=== PATIENT | male | born 1970 | race Hispanic/Latino ===

== ENCOUNTER 2020-03-11 14:38 | Emergency (ER) | payer MEDICARE ==
--- NOTE | 2020-03-11 20:45 | Emergency Department Report ---
ED Medical Clearance HPI - General Chief complaint: Medical Clearance Stated complaint: MED REFILL/BLOOD WORK Time Seen by Provider: 03/11/20 20:31 Source: patient Mode of arrival: Ambulatory Limitations: No Limitations - History of Present Illness Initial comments: Patient is a 50-year-old male that presents emergency room with complaints of being out of his Prozac, metformin and clozapine. Patient states he ran out of his medications 2 weeks ago. Patient states he has an appointment next Saturday at [facility] for refills. Patient states he is unable to get refills from his previous doctor in [place] due to not having recent labs. Patient denies pain. Patient denies suicidal and homicidal ideation. Patient denies hallucinations. Patient denies any racing thoughts. Patient denies any psychosis symptoms. Patient states he is feeling nervous since he has not had his medications in so long. Patient denies recent travel. Patient denies recent international travel. Patient denies exposure to the novel coronavirus. Patient denies sick contacts. Patient denies fever and chills. Patient denies cough. Patient denies corie rrhea. Patient denies coming in contact with anybody with symptoms of the novel coronavirus. Complaint: medical clearance request -: Sudden Reason for Medical Clearance: psychiatric condition Alledged Intoxication: No Compliant with Home Medications: No Home medications: Home Medications Medication Instructions Recorded Confirmed Last Taken amLODIPine [Norvasc] 5 mg PO DAILY 01/09/14 03/09/16 01/09/14 cloZAPine (NF) 600 mg PO QHS 01/09/14 03/09/16 01/08/14 cloZAPine (NF) [Clozapine] 200 mg PO QAM 01/09/14 03/09/16 01/09/14 metFORMIN [Glucophage] 1,000 mg PO QAM 01/09/14 03/09/16 01/09/14 metFORMIN [Glucophage] 500 mg PO QHS 01/09/14 03/09/16 01/09/14 Previous Rx's Medication Instructions Recorded Last Taken Type FLUoxetine [PROzac] 20 mg PO QDAY #14 capsule 03/09/16 Unknown Rx Allergies/Adverse reactions: Allergies Allergy/AdvReac Type Severity Reaction Status Date / Time No Known Allergies Allergy Verified 03/09/16 05:40 ED Review of Systems ROS: Stated complaint: MED REFILL/BLOOD WORK Other details as noted in HPI Comment: Unobtainable due to pts medical conditions Constitutional: denies: chills, fever Eyes: denies: eye pain, eye discharge, vision change ENT: denies: ear pain, throat pain Respiratory: denies: cough, shortness of breath, wheezing Cardiovascular: denies: chest pain, palpitations Endocrine: no symptoms reported Gastrointestinal: denies: abdominal pain, nausea, diarrhea Genitourinary: denies: urgency, dysuria Musculoskeletal: denies: back pain, joint swelling, arthralgia Skin: denies: rash, lesions Neurological: denies: headache, weakness, paresthesias Psychiatric: anxiety. denies: depression Hematological/Lymphatic: denies: easy bleeding, easy bruising ED Past Medical Hx - Past Medical History Previous Medical History?: Yes Hx Hypertension: Yes Hx Diabetes: Yes Hx Psychiatric Treatment: Yes (BIPOLAR/SCHIZO) Additional medical history: depression - Surgical History Past Surgical History?: No - Social History Smoking Status: Never Smoker Substance Use Type: None - Medications Home Medications: Home Medications Medication Instructions Recorded Confirmed Last Taken Type amLODIPine [Norvasc] 5 mg PO DAILY 01/09/14 03/09/16 01/09/14 History cloZAPine (NF) 600 mg PO QHS 01/09/14 03/09/16 01/08/14 History cloZAPine (NF) [Clozapine] 200 mg PO QAM 01/09/14 03/09/16 01/09/14 History metFORMIN [Glucophage] 1,000 mg PO QAM 01/09/14 03/09/16 01/09/14 History metFORMIN [Glucophage] 500 mg PO QHS 01/09/14 03/09/16 01/09/14 History FLUoxetine [PROzac] 20 mg PO QDAY #14 capsule 03/09/16 Unknown Rx ED Physical Exam - General Limitations: No Limitations General appearance: alert, in no apparent distress - Head Head exam: Present: atraumatic, normocephalic - Eye Eye exam: Present: normal appearance - ENT ENT exam: Present: mucous membranes moist - Neck Neck exam: Present: normal inspection - Respiratory Respiratory exam: Present: normal lung sounds bilaterally. Absent: respiratory distress - Cardiovascular Cardiovascular Exam: Present: regular rate, normal rhythm. Absent: systolic murmur, diastolic murmur, rubs, gallop - GI/Abdominal GI/Abdominal exam: Present: soft, normal bowel sounds - Rectal Rectal exam: Present: deferred - Extremities Exam Extremities exam: Present: normal inspection - Back Exam Back exam: Present: normal inspection - Neurological Exam Neurological exam: Present: alert, oriented X3 - Psychiatric Psychiatric exam: Present: normal affect, normal mood - Skin Skin exam: Present: warm, dry, intact, normal color. Absent: rash ED Course Vital Signs 03/11/20 03/11/20 03/11/20 14:39 21:22 21:26 Temperature 98.5 F 98.6 F 98.4 F Pulse Rate 97 H 87 85 Respiratory 18 16 16 Rate Blood Pressure 132/86 134/95 Blood Pressure 134/95 [Right] O2 Sat by Pulse 97 96 96 Oximetry - Reevaluation(s) Reevaluation #1: I discussed all clinical findings with patient. I discussed plan of care with patient. Patient agrees with plan of care. Patient is stable for discharge. Patient will be discharged home. Patient given discharge instructions. Patient voiced understanding of discharge instructions. 03/11/20 20:53 ED Medical Decision Making - Medical Decision Making Patient is a 50-year-old male that presents emergency room with complaints of needing refills. Patient states he is been out of his medications for 2 weeks. Patient does not have any emergency medical condition. Patient had a medical clearance exam. Patient is medically cleared for discharge. Patient already has an appointment for a follow-up with [facility]. Patient will be given resources for this community. Patient does not require further emergency medical treatment. Patient does not require inpatient psychiatric treatment. Patient does not need a 1013. - Differential Diagnosis Medication refill, anxiety ED Disposition Clinical Impression: Medication refill Schizophrenia Qualifiers: Schizophrenia type: unspecified Qualified Code(s): F20.9 - Schizophrenia, unspecified Disposition: Z-07 MED SCREENING EXAM-LEFT Is pt being admited?: No Does the pt Need Aspirin: No Condition: Stable Instructions: Anxiety (ED) Additional Instructions: Patient to follow-up with primary care in 2 to 3 days. Patient to follow-up with mental health in 2 to 3 days. Patient to rest. Patient to increase water. . Patient to return to the ER if condition worsens, changes or new symptoms arise. Referrals: ELIANA RECINOS MD [Primary Care Provider] - 2-3 Days GRANT MAC MD [Staff Physician] - GM Time of Disposition: 20:56
[2020-03-11 21:25] VITALS: BP 134/95
== END 2020-03-11 21:27 | disposition left against medical advice (07) ==
LOC: ED 14:38
DX: F20.9 Schizophrenia, unspecified (principal); I10 Essential (primary) hypertension; E11.9 Type 2 diabetes mellitus without complications; F32.9 Major depressive disorder, single episode, unspecified; Z76.0 Encounter for issue of repeat prescription; Z79.899 Other long term (current) drug therapy
CPT/HCPCS: 99282

== ENCOUNTER 2020-12-30 18:30 | Emergency (ER) | payer MEDICARE ==
--- NOTE | 2020-12-30 18:57 | Event Note ---
ED Screening Note Date of service: 12/30/20 Time: 18:54 ED Screening Note: 50-year-old male patient with history of diabetes presents to the emergency department with complaints of rash progressively worsening for 2 weeks. Describes the rash as "burning." The rash is primarily localized to his arms and the back of his neck. No new medications. No current antibiotic use. No recent travel. No new chemical exposures. Patient sometimes works with bleach but states his arms did not come into direct contact with the product. General: Awake, appropriately interactive, no acute distress. Neck: Supple. Full range of motion intact. Cardiovascular: Normal peripheral perfusion. Pulmonary: No respiratory distress. Patient is speaking normally without use of accessory muscles. Skin: Erythematous macular rash to the upper extremities. Well-demarcated. Increased warmth on palpation. Neurological: No facial asymmetry. Speech is clear. Follows commands. Patient is alert and oriented. Musculoskeletal: Moves all four extremities spontaneously with normal range of motion. Psych: Cooperative. Appropriate mood and affect. I have greeted and performed a focused rapid initial assessment of this patient. A comprehensive ED assessment and evaluation of the patient, analysis of all test results, and completion of the medical decision-making process will be conducted by additional ED providers. This initial assessment/diagnostic orders/clinical plan/treatment(s) is/are subject to change based on patients health status, clinical progression and re-assessment. Further treatment and workup at subsequent clinical provider's discretion. Patient/guardian urged not to elope from the ED as their condition may be serious if not clinically assessed and managed.
[2020-12-30 19:46] LABS: Basophils # (Auto) 0.1 K/mm3 (0.0-0.1); Eosinophils # (Auto) 0.4 K/mm3 (0.0-0.4); Eosinophils % (Auto) 4.4 % (0.0-4.3); Hematocrit 39.2 % (35.5-45.6); Hemoglobin 13.2 gm/dl (11.8-15.2); Lymphocytes % (Auto) 12.1 % (13.4-35.0); Mean Corpuscular HGB Conc 34 % (32-34); Mean Corpuscular Volume 75 fl (84-94); Monocytes # (Auto) 0.5 K/mm3 (0.0-0.8); Monocytes % (Auto) 5.6 % (0.0-7.3); Platelet Count 243 K/mm3 (140-440); Red Blood Count 5.23 M/mm3 (3.65-5.03); Red Cell Distribution Width 14.6 % (13.2-15.2)
[2020-12-30 20:03] LABS: BUN/Creatinine Ratio 8; Blood Urea Nitrogen 9 mg/dL (9-20); Calcium 8.5 mg/dL (8.4-10.2); Hemolysis Index 14
--- NOTE | 2020-12-30 21:36 | Emergency Department Report ---
ED General Adult HPI - General Chief complaint: Burn/Smoke Inhalation Stated complaint: ALLERGIC REACTION Time Seen by Provider: 12/30/20 20:46 Source: patient Mode of arrival: Ambulatory Limitations: No Limitations - History of Present Illness Initial comments: 50-year-old male, history of schizophrenia, diabetes, presents to ED with redness to bilateral arms. Patient reports onset 2 weeks ago. Patient denies pain, but reports burning sensation to both arms. Patient also states he has been scratching his arms because they have been itching. Patient states he initially thought it was sunburn from being outside. Patient states he takes Metformin, Prozac, and clozapine. Patient denies any new medications. Patient states he has been treating this with cocoa butter and Vaseline. Both hands and arms are swollen. Patient states he uses bleach to clean his dishes and bathroom, but states his arms did not come in contact with the bleach. States he uses regular household cleaning spray that has bleach in it. He denies any new lotions, soaps. Patient does not have any other part of his body that has been affected, only bilateral arms and hands. Shoulders and upper arms are not affected either. It appears to be a well demarcated area of exposed skin. Erythema stops where his T-shirt sleeve begins. Patient denies dipping his arms into anything. Patient denies any oral lesions. Patient denies fever. Patient states he may have a history of psoriasis, he is unsure. She states he has an appointment with his PCP on Saturday, January 02. He is also requesting refills on his Metformin. -: week(s) (2) Location: left, right, upper extremity Severity scale (0 -10): 8 Quality: burning Consistency: constant Improves with: none Worsens with: none Associated Symptoms: denies: fever/chills Treatments Prior to Arrival: other (Vaseline, cocoa butter) - Related Data Home Medications Medication Instructions Recorded Confirmed Last Taken amLODIPine [Norvasc] 5 mg PO DAILY 01/09/14 03/09/16 01/09/14 cloZAPine (NF) 600 mg PO QHS 01/09/14 03/09/16 01/08/14 cloZAPine (NF) [Clozapine] 200 mg PO QAM 01/09/14 03/09/16 01/09/14 metFORMIN [Glucophage] 1,000 mg PO QAM 01/09/14 03/09/16 01/09/14 Previous Rx's Medication Instructions Recorded Last Taken Type FLUoxetine [PROzac] 20 mg PO QDAY #14 capsule 03/09/16 Unknown Rx Clindamycin [Clindamycin CAP] 300 mg PO Q8H 10 Days #30 cap 12/30/20 Unknown Rx diphenhydrAMINE [Benadryl CAP] 25 mg PO Q8HR #30 capsule 12/30/20 Unknown Rx metFORMIN [Glucophage] 500 mg PO BID #60 12/30/20 Unknown Rx predniSONE [Deltasone] 50 mg PO QDAY #5 tab 12/30/20 Unknown Rx Allergies Allergy/AdvReac Type Severity Reaction Status Date / Time No Known Allergies Allergy Verified 03/09/16 05:40 ED Review of Systems ROS: Stated complaint: ALLERGIC REACTION Other details as noted in HPI Comment: All other systems reviewed and negative Constitutional: denies: chills, fever Skin: as per HPI ED Past Medical Hx - Past Medical History Previous Medical History?: Yes Hx Hypertension: Yes Hx Diabetes: Yes Hx Psychiatric Treatment: Yes (BIPOLAR/SCHIZO) Additional medical history: depression - Surgical History Past Surgical History?: No - Social History Smoking Status: Never Smoker Substance Use Type: None - Medications Home Medications: Home Medications Medication Instructions Recorded Confirmed Last Taken Type amLODIPine [Norvasc] 5 mg PO DAILY 01/09/14 03/09/16 01/09/14 History cloZAPine (NF) 600 mg PO QHS 01/09/14 03/09/16 01/08/14 History cloZAPine (NF) [Clozapine] 200 mg PO QAM 01/09/14 03/09/16 01/09/14 History metFORMIN [Glucophage] 1,000 mg PO QAM 01/09/14 03/09/16 01/09/14 History FLUoxetine [PROzac] 20 mg PO QDAY #14 capsule 03/09/16 Unknown Rx Clindamycin [Clindamycin CAP] 300 mg PO Q8H 10 Days #30 cap 12/30/20 Unknown Rx diphenhydrAMINE [Benadryl CAP] 25 mg PO Q8HR #30 capsule 12/30/20 Unknown Rx metFORMIN [Glucophage] 500 mg PO BID #60 12/30/20 Unknown Rx predniSONE [Deltasone] 50 mg PO QDAY #5 tab 12/30/20 Unknown Rx ED Physical Exam - General Limitations: No Limitations General appearance: alert, in no apparent distress - Head Head exam: Present: atraumatic, normocephalic - Eye Eye exam: Present: normal appearance, EOMI - ENT ENT exam: Present: mucous membranes moist - Neck Neck exam: Present: normal inspection - Respiratory Respiratory exam: Present: normal lung sounds bilaterally. Absent: respiratory distress - Cardiovascular Cardiovascular Exam: Present: regular rate, normal rhythm - GI/Abdominal GI/Abdominal exam: Present: soft. Absent: distended, tenderness - Extremities Exam Extremities exam: Present: full ROM, other (Mild swelling to bilateral hands, forearms, upper arms) - Neurological Exam Neurological exam: Present: alert, oriented X3. Absent: motor sensory deficit - Psychiatric Psychiatric exam: Present: normal affect, normal mood - Skin Skin exam: Present: other (Erythema present to the bilateral arms from the mid upper arm down to the fingers; well-demarcated line with the t-shirt sleeves; no tenderness to palpation; no blisters or bullae present; hands appear macerated) ED Course Vital Signs 12/30/20 12/30/20 12/30/20 18:49 21:37 21:39 Temperature 99.4 F 99.9 F H Pulse Rate 87 94 H Respiratory 20 18 Rate Blood Pressure 202/104 145/79 [Right] O2 Sat by Pulse 97 99 Oximetry 12/30/20 23:23 Temperature Pulse Rate Respiratory 16 Rate Blood Pressure [Right] O2 Sat by Pulse Oximetry ED Medical Decision Making - Lab Data Result diagrams: 12/30/20 19:13 12/30/20 19:13 - Medical Decision Making 50-year-old male presents to ED with redness to bilateral arms x2 weeks. Patient is afebrile. Patient has no blisters or bullae present. Patient has no mucosal lesions present. Patient has well demarcated line on his upper arms bilaterally which suggests exposure to some sort of irritant. WBCs are normal. Remainder of labs are unremarkable. Patient has upcoming appointment in 3 days with his PCP. Patient will be discharged at this time. Patient has not been on any medications thus far for the skin condition. Patient will be given prescription for Benadryl, clindamycin, prednisone. He will also be given information for follow-up with a rotary drier feeder. Return precautions given. - Differential Diagnosis Sunburn, allergic reaction, chemical exposure Critical care attestation.: If time is entered above; I have spent that time in minutes in the direct care of this critically ill patient, excluding procedure time. ED Disposition Clinical Impression: Dermatitis Disposition: DC-01 TO HOME OR SELFCARE Is pt being admited?: No Condition: Stable Instructions: Rash, Adult Additional Instructions: Please call to make an appointment with the rotary drier feeder: Dr Earl Santoyo- rotary drier feeder [phone] [place] [address] [address] [place] [address] Return to the ER immediately if: you develop fever, the rash spreads, you develop oral lesions. Prescriptions: diphenhydrAMINE [Benadryl CAP] 25 mg PO Q8HR #30 capsule Clindamycin [Clindamycin CAP] 300 mg PO Q8H 10 Days #30 cap predniSONE [Deltasone] 50 mg PO QDAY #5 tab metFORMIN [Glucophage] 500 mg PO BID #60 Referrals: PRIMARY CARE, [Primary Care Provider] - 3-5 Days Time of Disposition: 22:04
[2020-12-30 21:39] VITALS: BP 145/79
== END 2020-12-30 22:25 | disposition home or self-care (01) ==
LOC: ED 18:30
DX: L30.9 Dermatitis, unspecified (principal); I10 Essential (primary) hypertension; E11.9 Type 2 diabetes mellitus without complications; F31.9 Bipolar disorder, unspecified; Z79.84 Long term (current) use of oral hypoglycemic drugs; Z79.899 Other long term (current) drug therapy
CPT/HCPCS: 36415; 80048; 85025

== ENCOUNTER 2021-06-07 22:44 | Inpatient (IN) | payer MEDICARE ==
[2021-06-07] MEDS ORDERED: SODIUM CHLORIDE 0.9% 1000 ML 1,000 ML IV ONE (23:03)
[2021-06-07] MEDS ORDERED: ONDANSETRON 4 MG/2 ML INJ IV ONE (23:03)
[2021-06-07] MEDS ORDERED: MORPHINE 4 MG/1 ML INJ IV ONE (23:04)
--- NOTE | 2021-06-07 23:06 | Emergency Department Report ---
<CAIT BURNS - Last Filed: 06/08/21 00:39> ED Abdominal Pain HPI - General Chief Complaint: Abdominal Pain Stated Complaint: ABD PAIN Time Seen by Provider: 06/07/21 22:57 Source: patient, EMS Mode of arrival: Stretcher Limitations: No Limitations - History of Present Illness Initial Comments: 51-year-old male with a past medical history of schizophrenia, bipolar disorder, and diabetes presents to the hospital complaining abdominal pain for the past 3 to 4 days. Pain is intermittent in the lower abdomen worse with palpation. Positive associated diarrhea without nausea, vomiting, melena, or hematochezia. Low-grade temp of 100.2 noted here in the ED. Patient is vaccinated for Covid. Patient presents tachycardic. He did not have anything to eat today. He has not taken his evening dose of his twice daily clonazepam. Patient denies previous abdominal surgeries. - Related Data Home Medications Medication Instructions Recorded Confirmed Last Taken amLODIPine [Norvasc] 5 mg PO DAILY 01/09/14 03/09/16 01/09/14 cloZAPine (NF) 600 mg PO QHS 01/09/14 03/09/16 01/08/14 cloZAPine (NF) [Clozapine] 200 mg PO QAM 01/09/14 03/09/16 01/09/14 metFORMIN [Glucophage] 1,000 mg PO QAM 01/09/14 03/09/16 01/09/14 Previous Rx's Medication Instructions Recorded Last Taken Type FLUoxetine [PROzac] 20 mg PO QDAY #14 capsule 03/09/16 Unknown Rx Clindamycin [Clindamycin CAP] 300 mg PO Q8H 10 Days #30 cap 12/30/20 Unknown Rx diphenhydrAMINE [Benadryl CAP] 25 mg PO Q8HR #30 capsule 12/30/20 Unknown Rx metFORMIN [Glucophage] 500 mg PO BID #60 12/30/20 Unknown Rx predniSONE [Deltasone] 50 mg PO QDAY #5 tab 12/30/20 Unknown Rx Allergies Allergy/AdvReac Type Severity Reaction Status Date / Time No Known Allergies Allergy Verified 06/07/21 22:55 ED Review of Systems Comment: All other systems reviewed and negative ED Past Medical Hx - Past Medical History Hx Hypertension: Yes Hx Diabetes: Yes Hx Psychiatric Treatment: Yes (BIPOLAR/SCHIZO) Additional medical history: depression - Social History Smoking Status: Never Smoker Substance Use Type: None - Medications Home Medications: Home Medications Medication Instructions Recorded Confirmed Last Taken Type amLODIPine [Norvasc] 5 mg PO DAILY 01/09/14 03/09/16 01/09/14 History cloZAPine (NF) 600 mg PO QHS 01/09/14 03/09/16 01/08/14 History cloZAPine (NF) [Clozapine] 200 mg PO QAM 01/09/14 03/09/16 01/09/14 History metFORMIN [Glucophage] 1,000 mg PO QAM 01/09/14 03/09/16 01/09/14 History FLUoxetine [PROzac] 20 mg PO QDAY #14 capsule 03/09/16 Unknown Rx Clindamycin [Clindamycin CAP] 300 mg PO Q8H 10 Days #30 cap 12/30/20 Unknown Rx diphenhydrAMINE [Benadryl CAP] 25 mg PO Q8HR #30 capsule 12/30/20 Unknown Rx metFORMIN [Glucophage] 500 mg PO BID #60 12/30/20 Unknown Rx predniSONE [Deltasone] 50 mg PO QDAY #5 tab 12/30/20 Unknown Rx ED Physical Exam - General Limitations: No Limitations - Other Other exam information: General: No acute distress Head: Atraumatic Eyes: normal appearance ENT: Moist mucous membranes Neck: Normal appearance, no midline tenderness Chest: Clear to auscultation bilaterally CV: Tachycardic regular rate and rhythm Abdomen: Soft, normal bowel sounds,. Right lower quadrant tenderness without rebound or guarding Back: Normal inspection Extremity: Normal inspection, full range of motion Neuro: Alert O x 3, no facial asymmetry, speech clear, no gross motor sensory deficit Psych: Appropriate behavior Skin: No rash ED Medical Decision Making - Lab Data Result diagrams: 06/07/21 23:34 - EKG Data -: EKG Interpreted by Me EKG shows normal: sinus rhythm, intervals (VT and QTc intervals within normal limit), QRS complexes (QRS duration normal limits), ST-T waves (no stemi) Rate: tachycardia (128) - EKG Data When compared to previous EKG there are: no significant change - Medical Decision Making Patient's tachycardia either secondary to dehydration, pain, fever, infection, or clonazepam withdrawal. Patient signed out to evening physician to follow-up chemistries as well as CT abdomen pelvis ED Disposition Clinical Impression: Acute appendicitis Disposition: 09 ADMITTED INPATIENT Condition: Stable Referrals: PRIMARY CARE, [Primary Care Provider] - 3-5 Days <COLE BASILIO - Last Filed: 06/08/21 01:48> ED Review of Systems ROS: Stated complaint: ABD PAIN Other details as noted in HPI ED Course Vital Signs 06/07/21 06/07/21 06/08/21 22:55 23:45 01:34 Temperature 100.2 F H Pulse Rate 120 H Respiratory 20 20 Rate Blood Pressure 154/114 [Left] O2 Sat by Pulse 97 98 Oximetry ED Medical Decision Making - Lab Data Result diagrams: 06/07/21 23:34 06/07/21 23:34 - Medical Decision Making 51-year-old male with a past medical history of schizophrenia, bipolar disorder, and diabetes presents to the hospital complaining abdominal pain for the past 3 to 4 days. Pain is intermittent in the lower abdomen worse with palpation. Positive associated diarrhea without nausea, vomiting, melena, or hematochezia. Low-grade temp of 100.2 noted here in the ED. Patient is vaccinated for Covid. Patient presents tachycardic. He did not have anything to eat today. He has not taken his evening dose of his twice daily clonazepam. Patient denies previous abdominal surgeries. Labs reviewed and showed leukocytosis. CT abdomen and pelvis with IV contrast showed acute appendicitis with contained perforation. I discussed the patient with Dr. Garcia, surgeon on-call. She stated that she will see the patient. I discussed the patient with Dr. Ho, he agreed to admit the patient to medical service for further management. Critical Care Time: Yes Critical care time in (mins) excluding proc time.: 35 Critical care attestation.: If time is entered above; I have spent that time in minutes in the direct care of this critically ill patient, excluding procedure time. ED Disposition Is pt being admited?: Yes
[2021-06-07 23:49] LABS: Hematocrit 41.4 % (35.5-45.6); Hemoglobin 13.8 gm/dl (11.8-15.2); Mean Corpuscular HGB Conc 33 % (32-34); Mean Corpuscular Volume 75 fl (84-94); Platelet Count 180 K/mm3 (140-440); Red Blood Count 5.55 M/mm3 (3.65-5.03); Red Cell Distribution Width 15.1 % (13.2-15.2)
[2021-06-07] MEDS ORDERED: ACETAMINOPHEN 325 MG TAB PO ONE (23:51)
[2021-06-08 00:50] LABS: Albumin 4.5 g/dL (3.9-5); Bilirubin,Direct 0.3 mg/dL (0-0.2); Calcium 9.1 mg/dL (8.4-10.2)
--- NOTE | 2021-06-08 01:20 | Cat Scan Report ---
CT ABDOMEN AND PELVIS WITH CONTRAST INDICATION / CLINICAL INFORMATION: Lower abdominal pain with diarrhea. TECHNIQUE: Axial CT images were obtained through the abdomen and pelvis after 100 mL Omnipaque [address] scans at this location are performed using CT dose reduction for ALARA by means of automated exposure control. COMPARISON: None available. FINDINGS: LOWER CHEST: Tiny bilateral pleural effusions. LIVER: Mild hepatic steatosis. Simple appearing cyst in the posterior segment of the right lobe. GALLBLADDER: Several tiny, layering gallstones without gallbladder wall thickening or inflammation. BILE DUCTS: No significant abnormality. PANCREAS: No significant abnormality. SPLEEN: No significant abnormality. ADRENALS: No significant abnormality. RIGHT KIDNEY / URETER: Enhancing mass on the lower pole measuring 3.6 x 4.0 x 4.2 cm. LEFT KIDNEY / URETER: 4.4 cm simple cyst on the lower pole. No significant abnormality. STOMACH / SMALL BOWEL: Fluid-filled, mildly dilated loops of small bowel likely representing ileus. COLON: Mild thickening of the sigmoid colon adjacent to the inflamed appendix. APPENDIX: Dilated and inflamed appendix with moderate adjacent periappendiceal inflammation. Small fo cus of extraluminal gas adjacent to the appendix likely representing contained perforation as seen on axial series 2 image 144 and coronal image 91. No abscess. PERITONEUM: No free fluid. No free air. No fluid collection. LYMPH NODES: No significant adenopathy. AORTA / ARTERIES: No significant abnormality. IVC / VEINS: No significant abnormality. URINARY BLADDER: No significant abnormality. REPRODUCTIVE ORGANS: No significant abnormality. ADDITIONAL FINDINGS: None. SKELETAL SYSTEM: No significant abnormality. IMPRESSION: 1. Acute appendicitis with small area of contained perforation. No abscess. 2. Small bowel ileus and sigmoid thickening related to appendicitis. 3. Enhancing mass of the lower pole of the right kidney measuring up to 4.2 cm likely representing re nal cell carcinoma. No adenopathy or metastatic disease. 4. Mild hepatic steatosis and cholelithiasis. Signer Name: Alcides Cornelius MD Signed: 06/08/2021 1:15 AM Workstation Name: [id number]
[2021-06-08] MEDS ORDERED: PIPERACILLIN/TAZOBACTAM 3.375 3.375 GM/50 ML BAG IV ONE (01:23)
[2021-06-08] MEDS ORDERED: MORPHINE 2 MG/1 ML INJ IV PRN (02:20)
[2021-06-08] MEDS ORDERED: NALOXONE 0.4 MG/1 ML INJ IV PRN (02:20)
[2021-06-08] MEDS ORDERED: DEXTROSE 50% IN WATER (25GM) 50 ML SYRINGE IV PRN (02:20)
[2021-06-08] MEDS ORDERED: ACETAMINOPHEN 650 MG RECT SUPP PR PRN (02:20)
[2021-06-08] MEDS ORDERED: hydrALAZINE 20 MG/1 ML INJ IV PRN (02:25)
[2021-06-08 02:54] LABS: Total Cells Counted 100
[2021-06-08 02:55] LABS: Anisocytosis RARE; Hypochromasia 1+
--- NOTE | 2021-06-08 02:55 | History and Physical Report ---
History of Present Illness Date of examination: 06/08/21 Date of admission: 06/08/2021 Chief complaint: abdominal pain, nausea History of present illness: 51-year-old male with history of schizophrenia, bipolar disorder, DM2, HTN, who presents to [facility] ED with complaints of abdominal pain. Reports aching intermittent 8/10 right lower quadrant abdominal pain which is worse with palpation x 3-4 days. Endorses diarrhea, nausea, and temperature (TMAX 100.2). Denies emesis, melena, hematochezia, recent foodborne illness, or recent sick contacts. Patient is vaccinated for COVID-19. Denies SALINAS, CP, SOB, constipation, dysuria, hematuria, cough, history of abdominal surgery, or recent sick contacts Past History Past Medical History: diabetes (Type II), hypertension, other (Schizophrenia, bipolar disorder, obesity) Past Surgical History: Other (Orchidectomy (childhood surgery)) Social history: single, lives with family (Sister and niece), full code. denies: smoking, alcohol abuse, prescription drug abuse Family history: hypertension Medications and Allergies Allergies Allergy/AdvReac Type Severity Reaction Status Date / Time No Known Allergies Allergy Verified 06/07/21 22:55 Home Medications Medication Instructions Recorded Confirmed Last Taken Type amLODIPine [Norvasc] 5 mg PO DAILY 01/09/14 03/09/16 01/09/14 History cloZAPine (NF) 600 mg PO QHS 01/09/14 03/09/16 01/08/14 History cloZAPine (NF) [Clozapine] 200 mg PO QAM 01/09/14 03/09/16 01/09/14 History metFORMIN [Glucophage] 1,000 mg PO QAM 01/09/14 03/09/16 01/09/14 History FLUoxetine [PROzac] 20 mg PO QDAY #14 capsule 03/09/16 Unknown Rx Clindamycin [Clindamycin CAP] 300 mg PO Q8H 10 Days #30 cap 12/30/20 Unknown Rx diphenhydrAMINE [Benadryl CAP] 25 mg PO Q8HR #30 capsule 12/30/20 Unknown Rx metFORMIN [Glucophage] 500 mg PO BID #60 12/30/20 Unknown Rx predniSONE [Deltasone] 50 mg PO QDAY #5 tab 12/30/20 Unknown Rx Active Meds: Active Medications Acetaminophen (Acetaminophen 650 Mg Rect Supp) 650 mg [place] Q4H PRN PRN Reason: Pain MILD(1-3)/Fever >100.5/SALINAS Dextrose (Dextrose 50% In Water (25gm) 50 Ml Syringe) 50 ml IV Q30MIN PRN; Protocol PRN Reason: Hypoglycemia Famotidine (Famotidine 20 Mg/2 Ml Inj) 10 mg IV BID [place] Heparin Sodium (Porcine) (Heparin 5,000 Unit/1 Ml Vial) 5,000 unit SUB-Q Q12HR [facility] Hydralazine HCl (Hydralazine 20 Mg/1 Ml Inj) 5 mg IV Q4HR PRN PRN Reason: Blood Pressure Hydromorphone HCl (Hydromorphone 1 Mg/1 Ml Inj) 0.5 mg IV Q3H PRN PRN Reason: Pain , Severe (7-10) Dextrose/Sodium Chloride (D5ns) 1,000 mls @ 75 mls/hr IV DIRECT [facility] Insulin Human Lispro (Insulin Lispro 100 Unit/Ml) 0 unit SUB-Q Q6HR [facility]; Protocol Morphine Sulfate (Morphine 2 Mg/1 Ml Inj) 2 mg IV Q4H PRN PRN Reason: Pain, Moderate (4-6) Naloxone HCl (Naloxone 0.4 Mg/1 Ml Inj) 0.1 mg IV Q2MIN PRN PRN Reason: Res Rate </= 8 or 02 SAT < 92% Ondansetron HCl (Ondansetron 4 Mg/2 Ml Inj) 4 mg IV Q6H PRN PRN Reason: Nausea And Vomiting Sodium Chloride (Sodium Chloride 0.9% 10 Ml Flush Syringe) 10 ml IV BID [place] Sodium Chloride (Sodium Chloride 0.9% 10 Ml Flush Syringe) 10 ml IV PRN PRN PRN Reason: LINE FLUSH Review of Systems All systems: negative (As noted in HPI) Exam - Physical Exam Narrative exam: Physical exam General appearance: Present: No acute distress, alert and oriented 3, adult male - EENT Eyes: Present: PERRL, EOM intact ENT: hearing intact, normal dentition - Neck Neck: Present: supple, normal ROM - Respiratory Respiratory effort: Non-labored Respiratory: Diminished bases - Cardiovascular Heart rate: 117 (bpm) Rhythm: Sinus tachycardia Heart Sounds: Present: S1 & S2. Absent: rub, click - Extremities Extremities: no ischemia, pulses intact, - Peripheral Assessment Peripheral Pulses: within normal limits - Abdominal General gastrointestinal: soft, RLQ tenderness, no rebound, normal bowel sounds - Integumentary Integumentary: Present: warm, dry - Musculoskeletal Musculoskeletal: Able to move all extremities -Neurological Neurological: CN II-XII intact - Psychiatric Psychiatric: cooperative - Constitutional Vitals: Temp Pulse Resp BP Pulse Ox 98.8 F 117 H 20 113/63 95 06/08/21 01:47 06/08/21 01:47 06/08/21 01:47 06/08/21 01:47 06/08/21 01:47 Results - Labs CBC & Chem 7: 06/07/21 23:34 06/07/21 23:34 Labs: Laboratory Last Values WBC 11.1 K/mm3 (4.5-11.0) H 06/07/21 23:34 RBC 5.55 M/mm3 (3.65-5.03) H 06/07/21 23:34 Hgb 13.8 gm/dl (11.8-15.2) 06/07/21 23:34 Hct 41.4 % (35.5-45.6) 06/07/21 23:34 MCV 75 fl (84-94) L 06/07/21 23:34 MCH 25 pg (28-32) L 06/07/21 23:34 MCHC 33 % (32-34) 06/07/21 23:34 RDW 15.1 % (13.2-15.2) 06/07/21 23:34 Plt Count 180 K/mm3 (140-440) 06/07/21 23:34 Seg Neutrophils % [employer] In[employer] 06/07/21 23:34 Sodium 134 mmol/L (137-145) L 06/07/21 23:34 Potassium 3.8 mmol/L (3.6-5.0) 06/07/21 23:34 Chloride 98.3 mmol/L (98-107) 06/07/21 23:34 Carbon Dioxide 20 mmol/L (22-30) L 06/07/21 23:34 Anion Gap 20 mmol/L 06/07/21 23:34 BUN 13 mg/dL (9-20) 06/07/21 23:34 Creatinine 1.3 mg/dL (0.8-1.3) 06/07/21 23:34 Estimated GFR 58 ml/min 06/07/21 23:34 BUN/Creatinine Ratio 10 % 06/07/21 23:34 Glucose 187 mg/dL (75-100) H 06/07/21 23:34 POC Glucose 173 mg/dL (70-105) H 06/07/21 23:09 Calcium 9.1 mg/dL (8.4-10.2) 06/07/21 23:34 Total Bilirubin 0.90 mg/dL (0.1-1.2) 06/07/21 23:34 Direct Bilirubin 0.3 mg/dL (0-0.2) H 06/07/21 23:34 Indirect Bilirubin 0.6 mg/dL 06/07/21 23:34 AST 14 units/L (5-40) 06/07/21 23:34 ALT 17 units/L (7-56) 06/07/21 23:34 Alkaline Phosphatase 119 units/L (35-129) 06/07/21 23:34 Total Protein 6.9 g/dL (6.3-8.2) 06/07/21 23:34 Albumin 4.5 g/dL (3.9-5) 06/07/21 23:34 Albumin/Globulin Ratio 1.9 % 06/07/21 23:34 Lipase 32 units/L (13-60) 06/07/21 23:34 - Imaging and Cardiology Imaging and Cardiology: CT Abd/Pelvis: FINDINGS: LOWER CHEST: Tiny bilateral pleural effusions. LIVER: Mild hepatic steatosis. Simple appearing cyst in the posterior segment of the right lobe. GALLBLADDER: Several tiny, layering gallstones without gallbladder wall thickening or inflammation. BILE DUCTS: No significant abnormality. PANCREAS: No significant abnormality. SPLEEN: No significant abnormality. ADRENALS: No significant abnormality. RIGHT KIDNEY / URETER: Enhancing mass on the lower pole measuring 3.6 x 4.0 x 4.2 cm. LEFT KIDNEY / URETER: 4.4 cm simple cyst on the lower pole. No significant abnormality. STOMACH / SMALL BOWEL: Fluid-filled, mildly dilated loops of small bowel likely representing ileus. COLON: Mild thickening of the sigmoid colon adjacent to the inflamed appendix. APPENDIX: Dilated and inflamed appendix with moderate adjacent periappendiceal inflammation. Small focus of extraluminal gas adjacent to the appendix likely representing contained perforation as seen on axial series 2 image 144 and coronal image 91. No abscess. PERITONEUM: No free fluid. No free air. No fluid collection. LYMPH NODES: No significant adenopathy. AORTA / ARTERIES: No significant abnormality. IVC / VEINS: No significant abnormality. URINARY BLADDER: No significant abnormality. REPRODUCTIVE ORGANS: No significant abnormality. ADDITIONAL FINDINGS: None. SKELETAL SYSTEM: No significant abnormality. IMPRESSION: 1. Acute appendicitis with small area of contained perforation. No abscess. 2. Small bowel ileus and sigmoid thickening related to appendicitis. 3. Enhancing mass of the lower pole of the right kidney measuring up to 4.2 cm likely representing renal cell carcinoma. No adenopathy or metastatic disease. 4. Mild hepatic steatosis and cholelithiasis. Assessment and Plan Assessment and plan: Acute appendicitis -with small area of contained perforation seen on CT abdomen pelvis -Pain management -IVF -On IV ABX -General surgery (Dr. Garcia) consulted with plans to see in a.m. Enhancing right kidney mass -measuring up to 4.2 cm likely representing renal cell carcinoma. No adenopathy or metastatic disease. Incidental finding seen on CT abdomen and pelvis -We will require outpatient follow-up with oncology Leukocytosis -At 11.1 -Likely due to acute appendicitis -Cultures pending -UA pending -Trend CBC -On IV ABX DM2 -POC BG monitoring -SSI coverage prn -HgbA1C pending -Hold home Metformin for now, resume when appropriate Hx of bipolar disorder -noted Hx schizophrenia -noted Hx HTN -Currently borderline hypotension -Hold all antihypertensive meds for now, resume when appropriate DVT PPX -Start Heparin as per surgery recs -On SCD's Advance Directives: No VTE prophylaxis?: Chemical, Mechanical Plan of care discussed with patient/family: Yes
[2021-06-08] MEDS ORDERED: D5W/0.9% NACL 1,000 ML IV SCH (03:00)
[2021-06-08] MEDS ORDERED: MEPERIDINE 25 MG/1 ML INJ IV PRN (05:22)
[2021-06-08] MEDS ORDERED: dexAMETHasone 20 MG/5 ML VIAL ONE (05:31)
[2021-06-08] MEDS ORDERED: KETOROLAC 30 MG/1 ML INJ ONE (05:31)
[2021-06-08] MEDS ORDERED: ROCURONIUM 50 MG/5 ML INJ IV ONE ×2 (05:31→07:04)
[2021-06-08] MEDS ORDERED: ONDANSETRON 4 MG/2 ML INJ ONE (05:31)
[2021-06-08] MEDS ORDERED: fentaNYL 100 MCG/2 ML INJ ONE (05:32)
[2021-06-08] MEDS ORDERED: propofoL 200 MG/20 ML VIAL IV ONE (05:32)
[2021-06-08] MEDS ORDERED: MIDAZOLAM 2 MG/2 ML INJ ONE (05:32)
[2021-06-08] MEDS ORDERED: BUPIVACAINE/PF (0.5%) 5 MG/1 ML 30 ML VIAL INFILTRATI ONE ×2 (05:34→07:03)
[2021-06-08] MEDS ORDERED: LIDOCAINE (1%) 10 MG/1 ML VIAL 20 ML MDV ONE (05:34)
--- NOTE | 2021-06-08 05:52 | Anesthesia Consultation ---
Anesthesia Consult and Med Hx Date of service: 06/08/21 - Airway Anesthetic Teeth Evaluation: Good ROM Head & Neck: Adequate Mental/Hyoid Distance: Adequate Mallampati Class: Class II Intubation Access Assessment: Possibly Difficult - Pulmonary Exam CTA: Yes - Cardiac Exam Cardiac Exam: RRR - Pre-Operative Health Status ASA Pre-Surgery Classification: ASA3 Proposed Anesthetic Plan: General - Pulmonary Hx Asthma: Yes ("has been years ago") - Cardiovascular System Hx Hypertension: Yes - Central Nervous System Hx Psychiatric Problems: Yes (bi-polar, schizophrenia) - Endocrine Hx Non-Insulin Dependent Diabetes: Yes (metformin) - Other Systems Hx Obesity: Yes
--- NOTE | 2021-06-08 06:24 | Consultation ---
History of Present Illness Consult date: 06/08/21 Reason for consult: abdominal pain - History of present illness History of present illness: 51-year-old male with a history of diabetes and hypertension schizophrenia admitted to the emergency room with a 3 to 4-day of abdominal pain. Pain localized to the right lower quadrant and supra pubic area. Patient had some fever with nausea but no vomiting. Patient had a CT scan that showed appendicitis with a small amount of focal free air suggestive of a contained perforation. Patient says the pain is 10 out of 10 and he has never had this pain before. He denies eating any questionable food or having any sick contacts. Past History Past Medical History: diabetes (Type II), hypertension, other (Schizophrenia, bipolar disorder, obesity) Past Surgical History: Other (Orchidectomy (childhood surgery)) Social history: single, lives with family (Sister and niece), full code. denies: smoking, alcohol abuse, prescription drug abuse Family history: hypertension Medications and Allergies Allergies Allergy/AdvReac Type Severity Reaction Status Date / Time No Known Allergies Allergy Verified 06/07/21 22:55 Home Medications Medication Instructions Recorded Confirmed Last Taken Type amLODIPine [Norvasc] 5 mg PO DAILY 01/09/14 03/09/16 01/09/14 History cloZAPine (NF) 600 mg PO QHS 01/09/14 03/09/16 01/08/14 History cloZAPine (NF) [Clozapine] 200 mg PO QAM 01/09/14 03/09/16 01/09/14 History metFORMIN [Glucophage] 1,000 mg PO QAM 01/09/14 03/09/16 01/09/14 History FLUoxetine [PROzac] 20 mg PO QDAY #14 capsule 03/09/16 Unknown Rx Clindamycin [Clindamycin CAP] 300 mg PO Q8H 10 Days #30 cap 12/30/20 Unknown Rx diphenhydrAMINE [Benadryl CAP] 25 mg PO Q8HR #30 capsule 12/30/20 Unknown Rx metFORMIN [Glucophage] 500 mg PO BID #60 12/30/20 Unknown Rx predniSONE [Deltasone] 50 mg PO QDAY #5 tab 12/30/20 Unknown Rx Active Meds: Active Medications Acetaminophen (Acetaminophen 650 Mg Rect Supp) 650 mg [place] Q4H PRN PRN Reason: Pain MILD(1-3)/Fever >100.5/SALINAS Dextrose (Dextrose 50% In Water (25gm) 50 Ml Syringe) 50 ml IV Q30MIN PRN; Protocol PRN Reason: Hypoglycemia Famotidine (Famotidine 20 Mg/2 Ml Inj) 10 mg IV BID [facility] Heparin Sodium (Porcine) (Heparin 5,000 Unit/1 Ml Vial) 5,000 unit SUB-Q Q12HR [facility] Hydralazine HCl (Hydralazine 20 Mg/1 Ml Inj) 5 mg IV Q4HR PRN PRN Reason: Blood Pressure Hydromorphone HCl (Hydromorphone 1 Mg/1 Ml Inj) 0.5 mg IV Q3H PRN PRN Reason: Pain , Severe (7-10) Piperacillin Sod/Tazobactam Sod (Zosyn/Ns 4.5gm/100ml) 4.5 gm in 100 mls @ 200 mls/hr IV Q8H [facility]; Protocol Lactated Ringer's (Lactated Ringers) 1,000 mls @ 100 mls/hr IV DIRECT [facility] Insulin Human Lispro (Insulin Lispro 100 Unit/Ml) 0 unit SUB-Q Q6HR [facility]; Protocol Meperidine HCl (Meperidine 25 Mg/1 Ml Inj) 25 mg IV ONCE PRN PRN Reason: Shivering Morphine Sulfate (Morphine 2 Mg/1 Ml Inj) 2 mg IV Q4H PRN PRN Reason: Pain, Moderate (4-6) Naloxone HCl (Naloxone 0.4 Mg/1 Ml Inj) 0.1 mg IV Q2MIN PRN PRN Reason: Res Rate </= 8 or 02 SAT < 92% Ondansetron HCl (Ondansetron 4 Mg/2 Ml Inj) 4 mg IV Q6H PRN PRN Reason: Nausea And Vomiting Sodium Chloride (Sodium Chloride 0.9% 10 Ml Flush Syringe) 10 ml IV BID [facility] Sodium Chloride (Sodium Chloride 0.9% 10 Ml Flush Syringe) 10 ml IV PRN PRN PRN Reason: LINE FLUSH Review of Systems All systems: negative - Constitutional fever, sweats - Gastrointestinal abdominal pain, nausea Exam Vital Signs Temp Pulse Resp BP Pulse Ox 102.1 F H 98 H 20 97/56 93 06/07/21 22:45 06/07/21 22:45 06/07/21 22:45 06/07/21 22:45 06/07/21 22:45 - General physical appearance Positive: no distress, moderate pain, obese - Eyes Positive: PERRL - ENT Positive: no hearing loss - Respiratory Positive: normal expansion, normal respiratory effort - Cardiovascular Heart Sounds: Present: S1 & S2 - Extremities Extremities: no ischemia - Abdomen Abdomen: Present: soft, other (Tender to palpation in the right lower quadrant). Absent: rebound, guarding, rigid - Neurologic Neurologic: alert and oriented to time, place and person, CN II-XII intact - Psychiatric Psychiatric: appropriate mood/affect Results - Labs 06/07/21 23:34 06/07/21 23:34 Abnormal lab results 06/07/21 06/07/21 06/07/21 Range/Units 23:09 23:34 23:34 WBC 11.1 H (4.5-11.0) K/mm3 RBC 5.55 H (3.65-5.03) M/mm3 MCV 75 L (84-94) fl MCH 25 L (28-32) pg Seg Neuts % (Manual) 89.0 H (40.0-70.0) % Lymphocytes % (Manual) 7.0 L (13.4-35.0) % Seg Neutrophils # Man 9.9 H (1.8-7.7) K/mm3 Lymphocytes # (Manual) 0.8 L (1.2-5.4) K/mm3 Sodium 134 L (137-145) mmol/L Carbon Dioxide 20 L (22-30) mmol/L Glucose 187 H (75-100) mg/dL POC Glucose 173 H (70-105) mg/dL Direct Bilirubin 0.3 H (0-0.2) mg/dL Diabetes panel 06/07/21 06/07/21 Range/Units 23:34 23:34 Sodium 134 L (137-145) mmol/L Potassium 3.8 (3.6-5.0) mmol/L Chloride 98.3 (98-107) mmol/L Carbon Dioxide 20 L (22-30) mmol/L BUN 13 (9-20) mg/dL Creatinine 1.3 (0.8-1.3) mg/dL Glucose 187 H (75-100) mg/dL Hemoglobin A1c 5.9 (4-6) % Calcium 9.1 (8.4-10.2) mg/dL AST 14 (5-40) units/L ALT 17 (7-56) units/L Alkaline Phosphatase 119 (35-129) units/L Total Protein 6.9 (6.3-8.2) g/dL Albumin 4.5 (3.9-5) g/dL Calcium panel 06/07/21 Range/Units 23:34 Calcium 9.1 (8.4-10.2) mg/dL Albumin 4.5 (3.9-5) g/dL Pituitary panel 06/07/21 Range/Units 23:34 Sodium 134 L (137-145) mmol/L Potassium 3.8 (3.6-5.0) mmol/L Chloride 98.3 (98-107) mmol/L Carbon Dioxide 20 L (22-30) mmol/L BUN 13 (9-20) mg/dL Creatinine 1.3 (0.8-1.3) mg/dL Glucose 187 H (75-100) mg/dL Calcium 9.1 (8.4-10.2) mg/dL Adrenal panel 06/07/21 Range/Units 23:34 Sodium 134 L (137-145) mmol/L Potassium 3.8 (3.6-5.0) mmol/L Chloride 98.3 (98-107) mmol/L Carbon Dioxide 20 L (22-30) mmol/L BUN 13 (9-20) mg/dL Creatinine 1.3 (0.8-1.3) mg/dL Glucose 187 H (75-100) mg/dL Calcium 9.1 (8.4-10.2) mg/dL Total Bilirubin 0.90 (0.1-1.2) mg/dL AST 14 (5-40) units/L ALT 17 (7-56) units/L Alkaline Phosphatase 119 (35-129) units/L Total Protein 6.9 (6.3-8.2) g/dL Albumin 4.5 (3.9-5) g/dL - Imaging CT scan - abdomen: report reviewed, image reviewed CT scan - pelvis: report reviewed, image reviewed Assessment and Plan 51-year-old male with acute appendicitis with possible perforation. Febrile and hemodynamically stable. Patient is consented for laparoscopic appendectomy.
[2021-06-08] MEDS ORDERED: ePHEDrine SULFATE 50 MG/1 ML INJ ONE (06:54)
[2021-06-08] MEDS ORDERED: SODIUM CHLORIDE 0.9% IRR 1,500 ML BOTTLE IR ONE (07:04)
[2021-06-08] MEDS ORDERED: WATER FOR IRRIG STERILE 1,500 ML BOTTLE IR ONE (07:04)
[2021-06-08] MEDS ORDERED: LIDOCAINE (1%) 10 MG/1 ML VIAL 20 ML MDV INFILTRATI ONE (07:04)
--- NOTE | 2021-06-08 08:10 | Operative Report ---
Operative Report Operative Report: Date of Service: 06/08/2021 Primary Surgeon: Suri Garcia MD Procedure: Laparoscopic Appendectomy Anesthesia: GETA Pre-Operative Diagnosis: acute appendicitis Post-Operative Diagnosis: gangrenous perforated acute appendicitis Indications for Procedure: 51-year-old male with history of diabetes and hypertension presents emergency room with 3 to 4-day history of abdominal pain. CT scan showed an inflamed appendix with small amount of surrounding free air suggestive of contained perforation. Patient was consented for urgent laparoscopic appendectomy of which expressed understanding risk and benefits. Description of Procedure(s): The patient was brought to the operating room and underwent general anesthesia after lower extremity SCD were placed. The abdomen was prepped and draped in the standard fashion. IV antibiotics were given in the ER and a time out was performed. Using a veress needle via a stab incision in the left upper quadrant, the abdomen was insuflated to a pressure of 15mmHg. Using optivew technique, a 5mm trocar was placed just superior and to the left of the umbilicus. There was no gross injury noted to any intra-abdominal structures. After which working trocars were placed under direct visualization. A 12 mm trocar was placed in left mid abdomen, and a 5 mm trocar was inserted in the suprapubic area. The patient was placed in slight Trendelenburg position and tilted towards her left side. The cecum was identified and mobilized, as well as the terminal ileum. The appendix was noted to be dilated at the distal two thirds with signs of gangrenous changes that were transmural and perforation, with a small amount of feces visible at the perforation of the appendix. The base of the appendix was still relatively normal. The mesoappendix was transected with the LigaSure. The appendix was then taken at its base with a white load on a laparoscopic stapler. The staple line was inspected and found to be hemostatically sound and secure. The right lower quadrant pelvis was irrigated with a moderate amount of saline and aspirated much as possible. Due to the perforation a 19 Romansh round drain was placed in the right lower quadrant pelvic area and exited out of the supraumbilical port. The appendix was placed in Endo Catch bag. It was then retrieved via the 12 mm trocar. The fascia was then closed using a 0- vircryl and a suture passer device. Trocars removed under direct visualization. The insufflation was then terminated. The skin incisions were closed using 4-0 Monocryl sutures. The drain was secured with a 2-0 nylon. All the wounds dressed with dermabond. The patient tolerated the procedure well, was extubated and taken to the recovery room in satisfactory condition. Specimen: appendix Complications: none immediate EBl: minimal Findings: Gangrenous perforated appendicitis
[2021-06-08] MEDS: PIPERACIL/TAZOBACTA 4.5/NS 100 4.5 GM/100 ML VIAL IV SCH ×2 (10:04→17:35)
--- NOTE | 2021-06-08 11:14 | Post Anesthesia Evaluation ---
- Post Anesthesia Evaluation Patient Participated: Yes Airway Patent: Yes Stable Respiratory Function: Yes Nausea/Vomiting: No Temp > 96.8F: Yes Pain Manageable: Yes Adequeate Hydration: Yes Anesthesia Complications: No
[2021-06-08] MEDS ORDERED: NEOSTIGMINE 10MG/10 ML INJ MDV ONE (11:30)
[2021-06-08] MEDS ORDERED: GLYCOPYRROLATE 0.4 MG/2 ML INJ ONE (11:30)
[2021-06-08] MEDS ORDERED: PHENYLEPHRINE/NS 1,000 MCG/10 ML SYRINGE (OR USE) IV ONE (11:30)
[2021-06-08] MEDS: HYDROmorphone 1 MG/1 ML INJ IV PRN (11:36)
[2021-06-08] MEDS: FAMOTIDINE 20 MG/2 ML INJ IV SCH ×2 (11:40→21:30)
[2021-06-08] MEDS ORDERED: HEPARIN 5,000 UNIT/1 ML VIAL ONE (11:44)
--- NOTE | 2021-06-08 11:59 | Electrocardiograph Report ---
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
[2021-06-08] MEDS ORDERED: oxyCODONE /ACETAMINOPHEN 5-325MG TAB PO PRN (13:26)
[2021-06-08] MEDS: INSULIN LISPRO 100 UNIT/ML SUB-Q SCH ×2 (13:28→18:34)
[2021-06-08] MEDS: KETOROLAC 30 MG/1 ML INJ IV SCH (14:31)
[2021-06-08] MEDS: LACTATED RINGERS 1,000 ML IV SCH (21:02)
[2021-06-08] MEDS ORDERED: CLOZAPINE 100 MG PO SCH (22:00)
[2021-06-08] MEDS ORDERED: metFORMIN 500 MG TAB PO SCH (22:00)
[2021-06-09] MEDS: PIPERACIL/TAZOBACTA 4.5/NS 100 4.5 GM/100 ML VIAL IV SCH ×3 (01:11→18:03)
[2021-06-09] MEDS: KETOROLAC 30 MG/1 ML INJ IV SCH ×4 (01:12→21:58)
[2021-06-09] MEDS: INSULIN LISPRO 100 UNIT/ML SUB-Q SCH ×5 (01:24→23:10)
[2021-06-09 08:07] LABS: Hematocrit 32.3 % (35.5-45.6); Hemoglobin 10.9 gm/dl (11.8-15.2); Mean Corpuscular HGB Conc 34 % (32-34); Mean Corpuscular Volume 74 fl (84-94); Platelet Count 173 K/mm3 (140-440); Red Blood Count 4.36 M/mm3 (3.65-5.03); Red Cell Distribution Width 15.2 % (13.2-15.2)
[2021-06-09 09:01] LABS: Alanine Aminotransferase 45 units/L (7-56); Albumin 3.7 g/dL (3.9-5); BUN/Creatinine Ratio 17; Blood Urea Nitrogen 20 mg/dL (9-20); Calcium 8.4 mg/dL (8.4-10.2); Hemolysis Index 16
--- NOTE | 2021-06-09 09:59 | Progress Note ---
Assessment and Plan Assessment and plan: 51-year-old male with a history of diabetes and hypertension schizophrenia admitted to the emergency room with a 3 to 4-day of abdominal pain. Pain localized to the right lower quadrant and supra pubic area. Patient had some fever with nausea but no vomiting. Patient had a CT scan that showed appendi citis with a small amount of focal free air suggestive of a contained perforation. The patient was admitted with diagnosis of sepsis, acute appendicitis, right kidney mass, diabetes mellitus type 2, bipolar disorder, schizophrenia, hypertension. The patient was seen by surgery and underwent laparoscopic appendectomy for a gangrenous perforated acute appendicitis. The patient also has urology consultation for the incidental findings suggestive of RCC. Gangrenous perforated acute appendicitis s/p laparoscopic appendectomy Sepsis. Patient meets criteria given the leukocytosis, tachycardia and diagnosis of appendicitis. Diabetes mellitus type 2 Bipolar disorder Schizophrenia Hypertension 06/09/2021. Continue IV antibiotics for now. Surgery following. Follow-up blood cultures. Continue SSRI, Glucophage and Accu-Cheks. Tight glycemic control. Advance diet as tolerated. Urology consultation pending. [facility] for BP History Interval history: No new issues overnight. Hospitalist Physical - Constitutional Vitals: Temp Pulse Resp BP Pulse Ox 98.0 F 54 L 17 124/75 97 06/09/21 05:33 06/09/21 05:33 06/09/21 07:08 06/09/21 05:33 06/09/21 05:33 General appearance: Present: no acute distress, well-nourished - EENT Eyes: Present: PERRL, EOM intact ENT: hearing intact, clear oral mucosa, dentition normal - Neck Neck: Present: supple, normal ROM - Respiratory Respiratory effort: normal Respiratory: bilateral: CTA - Cardiovascular Rhythm: regular Heart Sounds: Present: S1 & S2. Absent: gallop, rub - Extremities Extremities: no ischemia, No edema, Full ROM - Abdominal General gastrointestinal: soft, non-tender, non-distended, normal bowel sounds - Integumentary Integumentary: Present: clear, warm, dry - Neurologic Neurologic: CNII-XII intact, moves all extremities Results - Labs CBC & Chem 7: 06/09/21 06:32 06/09/21 06:32 Labs: Laboratory Last Values WBC 10.5 K/mm3 (4.5-11.0) 06/09/21 06:32 RBC 4.36 M/mm3 (3.65-5.03) 06/09/21 06:32 Hgb 10.9 gm/dl (11.8-15.2) L 06/09/21 06:32 Hct 32.3 % (35.5-45.6) L D 06/09/21 06:32 MCV 74 fl (84-94) L 06/09/21 06:32 MCH 25 pg (28-32) L 06/09/21 06:32 MCHC 34 % (32-34) 06/09/21 06:32 RDW 15.2 % (13.2-15.2) 06/09/21 06:32 Plt Count 173 K/mm3 (140-440) 06/09/21 06:32 Add Manual Diff Complete 06/07/21 23:34 Total Counted 100 06/07/21 23:34 Seg Neutrophils % [employer] 06/09/21 06:32 Seg Neuts % (Manual) 89.0 % (40.0-70.0) H 06/07/21 23:34 Lymphocytes % (Manual) 7.0 % (13.4-35.0) L 06/07/21 23:34 Monocytes % (Manual) 4.0 % (0.0-7.3) 06/07/21 23:34 Nucleated RBC % Not Reportable 06/07/21 23:34 Seg Neutrophils # Man 9.9 K/mm3 (1.8-7.7) H 06/07/21 23:34 Band Neutrophils # 0.0 K/mm3 06/07/21 23:34 Lymphocytes # (Manual) 0.8 K/mm3 (1.2-5.4) L 06/07/21 23:34 Abs React Lymphs (Man) 0.0 K/mm3 06/07/21 23:34 Monocytes # (Manual) 0.4 K/mm3 (0.0-0.8) 06/07/21 23:34 Eosinophils # (Manual) 0.0 K/mm3 (0.0-0.4) 06/07/21 23:34 Basophils # (Manual) 0.0 K/mm3 (0.0-0.1) 06/07/21 23:34 Metamyelocytes # 0.0 K/mm3 06/07/21 23:34 Myelocytes # 0.0 K/mm3 06/07/21 23:34 Promyelocytes # 0.0 K/mm3 06/07/21 23:34 Blast Cells # 0.0 K/mm3 06/07/21 23:34 WBC Morphology Not Reportable 06/07/21 23:34 Hypersegmented Neuts Not Reportable 06/07/21 23:34 Hyposegmented Neuts Not Reportable 06/07/21 23:34 Hypogranular Neuts Not Reportable 06/07/21 23:34 Smudge Cells Not Reportable 06/07/21 23:34 Toxic Granulation Not Reportable 06/07/21 23:34 Toxic Vacuolation Not Reportable 06/07/21 23:34 Dohle Bodies Not Reportable 06/07/21 23:34 Pelger-Huet Anomaly Not Reportable 06/07/21 23:34 Mellissa Rods Not Reportable 06/07/21 23:34 Platelet Estimate Not Reportable 06/07/21 23:34 Clumped Platelets Not Reportable 06/07/21 23:34 Plt Clumps, EDTA Not Reportable 06/07/21 23:34 Large Platelets Not Reportable 06/07/21 23:34 Giant Platelets Not Reportable 06/07/21 23:34 Platelet Satelliting Not Reportable 06/07/21 23:34 Plt Morphology Comment Not Reportable 06/07/21 23:34 RBC Morphology Not Reportable 06/07/21 23:34 Dimorphic RBCs Not Reportable 06/07/21 23:34 Polychromasia Not Reportable 06/07/21 23:34 Hypochromasia 1+ 06/07/21 23:34 Poikilocytosis Not Reportable 06/07/21 23:34 Anisocytosis Rare 06/07/21 23:34 Microcytosis Not Reportable 06/07/21 23:34 Macrocytosis Not Reportable 06/07/21 23:34 Spherocytes Not Reportable 06/07/21 23:34 Pappenheimer Bodies Not Reportable 06/07/21 23:34 Sickle Cells Not Reportable 06/07/21 23:34 Target Cells Not Reportable 06/07/21 23:34 Tear Drop Cells Not Reportable 06/07/21 23:34 Ovalocytes Not Reportable 06/07/21 23:34 Helmet Cells Not Reportable 06/07/21 23:34 Kay-Flagler Bodies Not Reportable 06/07/21 23:34 [place] Rings Not Reportable 06/07/21 23:34 Anand Cells Not Reportable 06/07/21 23:34 Bite Cells Not Reportable 06/07/21 23:34 Crenated Cell Not Reportable 06/07/21 23:34 Elliptocytes Not Reportable 06/07/21 23:34 Acanthocytes (Spur) Not Reportable 06/07/21 23:34 Rouleaux Not Reportable 06/07/21 23:34 Hemoglobin C Crystals Not Reportable 06/07/21 23:34 Schistocytes Not Reportable 06/07/21 23:34 Malaria parasites Not Reportable 06/07/21 23:34 Carrillo Bodies Not Reportable 06/07/21 23:34 Hem Pathologist Commnt No 06/07/21 23:34 Sodium 136 mmol/L (137-145) L 06/09/21 06:32 Potassium 3.9 mmol/L (3.6-5.0) 06/09/21 06:32 Chloride 101.6 mmol/L (98-107) 06/09/21 06:32 Carbon Dioxide 24 mmol/L (22-30) 06/09/21 06:32 Anion Gap 14 mmol/L 06/09/21 06:32 BUN 20 mg/dL (9-20) 06/09/21 06:32 Creatinine 1.2 mg/dL (0.8-1.3) 06/09/21 06:32 Estimated GFR > 60 ml/min 06/09/21 06:32 BUN/Creatinine Ratio 17 % 06/09/21 06:32 Glucose 166 mg/dL (75-100) H 06/09/21 06:32 POC Glucose 163 mg/dL (70-105) H 06/09/21 06:29 Hemoglobin A1c 5.9 % (4-6) 06/07/21 23:34 Calcium 8.4 mg/dL (8.4-10.2) 06/09/21 06:32 Total Bilirubin 0.40 mg/dL (0.1-1.2) 06/09/21 06:32 Direct Bilirubin 0.3 mg/dL (0-0.2) H 06/07/21 23:34 Indirect Bilirubin 0.6 mg/dL 06/07/21 23:34 AST 35 units/L (5-40) 06/09/21 06:32 ALT 45 units/L (7-56) 06/09/21 06:32 Alkaline Phosphatase 105 units/L (35-129) 06/09/21 06:32 Total Protein 6.7 g/dL (6.3-8.2) 06/09/21 06:32 Albumin 3.7 g/dL (3.9-5) L 06/09/21 06:32 Albumin/Globulin Ratio 1.2 % 06/09/21 06:32 Lipase 32 units/L (13-60) 06/07/21 23:34 Microbiology: Microbiology 06/08/21 01:33 Peripheral/Venous Blood Culture - Preliminary NO GROWTH AFTER 24 HOURS 06/08/21 01:56 Peripheral/Venous Blood Culture - Preliminary NO GROWTH AFTER 24 HOURS Arzola/IV: Voiding Method Urinal Active Medications - Current Medications Current Medications: Generic Name Dose Route Start Last Admin Trade Name Freq PRN Reason Stop Dose Admin Acetaminophen 650 mg 06/08/21 02:20 Acetaminophen 650 Mg Rect Supp MA Q4H PRN Pain MILD(1-3)/Fever >100.5/SALINAS Amlodipine Besylate 5 mg 06/09/21 10:00 Amlodipine 5 Mg Tab PO DAILY KATERINA Dextrose 50 ml 06/08/21 02:20 Dextrose 50% In Water (25gm) 50 Ml Syringe IV Q30MIN PRN Hypoglycemia Protocol Famotidine 20 mg 06/09/21 22:00 Famotidine 20 Mg Tab PO BID KATERINA Famotidine 20 mg 06/09/21 10:00 Famotidine 20 Mg/2 Ml Inj IV 06/09/21 13:59 BID KATERINA Fluoxetine HCl 20 mg 06/09/21 10:00 Fluoxetine 20 Mg Cap PO QDAY KATERINA Heparin Sodium (Porcine) 5,000 unit 06/09/21 10:00 Heparin 5,000 Unit/1 Ml Vial SUB-Q Q12HR KATERINA Hydralazine HCl 5 mg 06/08/21 02:25 Hydralazine 20 Mg/1 Ml Inj IV Q4HR PRN Blood Pressure Hydromorphone HCl 0.5 mg 06/08/21 02:20 06/08/21 11:36 Hydromorphone 1 Mg/1 Ml Inj IV 0.5 mg Q3H PRN Administration Pain , Severe (7-10) Piperacillin Sod/Tazobactam Sod 4.5 gm in 100 mls @ 200 mls/hr 06/08/21 10:00 06/09/21 01:11 Zosyn/Ns 4.5gm/100ml IV 200 mls/hr Q8H KATERINA Administration Protocol Lactated Ringer's 1,000 mls @ 100 mls/hr 06/08/21 05:30 06/08/21 21:02 Lactated Ringers IV 100 mls/hr DIRECT KATERINA Administration Insulin Human Lispro 0 unit 06/08/21 06:00 06/09/21 06:38 Insulin Lispro 100 Unit/Ml SUB-Q 1 unit Q6HR KATERINA Administration Protocol Ketorolac Tromethamine 30 mg 06/08/21 14:00 06/09/21 06:38 Ketorolac 30 Mg/1 Ml Inj IV 06/13/21 13:59 30 mg Q8HR KATERINA Administration Metformin HCl 500 mg 06/09/21 08:30 Metformin 500 Mg Tab PO BIDDIAB KATERINA Morphine Sulfate 2 mg 06/08/21 02:20 Morphine 2 Mg/1 Ml Inj IV Q4H PRN Pain, Moderate (4-6) Naloxone HCl 0.1 mg 06/08/21 02:20 Naloxone 0.4 Mg/1 Ml Inj IV Q2MIN PRN Res Rate </= 8 or 02 SAT < 92% Ondansetron HCl 4 mg 06/08/21 02:20 Ondansetron 4 Mg/2 Ml Inj IV Q6H PRN Nausea And Vomiting Oxycodone/Acetaminophen 2 tab 06/08/21 13:26 06/08/21 19:20 Oxycodone /Acetaminophen 5-325mg Tab PO 2 tab Q6H PRN Administration Pain, Moderate (4-6) Pneumococcal Polyvalent Vaccine 0.5 ml 06/09/21 12:00 Pneumococcal 23 Valent 0.5 Ml Vial IM 06/09/21 12:01 .ONCE ONE Sodium Chloride 10 ml 06/08/21 10:00 06/08/21 23:55 Sodium Chloride 0.9% 10 Ml Flush Syringe IV 10 ml BID KATERINA Administration Sodium Chloride 10 ml 06/08/21 02:20 Sodium Chloride 0.9% 10 Ml Flush Syringe IV PRN PRN LINE FLUSH
[2021-06-09] MEDS ORDERED: FAMOTIDINE 20 MG/2 ML INJ IV SCH (10:00)
[2021-06-09] MEDS ORDERED: CLOZAPINE 100 MG PO SCH (10:00)
[2021-06-09 10:08] LABS: Band Neutrophils # (Manual) 1.5 K/mm3; Total Cells Counted 100
[2021-06-09 10:09] LABS: Anisocytosis RARE; Hypochromasia 1+
[2021-06-09 10:10] LABS: Platelet Estimate Consistent w Auto
[2021-06-09] MEDS: LACTATED RINGERS 1,000 ML IV SCH ×2 (10:41→22:00)
[2021-06-09] MEDS: HEPARIN 5,000 UNIT/1 ML VIAL SUB-Q SCH ×2 (10:49→21:58)
[2021-06-09] MEDS: FLUoxetine 20 MG CAP PO SCH (10:50)
[2021-06-09] MEDS: metFORMIN 500 MG TAB PO SCH ×2 (10:50→18:10)
[2021-06-09] MEDS: amLODIPine 5 MG TAB PO SCH (10:50)
[2021-06-09] MEDS ORDERED: FLU VACC QUAD 2021-22(6MOS UP)/PF 60 MCG/0.5 ML SYRINGE IM ONE (12:00)
[2021-06-09] MEDS ORDERED: PNEUMOCOCCAL 23 Valent 0.5 ML VIAL IM ONE (12:00)
--- NOTE | 2021-06-09 13:15 | Progress Note ---
Assessment and Plan POD#1 s/p lap appy for perforated appendicitis. Afebrile and stable. Patient has an incidental finding of a renal mass seen on CT scan that was read as possible renal cell carcinoma. Recommended that patient get urology consult prior to discharge. Pending their recommendations patient can be discharged to home and advance diet as tolerated. Plan to take drain out prior to discharge. Subjective Date of service: 06/09/21 Narrative: No acute events overnight. Pt says he is feeling better compared to before surgery but has some some discomfort on the left side under one of his incisions. He denies n/v. Objective Vital Signs - 12hr 06/09/21 06/09/21 06/09/21 01:12 01:42 05:33 Temperature 98.0 F Pulse Rate 54 L Respiratory 17 17 16 Rate Blood Pressure 124/75 O2 Sat by Pulse 97 Oximetry 06/09/21 06/09/21 07:08 10:50 Temperature Pulse Rate 63 Respiratory 17 Rate Blood Pressure 120/80 O2 Sat by Pulse Oximetry - General physical appearance well developed, no distress, moderate pain, obese - Respiratory normal expansion, normal respiratory effort - Abdomen other (incisions c/d/i, approporiately tender to palpation) - Labs 06/09/21 06:32 06/09/21 06:32 Diabetes panel 06/09/21 Range/Units 06:32 Sodium 136 L (137-145) mmol/L Potassium 3.9 (3.6-5.0) mmol/L Chloride 101.6 (98-107) mmol/L Carbon Dioxide 24 (22-30) mmol/L BUN 20 (9-20) mg/dL Creatinine 1.2 (0.8-1.3) mg/dL Glucose 166 H (75-100) mg/dL Calcium 8.4 (8.4-10.2) mg/dL AST 35 (5-40) units/L ALT 45 (7-56) units/L Alkaline Phosphatase 105 (35-129) units/L Total Protein 6.7 (6.3-8.2) g/dL Albumin 3.7 L (3.9-5) g/dL Calcium panel 06/09/21 Range/Units 06:32 Calcium 8.4 (8.4-10.2) mg/dL Albumin 3.7 L (3.9-5) g/dL Pituitary panel 06/09/21 Range/Units 06:32 Sodium 136 L (137-145) mmol/L Potassium 3.9 (3.6-5.0) mmol/L Chloride 101.6 (98-107) mmol/L Carbon Dioxide 24 (22-30) mmol/L BUN 20 (9-20) mg/dL Creatinine 1.2 (0.8-1.3) mg/dL Glucose 166 H (75-100) mg/dL Calcium 8.4 (8.4-10.2) mg/dL Adrenal panel 06/09/21 Range/Units 06:32 Sodium 136 L (137-145) mmol/L Potassium 3.9 (3.6-5.0) mmol/L Chloride 101.6 (98-107) mmol/L Carbon Dioxide 24 (22-30) mmol/L BUN 20 (9-20) mg/dL Creatinine 1.2 (0.8-1.3) mg/dL Glucose 166 H (75-100) mg/dL Calcium 8.4 (8.4-10.2) mg/dL Total Bilirubin 0.40 (0.1-1.2) mg/dL AST 35 (5-40) units/L ALT 45 (7-56) units/L Alkaline Phosphatase 105 (35-129) units/L Total Protein 6.7 (6.3-8.2) g/dL Albumin 3.7 L (3.9-5) g/dL
--- NOTE | 2021-06-09 13:23 | Consultation ---
History of Present Illness - Reason for Consult Consult date: 06/09/21 - History of Present Illness new pt 51-year-old male with history of diabetes and hypertension presents emergency room with 3 to 4-day history of abdominal pain. CT scan showed an inflamed appendix with small amount of surrounding free air suggestive of contained perforation. Patient was consented for urgent laparoscopic appendectomy of which expressed understanding risk and benefits. 06/08/2021 - Suri Garcia MD Laparoscopic Appendectomy - gangrenous perforated acute appendicitis CTalso revealed 4cm rt lower pole right kidney mass exam--soft / s/p appy rt renal masss info given---informed nurse to provide CT disk---pt needs eval by Dr. Hong Mejia in our [place] office for options: ---obs, crytherapy, open vs robotic--- radical or partial nephrectomy diabetes mellitus type 2, bipolar disorder, schizophrenia, hypertension ok to vt home from gu standpoint Past History Past Medical History: diabetes (Type II), hypertension, other (Schizophrenia, bipolar disorder, obesity) Past Surgical History: Other (Orchidectomy (childhood surgery)) Social history: single, lives with family (Sister and niece), full code. denies: smoking, alcohol abuse, prescription drug abuse Family history: hypertension Medications and Allergies Allergies Allergy/AdvReac Type Severity Reaction Status Date / Time No Known Allergies Allergy Verified 06/07/21 22:55 Home Medications Medication Instructions Recorded Confirmed Last Taken Type amLODIPine [Norvasc] 5 mg PO DAILY 01/09/14 06/08/21 01/09/14 History cloZAPine (NF) 600 mg PO QHS 01/09/14 06/08/21 01/08/14 History cloZAPine (NF) [Clozapine] 200 mg PO QAM 01/09/14 06/08/21 06/07/21 History FLUoxetine [PROzac] 20 mg PO QDAY #14 capsule 03/09/16 06/08/21 06/07/21 Rx metFORMIN [Glucophage] 500 mg PO BID #60 12/30/20 06/08/21 Unknown Rx Active Meds: Active Medications Acetaminophen (Acetaminophen 650 Mg Rect Supp) 650 mg SC Q4H PRN PRN Reason: Pain MILD(1-3)/Fever >100.5/SALINAS Amlodipine Besylate (Amlodipine 5 Mg Tab) 5 mg PO DAILY KATERINA Last Admin: 06/09/21 10:50 Dose: 5 mg Documented by: Dextrose (Dextrose 50% In Water (25gm) 50 Ml Syringe) 50 ml IV Q30MIN PRN; Protocol PRN Reason: Hypoglycemia Famotidine (Famotidine 20 Mg Tab) 20 mg PO BID [facility] Famotidine (Famotidine 20 Mg/2 Ml Inj) 20 mg IV BID [facility] Stop: 06/09/21 13:59 Last Admin: 06/09/21 10:51 Dose: 20 mg Documented by: Fluoxetine HCl (Fluoxetine 20 Mg Cap) 20 mg PO QDAY [facility] Last Admin: 06/09/21 10:50 Dose: 20 mg Documented by: Heparin Sodium (Porcine) (Heparin 5,000 Unit/1 Ml Vial) 5,000 unit SUB-Q Q12HR [facility] Last Admin: 06/09/21 10:49 Dose: 5,000 unit Documented by: Hydralazine HCl (Hydralazine 20 Mg/1 Ml Inj) 5 mg IV Q4HR PRN PRN Reason: Blood Pressure Hydromorphone HCl (Hydromorphone 1 Mg/1 Ml Inj) 0.5 mg IV Q3H PRN PRN Reason: Pain , Severe (7-10) Last Admin: 06/08/21 11:36 Dose: 0.5 mg Documented by: Piperacillin Sod/Tazobactam Sod (Zosyn/Ns 4.5gm/100ml) 4.5 gm in 100 mls @ 200 mls/hr IV Q8H [facility]; Protocol Last Admin: 06/09/21 10:43 Dose: 200 mls/hr Documented by: Lactated Ringer's (Lactated Ringers) 1,000 mls @ 100 mls/hr IV DIRECT [facility] Last Admin: 06/09/21 10:41 Dose: 100 mls/hr Documented by: Insulin Human Lispro (Insulin Lispro 100 Unit/Ml) 0 unit SUB-Q Q6HR [facility]; Protocol Last Admin: 06/09/21 06:38 Dose: 1 unit Documented by: Ketorolac Tromethamine (Ketorolac 30 Mg/1 Ml Inj) 30 mg IV Q8HR [facility] Stop: 06/13/21 13:59 Last Admin: 06/09/21 06:38 Dose: 30 mg Documented by: Metformin HCl (Metformin 500 Mg Tab) 500 mg PO BIDDIAB [facility] Last Admin: 06/09/21 10:50 Dose: 500 mg Documented by: Morphine Sulfate (Morphine 2 Mg/1 Ml Inj) 2 mg IV Q4H PRN PRN Reason: Pain, Moderate (4-6) Naloxone HCl (Naloxone 0.4 Mg/1 Ml Inj) 0.1 mg IV Q2MIN PRN PRN Reason: Res Rate </= 8 or 02 SAT < 92% Ondansetron HCl (Ondansetron 4 Mg/2 Ml Inj) 4 mg IV Q6H PRN PRN Reason: Nausea And Vomiting Oxycodone/Acetaminophen (Oxycodone /Acetaminophen 5-325mg Tab) 2 tab PO Q6H PRN PRN Reason: Pain, Moderate (4-6) Last Admin: 06/08/21 19:20 Dose: 2 tab Documented by: Sodium Chloride (Sodium Chloride 0.9% 10 Ml Flush Syringe) 10 ml IV BID [facility] Last Admin: 06/09/21 10:38 Dose: 10 ml Documented by: Sodium Chloride (Sodium Chloride 0.9% 10 Ml Flush Syringe) 10 ml IV PRN PRN PRN Reason: LINE FLUSH Exam - Constitutional Vitals: Temp Pulse Resp BP Pulse Ox 98.1 F 67 18 108/71 95 06/09/21 12:14 06/09/21 12:14 06/09/21 12:14 06/09/21 12:14 06/09/21 12:14 Results - Labs CBC & Chem 7: 06/09/21 06:32 06/09/21 06:32 Labs: Abnormal lab results 06/08/21 06/09/21 06/09/21 Range/Units 17:57 01:10 06:29 Hgb (11.8-15.2) gm/dl Hct (35.5-45.6) % MCV (84-94) fl MCH (28-32) pg Seg Neuts % (Manual) (40.0-70.0) % Lymphocytes % (Manual) (13.4-35.0) % Seg Neutrophils # Man (1.8-7.7) K/mm3 Lymphocytes # (Manual) (1.2-5.4) K/mm3 Sodium (137-145) mmol/L Glucose (75-100) mg/dL POC Glucose 204 H 168 H 163 H (70-105) mg/dL Albumin (3.9-5) g/dL 06/09/21 06/09/21 06/09/21 Range/Units 06:32 06:32 10:38 Hgb 10.9 L (11.8-15.2) gm/dl Hct 32.3 L D (35.5-45.6) % MCV 74 L (84-94) fl MCH 25 L (28-32) pg Seg Neuts % (Manual) 81.0 H (40.0-70.0) % Lymphocytes % (Manual) 3.0 L (13.4-35.0) % Seg Neutrophils # Man 8.5 H (1.8-7.7) K/mm3 Lymphocytes # (Manual) 0.3 L (1.2-5.4) K/mm3 Sodium 136 L (137-145) mmol/L Glucose 166 H (75-100) mg/dL POC Glucose 160 H (70-105) mg/dL Albumin 3.7 L (3.9-5) g/dL
--- NOTE | 2021-06-09 14:39 | Event Note ---
Date: 06/09/21 Urology saw patient and recommended outpatient follow up for renal mass. I was going to remove drain but looks a little murky. Due to the fact that his his appendix was grossly perforated and he has a higher chance of getting post op abscess, would like to leave the drain in. Pt can be discharged from [facility] perspective. Recommend additional 5 days of abx. Pt has an appointment with me in the office on to have the drain removed.
[2021-06-09] MEDS: FAMOTIDINE 20 MG TAB PO SCH (21:58)
[2021-06-09] MEDS: ONDANSETRON 4 MG/2 ML INJ IV PRN (21:58)
[2021-06-09] MEDS ORDERED: LACTULOSE 20 GM/30 ML ORAL LIQD PO ONE (22:49)
[2021-06-10] MEDS: PIPERACIL/TAZOBACTA 4.5/NS 100 4.5 GM/100 ML VIAL IV SCH ×3 (01:54→17:53)
[2021-06-10] MEDS ORDERED: ONDANSETRON 4 MG/2 ML INJ IV ONE (01:58)
[2021-06-10] MEDS ORDERED: hydrALAZINE 20 MG/1 ML INJ IV PRN (02:00)
[2021-06-10] MEDS: KETOROLAC 30 MG/1 ML INJ IV SCH ×3 (05:57→21:32)
[2021-06-10] MEDS: INSULIN LISPRO 100 UNIT/ML SUB-Q SCH ×4 (05:57→23:00)
[2021-06-10] MEDS: ONDANSETRON 4 MG/2 ML INJ IV PRN ×3 (05:57→21:33)
--- NOTE | 2021-06-10 08:14 | Discharge Summary ---
Providers - Providers Date of Admission: 06/08/21 01:48 Date of discharge: 06/11/21 Attending physician: ROLANDO DURHAM 06/08/21 04:04 Consult to Physician [CONS] Stat Comment: Consulting Provider: PEPE MCCOY Physician Instructions: Reason For Exam: Acute appendicitis Primary care physician: [facility] [facility] Hospitalization Reason for admission: Acute appendicitis Condition: Stable Hospital course: 51-year-old male with a history of diabetes and hypertension schizophrenia admitted to the emergency room with a 3 to 4-day of abdominal pain. Pain localized to the right lower quadrant and supra pubic area. Patient had some fever with nausea but no vomiting. Patient had a CT scan that showed appendicitis with a small amount of focal free air suggestive of a contained perforation. The patient was admitted with diagnosis of sepsis, acute appendicitis, right kidney mass, diabetes mellitus type 2, bipolar disorder, schizophrenia, hypertension. The patient was seen by surgery and underwent laparoscopic appendectomy for a gangrenous perforated acute appendicitis. The patient also has urology consultation for the incidental findings suggestive of RCC. The patient was seen by urology who recommended evaluation by Dr. Jg Parks in our [place] office for options:---obs, crytherapy, open vs robotic--- radical or partial nephrectomy. Urology felt patient could discharge with the above recommendation. With regards to the appendicitis, surgery opted not to remove drain because still had what appeared to be purulent/murkiness. Due to the fact that his his appendix was grossly perforated and he has a higher chance of getting post op abscess, surgery will leave the drain in and follow- up as an outpatient. Patient will receive 5 days of antibiotics for discharge. Dedicated discharge time 35 minutes. Disposition: 30 STILL A PATIENT Final Discharge Diagnosis (Prints w/discharge instructions): sepsis, gangrenous perforated acute appendicitis, right kidney mass, diabetes mellitus type 2, bipolar disorder, schizophrenia, hypertension, probable renal cell carcinoma. Core Measure Documentation - Palliative Care Palliative Care/ Comfort Measures: Not Applicable - Core Measures Any of the following diagnoses?: none Exam - Constitutional Vitals: Temp Pulse Resp BP Pulse Ox 97.8 F 67 16 130/90 96 06/09/21 21:40 06/09/21 21:40 06/09/21 21:40 06/10/21 05:45 06/09/21 21:40 General appearance: Present: no acute distress, well-nourished - EENT Eyes: Present: PERRL ENT: hearing intact, clear oral mucosa - Neck Neck: Present: supple, normal ROM - Respiratory Respiratory effort: normal Respiratory: bilateral: CTA - Cardiovascular Heart Sounds: Present: S1 & S2. Absent: rub, click - Extremities Extremities: pulses symmetrical, No edema Peripheral Pulses: within normal limits - Abdominal General gastrointestinal: Present: soft, non-tender, non-distended, normal bowel sounds Male genitourinary: Present: normal - Integumentary Integumentary: Present: clear, warm, dry - Musculoskeletal Musculoskeletal: gait normal, strength equal bilaterally - Psychiatric Psychiatric: appropriate mood/affect, intact judgment & insight - Neurologic Neurologic: CNII-XII intact, moves all extremities Plan Activity: advance as tolerated Weight Bearing Status: Weight Bear as Tolerated Diet: regular Wound: keep clean and dry, per your surgeon's advice, drain care as instructed Additional Instructions: Follow-up with urology in [place] for renal mass. Follow-up with general surgery for drain removal. Follow up with: PRIMARY CARE, [Primary Care Provider] - 3-5 Days JG PARKS MD [Staff Physician] - 7 Days PEPE MCCOY MD [Staff Physician] - 7 Days Prescriptions: amLODIPine 5 mg PO DAILY #30 Amoxicillin/Potassium Clav [Augmentin 875-125 Tablet] 1 each PO BID #10 tablet metFORMIN [Glucophage] 500 mg PO BID #60 oxyCODONE /ACETAMINOPHEN [Percocet 5/325 mg] 1 tab PO Q6H PRN #10 tablet PRN Reason: Pain, Moderate (4-6) FLUoxetine [PROzac] 20 mg PO QDAY #14 capsule
[2021-06-10] MEDS: FAMOTIDINE 20 MG TAB PO SCH ×3 (08:44→21:34)
[2021-06-10] MEDS ORDERED: METOCLOPRAMIDE 10 MG/2 ML INJ IV ONE (09:05)
--- NOTE | 2021-06-10 09:21 | Progress Note ---
Assessment and Plan Assessment and plan: 51-year-old male with a history of diabetes and hypertension schizophrenia admitted to the emergency room with a 3 to 4-day of abdominal pain. Pain localized to the right lower quadrant and supra pubic area. Patient had some fever with nausea but no vomiting. Patient had a CT scan that showed appendi citis with a small amount of focal free air suggestive of a contained perforation. The patient was admitted with diagnosis of sepsis, acute appendicitis, right kidney mass, diabetes mellitus type 2, bipolar disorder, schizophrenia, hypertension. The patient was seen by surgery and underwent laparoscopic appendectomy for a gangrenous perforated acute appendicitis. The patient also has urology consultation for the incidental findings suggestive of RCC. Gangrenous perforated acute appendicitis s/p laparoscopic appendectomy Sepsis. Patient meets criteria given the leukocytosis, tachycardia and diagnosis of appendicitis. Renal mass likely secondary to renal cell carcinoma Diabetes mellitus type 2 Bipolar disorder Schizophrenia Hypertension 06/09/2021. Continue IV antibiotics for now. Surgery following. Follow-up blood cultures. Continue SSRI, Glucophage and Accu-Cheks. Tight glycemic control. Advance diet as tolerated. Urology consultation pending. Norvas for BP 06/10/2021. Patient with episode of nausea and vomiting this morning. Continue Zofran as needed and add Reglan 10 mg IV every 6 hours. Blood cultures with no growth to date x2 days. Consider discharge today if nausea and vomiting resolves. If vomiting does not improve, check KUB to rule out ileus. History Interval history: No new issues overnight. Hospitalist Physical - Constitutional Vitals: Temp Pulse Resp BP Pulse Ox 97.8 F 67 16 130/90 96 06/09/21 21:40 06/09/21 21:40 06/09/21 21:40 06/10/21 05:45 06/09/21 21:40 General appearance: Present: no acute distress, well-nourished - EENT Eyes: Present: PERRL, EOM intact ENT: hearing intact, clear oral mucosa, dentition normal - Neck Neck: Present: supple, normal ROM - Respiratory Respiratory effort: normal Respiratory: bilateral: CTA - Cardiovascular Rhythm: regular Heart Sounds: Present: S1 & S2. Absent: gallop, rub - Extremities Extremities: no ischemia, No edema, Full ROM - Abdominal General gastrointestinal: soft, non-tender, non-distended, normal bowel sounds - Integumentary Integumentary: Present: clear, warm, dry - Neurologic Neurologic: CNII-XII intact, moves all extremities Results - Labs CBC & Chem 7: 06/09/21 06:32 11 06:32 Labs: Laboratory Last Values WBC 10.5 K/mm3 (4.5-11.0) 06/09/21 06:32 RBC 4.36 M/mm3 (3.65-5.03) 06/09/21 06:32 Hgb 10.9 gm/dl (11.8-15.2) L 06/09/21 06:32 Hct 32.3 % (35.5-45.6) L D 06/09/21 06:32 MCV 74 fl (84-94) L 06/09/21 06:32 MCH 25 pg (28-32) L 06/09/21 06:32 MCHC 34 % (32-34) 06/09/21 06:32 RDW 15.2 % (13.2-15.2) 06/09/21 06:32 Plt Count 173 K/mm3 (140-440) 06/09/21 06:32 Add Manual Diff Complete 06/09/21 06:32 Total Counted 100 06/09/21 06:32 Seg Neutrophils % Tile Picker 06/09/21 06:32 Seg Neuts % (Manual) 81.0 % (40.0-70.0) H 06/09/21 06:32 Band Neutrophils % 14.0 % 06/09/21 06:32 Lymphocytes % (Manual) 3.0 % (13.4-35.0) L 06/09/21 06:32 Reactive Lymphs % (Man) 1.0 % 06/09/21 06:32 Monocytes % (Manual) 1.0 % (0.0-7.3) 06/09/21 06:32 Nucleated RBC % Not Reportable 06/09/21 06:32 Seg Neutrophils # Man 8.5 K/mm3 (1.8-7.7) H 06/09/21 06:32 Band Neutrophils # 1.5 K/mm3 06/09/21 06:32 Lymphocytes # (Manual) 0.3 K/mm3 (1.2-5.4) L 06/09/21 06:32 Abs React Lymphs (Man) 0.1 K/mm3 06/09/21 06:32 Monocytes # (Manual) 0.1 K/mm3 (0.0-0.8) 06/09/21 06:32 Eosinophils # (Manual) 0.0 K/mm3 (0.0-0.4) 06/09/21 06:32 Basophils # (Manual) 0.0 K/mm3 (0.0-0.1) 06/09/21 06:32 Metamyelocytes # 0.0 K/mm3 06/09/21 06:32 Myelocytes # 0.0 K/mm3 06/09/21 06:32 Promyelocytes # 0.0 K/mm3 06/09/21 06:32 Blast Cells # 0.0 K/mm3 06/09/21 06:32 WBC Morphology Not Reportable 06/09/21 06:32 Hypersegmented Neuts Not Reportable 06/09/21 06:32 Hyposegmented Neuts Not Reportable 06/09/21 06:32 Hypogranular Neuts Not Reportable 06/09/21 06:32 Smudge Cells Not Reportable 06/09/21 06:32 Toxic Granulation Not Reportable 06/09/21 06:32 Toxic Vacuolation Not Reportable 06/09/21 06:32 Dohle Bodies Not Reportable 06/09/21 06:32 Pelger-Huet Anomaly Not Reportable 06/09/21 06:32 Mellissa Rods Not Reportable 06/09/21 06:32 Platelet Estimate Consistent w auto 06/09/21 06:32 Clumped Platelets Not Reportable 06/09/21 06:32 Plt Clumps, EDTA Not Reportable 06/09/21 06:32 Large Platelets Not Reportable 06/09/21 06:32 Giant Platelets Not Reportable 06/09/21 06:32 Platelet Satelliting Not Reportable 06/09/21 06:32 Plt Morphology Comment Not Reportable 06/09/21 06:32 RBC Morphology Not Reportable 06/09/21 06:32 Dimorphic RBCs Not Reportable 06/09/21 06:32 Polychromasia Not Reportable 06/09/21 06:32 Hypochromasia 1+ 06/09/21 06:32 Poikilocytosis Not Reportable 06/09/21 06:32 Anisocytosis Rare 06/09/21 06:32 Microcytosis Not Reportable 06/09/21 06:32 Macrocytosis Not Reportable 06/09/21 06:32 Spherocytes Not Reportable 06/09/21 06:32 Pappenheimer Bodies Not Reportable 06/09/21 06:32 Sickle Cells Not Reportable 06/09/21 06:32 Target Cells Not Reportable 06/09/21 06:32 Tear Drop Cells Not Reportable 06/09/21 06:32 Ovalocytes Not Reportable 06/09/21 06:32 Helmet Cells Not Reportable 06/09/21 06:32 Kay-Tuckerman Bodies Not Reportable 06/09/21 06:32 [place] Rings Not Reportable 06/09/21 06:32 [place] Cells Not Reportable 06/09/21 06:32 Bite Cells Not Reportable 06/09/21 06:32 Crenated Cell Not Reportable 06/09/21 06:32 Elliptocytes Not Reportable 06/09/21 06:32 Acanthocytes (Spur) Not Reportable 06/09/21 06:32 Rouleaux Not Reportable 06/09/21 06:32 Hemoglobin C Crystals Not Reportable 06/09/21 06:32 Schistocytes Not Reportable 06/09/21 06:32 Malaria parasites Not Reportable 06/09/21 06:32 Carrillo Bodies Not Reportable 06/09/21 06:32 Hem Pathologist Commnt No 06/09/21 06:32 Sodium 136 mmol/L (137-145) L 06/09/21 06:32 Potassium 3.9 mmol/L (3.6-5.0) 06/09/21 06:32 Chloride 101.6 mmol/L (98-107) 06/09/21 06:32 Carbon Dioxide 24 mmol/L (22-30) 06/09/21 06:32 Anion Gap 14 mmol/L 06/09/21 06:32 BUN 20 mg/dL (9-20) 06/09/21 06:32 Creatinine 1.2 mg/dL (0.8-1.3) 06/09/21 06:32 Estimated GFR > 60 ml/min 06/09/21 06:32 BUN/Creatinine Ratio 17 % 06/09/21 06:32 Glucose 166 mg/dL (75-100) H 06/09/21 06:32 POC Glucose 151 mg/dL (70-105) H 06/10/21 05:54 Hemoglobin A1c 5.9 % (4-6) 06/07/21 23:34 Calcium 8.4 mg/dL (8.4-10.2) 06/09/21 06:32 Total Bilirubin 0.40 mg/dL (0.1-1.2) 06/09/21 06:32 Direct Bilirubin 0.3 mg/dL (0-0.2) H 06/07/21 23:34 Indirect Bilirubin 0.6 mg/dL 06/07/21 23:34 AST 35 units/L (5-40) 06/09/21 06:32 ALT 45 units/L (7-56) 06/09/21 06:32 Alkaline Phosphatase 105 units/L (35-129) 06/09/21 06:32 Total Protein 6.7 g/dL (6.3-8.2) 06/09/21 06:32 Albumin 3.7 g/dL (3.9-5) L 06/09/21 06:32 Albumin/Globulin Ratio 1.2 % 06/09/21 06:32 Lipase 32 units/L (13-60) 06/07/21 23:34 Microbiology: Microbiology 06/08/21 01:33 Peripheral/Venous Blood Culture - Preliminary NO GROWTH AFTER 48 HOURS 06/08/21 01:56 Peripheral/Venous Blood Culture - Preliminary NO GROWTH AFTER 48 HOURS Arzola/IV: Voiding Method Toilet Active Medications - Current Medications Current Medications: Generic Name Dose Route Start Last Admin Trade Name Freq PRN Reason Stop Dose Admin Acetaminophen 650 mg 06/08/21 02:20 Acetaminophen 650 Mg Rect Supp TX Q4H PRN Pain MILD(1-3)/Fever >100.5/SALINAS Amlodipine Besylate 5 mg 06/09/21 10:00 06/09/21 10:50 Amlodipine 5 Mg Tab PO 5 mg DAILY KATERINA Administration Dextrose 50 ml 06/08/21 02:20 Dextrose 50% In Water (25gm) 50 Ml Syringe IV Q30MIN PRN Hypoglycemia Protocol Famotidine 20 mg 06/09/21 22:00 06/10/21 08:44 Famotidine 20 Mg Tab PO 20 mg BID KATERINA Administration Fluoxetine HCl 20 mg 06/09/21 10:00 06/09/21 10:50 Fluoxetine 20 Mg Cap PO 20 mg QDAY KATERINA Administration Heparin Sodium (Porcine) 5,000 unit 06/09/21 10:00 06/09/21 21:58 Heparin 5,000 Unit/1 Ml Vial SUB-Q 5,000 unit Q12HR KATERINA Administration Hydralazine HCl 5 mg 06/10/21 02:00 Hydralazine 20 Mg/1 Ml Inj IV Q4H PRN Blood Pressure Hydromorphone HCl 0.5 mg 06/08/21 02:20 06/08/21 11:36 Hydromorphone 1 Mg/1 Ml Inj IV 0.5 mg Q3H PRN Administration Pain , Severe (7-10) Piperacillin Sod/Tazobactam Sod 4.5 gm in 100 mls @ 200 mls/hr 06/08/21 10:00 06/10/21 01:54 Zosyn/Ns 4.5gm/100ml IV 200 mls/hr Q8H KATERINA Administration Protocol Lactated Ringer's 1,000 mls @ 100 mls/hr 06/08/21 05:30 06/09/21 22:00 Lactated Ringers IV 100 mls/hr DIRECT KATERINA Administration Insulin Human Lispro 0 unit 06/08/21 06:00 06/10/21 05:57 Insulin Lispro 100 Unit/Ml SUB-Q 1 unit Q6HR KATERINA Administration Protocol Ketorolac Tromethamine 30 mg 06/08/21 14:00 06/10/21 05:57 Ketorolac 30 Mg/1 Ml Inj IV 06/13/21 13:59 30 mg Q8HR KATERINA Administration Metformin HCl 500 mg 06/09/21 08:30 06/09/21 18:10 Metformin 500 Mg Tab PO 500 mg BIDDIAB KATERINA Administration Morphine Sulfate 2 mg 06/08/21 02:20 Morphine 2 Mg/1 Ml Inj IV Q4H PRN Pain, Moderate (4-6) Naloxone HCl 0.1 mg 06/08/21 02:20 Naloxone 0.4 Mg/1 Ml Inj IV Q2MIN PRN Res Rate </= 8 or 02 SAT < 92% Ondansetron HCl 4 mg 06/08/21 02:20 06/10/21 05:57 Ondansetron 4 Mg/2 Ml Inj IV 4 mg Q6H PRN Administration Nausea And Vomiting Oxycodone/Acetaminophen 2 tab 06/08/21 13:26 06/08/21 19:20 Oxycodone /Acetaminophen 5-325mg Tab PO 2 tab Q6H PRN Administration Pain, Moderate (4-6) Sodium Chloride 10 ml 06/08/21 10:00 06/09/21 21:59 Sodium Chloride 0.9% 10 Ml Flush Syringe IV 10 ml BID KATERINA Administration Sodium Chloride 10 ml 06/08/21 02:20 Sodium Chloride 0.9% 10 Ml Flush Syringe IV PRN PRN LINE FLUSH
[2021-06-10] MEDS ORDERED: METOCLOPRAMIDE 10 MG/2 ML INJ IV PRN (10:00)
[2021-06-10] MEDS: HEPARIN 5,000 UNIT/1 ML VIAL SUB-Q SCH ×2 (10:00→21:32)
[2021-06-10] MEDS: FLUoxetine 20 MG CAP PO SCH (12:53)
[2021-06-10] MEDS: metFORMIN 500 MG TAB PO SCH ×2 (12:53→17:49)
[2021-06-10] MEDS: amLODIPine 5 MG TAB PO SCH (12:53)
[2021-06-10] MEDS: LACTATED RINGERS 1,000 ML IV SCH ×2 (12:56→21:33)
--- NOTE | 2021-06-10 14:43 | Progress Note ---
Assessment and Plan 51 yo M POD#2 s/p lap appy for perforated appendicitis. 1. Obtain KUB 2. IVF 3. NPO 4. OOB/ambulate - PT consulted 5. prn pain and nausea control. will add scopolamine TD Patient with likely ileus as a result of perforated appendicitis. The importance of getting out of bed and ambulating was discussed with him. Will follow up tomorrow. Patient's sister is at bedside and plan was discussed with her as well. Thank you. Please call with any questions or concerns. Subjective Date of service: 06/10/21 Narrative: Patient seen and examined. Per nursing the patient is having vomiting and is unable to tolerate an oral diet. Patient states he has been having nausea and vomiting since this morning. He is having diarrhea. Afebrile. He states he has not been out of bed since the surgery because his abdomen is tender near the incisions. Objective Vital Signs - 12hr 06/10/21 06/10/21 05:45 10:00 Blood Pressure 130/90 O2 Sat by Pulse 96 Oximetry - General physical appearance Narrative Exam: Gen.: Awake, alert, oriented x3. No apparent distress ENT: Trachea midline. No lymphadenopathy. No scleral icterus or conjunctival pallor CV: S1, S2 present Respiratory: No audible wheezes Abdomen: Soft, mildly distended, obese, nontender. Incisions are clean, dry, intact. ABBEY drain is serous. No rebound, rigidity, guarding Extremities: No clubbing, cyanosis, edema - Labs 06/09/21 06:32 06/09/21 06:32
--- NOTE | 2021-06-10 14:59 | XRay Report ---
ABDOMEN 1 VIEW INDICATION / CLINICAL INFORMATION: n/v, post op perfed appendicitis. COMPARISON: CT from 06/08/2021. FINDINGS: Percutaneous drainage catheter terminates over the right lower quadrant. There is increased gaseous distention of the small bowel within the lower abdomen, likely reflecting worsening postoper ative ileus. No discrete free air. Otherwise stable exam. Signer Name: Dwain Barcenas MD Signed: 06/10/2021 2:54 PM Workstation Name: [id number]
[2021-06-10] MEDS: SCOPOLAMINE TRANSDERMAL PATCH 72 HR TD SCH (17:55)
[2021-06-10] MEDS: LORazepam 2 MG/ML VIAL IV PRN (21:33)
[2021-06-11] MEDS: PIPERACIL/TAZOBACTA 4.5/NS 100 4.5 GM/100 ML VIAL IV SCH ×3 (03:02→17:12)
[2021-06-11 05:45] LABS: Calcium 8.5 mg/dL (8.4-10.2)
[2021-06-11 05:49] LABS: Basophils % (Auto) 0.7 % (0.0-1.8); Eosinophils # (Auto) 0.1 K/mm3 (0.0-0.4); Eosinophils % (Auto) 3.2 % (0.0-4.3); Hematocrit 37.1 % (35.5-45.6); Hemoglobin 12.4 gm/dl (11.8-15.2); Lymphocytes # (Auto) 0.3 K/mm3 (1.2-5.4); Lymphocytes % (Auto) 6.4 % (13.4-35.0); Mean Corpuscular HGB Conc 34 % (32-34); Mean Corpuscular Volume 75 fl (84-94); Monocytes # (Auto) 0.4 K/mm3 (0.0-0.8); Monocytes % (Auto) 9.2 % (0.0-7.3); Platelet Count 253 K/mm3 (140-440); Red Blood Count 4.95 M/mm3 (3.65-5.03); Red Cell Distribution Width 15.1 % (13.2-15.2)
[2021-06-11] MEDS: INSULIN LISPRO 100 UNIT/ML SUB-Q SCH ×3 (07:14→17:13)
[2021-06-11] MEDS: KETOROLAC 30 MG/1 ML INJ IV SCH ×3 (07:18→21:44)
[2021-06-11] MEDS: metFORMIN 500 MG TAB PO SCH ×2 (08:10→16:55)
--- NOTE | 2021-06-11 08:23 | Progress Note ---
Assessment and Plan Assessment and plan: 51-year-old male with a history of diabetes and hypertension schizophrenia admitted to the emergency room with a 3 to 4-day of abdominal pain. Pain localized to the right lower quadrant and supra pubic area. Patient had some fever with nausea but no vomiting. Patient had a CT scan that showed appendi citis with a small amount of focal free air suggestive of a contained perforation. The patient was admitted with diagnosis of sepsis, acute appendicitis, right kidney mass, diabetes mellitus type 2, bipolar disorder, schizophrenia, hypertension. The patient was seen by surgery and underwent laparoscopic appendectomy for a gangrenous perforated acute appendicitis. The patient also has urology consultation for the incidental findings suggestive of RCC. Gangrenous perforated acute appendicitis s/p laparoscopic appendectomy Sepsis. Patient meets criteria given the leukocytosis, tachycardia and diagnosis of appendicitis. Renal mass likely secondary to renal cell carcinoma Diabetes mellitus type 2 Bipolar disorder Schizophrenia Hypertension 06/09/2021. Continue IV antibiotics for now. Surgery following. Follow-up blood cultures. Continue SSRI, Glucophage and Accu-Cheks. Tight glycemic control. Advance diet as tolerated. Urology consultation pending. Norvas for BP 06/10/2021. Patient with episode of nausea and vomiting this morning. Continue Zofran as needed and add Reglan 10 mg IV every 6 hours. Blood cultures with no growth to date x2 days. Consider discharge today if nausea and vomiting resolves. If vomiting does not improve, check KUB to rule out ileus. 06/11/2021. Patient is POD#3 s/p lap appy for perforated appendicitis. KUB is suggestive postoperative ileus. Continue NGT to low intermittent suction. Continue IV fluid hydration and n.p.o. status. Continue pain control and antiemetics for N/V. Continue mobility/ambulation protocols. History Interval history: No new issues overnight. Hospitalist Physical - Constitutional Vitals: Temp Pulse Resp BP Pulse Ox 97.7 F 67 20 144/91 94 06/11/21 06:20 06/11/21 06:20 06/11/21 06:20 06/11/21 06:20 06/11/21 07:36 General appearance: Present: no acute distress, well-nourished - EENT Eyes: Present: PERRL, EOM intact ENT: hearing intact, clear oral mucosa, dentition normal - Neck Neck: Present: supple, normal ROM - Respiratory Respiratory effort: normal Respiratory: bilateral: CTA - Cardiovascular Rhythm: regular Heart Sounds: Present: S1 & S2. Absent: gallop, rub - Extremities Extremities: no ischemia, No edema, Full ROM - Abdominal General gastrointestinal: soft, non-tender, distended, normal bowel sounds - Integumentary Integumentary: Present: clear, warm, dry - Neurologic Neurologic: CNII-XII intact, moves all extremities Results - Labs CBC & Chem 7: 06/11/21 04:51 06/11/21 04:51 Labs: Laboratory Last Values WBC 4.5 K/mm3 (4.5-11.0) 06/11/21 04:51 RBC 4.95 M/mm3 (3.65-5.03) 06/11/21 04:51 Hgb 12.4 gm/dl (11.8-15.2) 06/11/21 04:51 Hct 37.1 % (35.5-45.6) 06/11/21 04:51 MCV 75 fl (84-94) L 06/11/21 04:51 MCH 25 pg (28-32) L 06/11/21 04:51 MCHC 34 % (32-34) 06/11/21 04:51 RDW 15.1 % (13.2-15.2) 06/11/21 04:51 Plt Count 253 K/mm3 (140-440) 06/11/21 04:51 Lymph % (Auto) 6.4 % (13.4-35.0) L 06/11/21 04:51 [place] % (Auto) 9.2 % (0.0-7.3) H 06/11/21 04:51 Eos % (Auto) 3.2 % (0.0-4.3) 06/11/21 04:51 Baso % (Auto) 0.7 % (0.0-1.8) 06/11/21 04:51 Lymph # (Auto) 0.3 K/mm3 (1.2-5.4) L 06/11/21 04:51 [place] # (Auto) 0.4 K/mm3 (0.0-0.8) 06/11/21 04:51 Eos # (Auto) 0.1 K/mm3 (0.0-0.4) 06/11/21 04:51 Baso # (Auto) 0.0 K/mm3 (0.0-0.1) 06/11/21 04:51 Add Manual Diff Complete 06/09/21 06:32 Total Counted 100 06/09/21 06:32 Seg Neutrophils % 80.5 % (40.0-70.0) H 06/11/21 04:51 Seg Neuts % (Manual) 81.0 % (40.0-70.0) H 06/09/21 06:32 Band Neutrophils % 14.0 % 06/09/21 06:32 Lymphocytes % (Manual) 3.0 % (13.4-35.0) L 06/09/21 06:32 Reactive Lymphs % (Man) 1.0 % 06/09/21 06:32 Monocytes % (Manual) 1.0 % (0.0-7.3) 06/09/21 06:32 Nucleated RBC % Not Reportable 06/09/21 06:32 Seg Neutrophils # 3.7 K/mm3 (1.8-7.7) 06/11/21 04:51 Seg Neutrophils # Man 8.5 K/mm3 (1.8-7.7) H 06/09/21 06:32 Band Neutrophils # 1.5 K/mm3 06/09/21 06:32 Lymphocytes # (Manual) 0.3 K/mm3 (1.2-5.4) L 06/09/21 06:32 Abs React Lymphs (Man) 0.1 K/mm3 06/09/21 06:32 Monocytes # (Manual) 0.1 K/mm3 (0.0-0.8) 06/09/21 06:32 Eosinophils # (Manual) 0.0 K/mm3 (0.0-0.4) 06/09/21 06:32 Basophils # (Manual) 0.0 K/mm3 (0.0-0.1) 06/09/21 06:32 Metamyelocytes # 0.0 K/mm3 06/09/21 06:32 Myelocytes # 0.0 K/mm3 06/09/21 06:32 Promyelocytes # 0.0 K/mm3 06/09/21 06:32 Blast Cells # 0.0 K/mm3 06/09/21 06:32 WBC Morphology Not Reportable 06/09/21 06:32 Hypersegmented Neuts Not Reportable 06/09/21 06:32 Hyposegmented Neuts Not Reportable 06/09/21 06:32 Hypogranular Neuts Not Reportable 06/09/21 06:32 Smudge Cells Not Reportable 06/09/21 06:32 Toxic Granulation Not Reportable 06/09/21 06:32 Toxic Vacuolation Not Reportable 06/09/21 06:32 Dohle Bodies Not Reportable 06/09/21 06:32 Pelger-Huet Anomaly Not Reportable 06/09/21 06:32 Mellissa Rods Not Reportable 06/09/21 06:32 Platelet Estimate Consistent w auto 06/09/21 06:32 Clumped Platelets Not Reportable 06/09/21 06:32 Plt Clumps, EDTA Not Reportable 06/09/21 06:32 Large Platelets Not Reportable 06/09/21 06:32 Giant Platelets Not Reportable 06/09/21 06:32 Platelet Satelliting Not Reportable 06/09/21 06:32 Plt Morphology Comment Not Reportable 06/09/21 06:32 RBC Morphology Not Reportable 06/09/21 06:32 Dimorphic RBCs Not Reportable 06/09/21 06:32 Polychromasia Not Reportable 06/09/21 06:32 Hypochromasia 1+ 06/09/21 06:32 Poikilocytosis Not Reportable 06/09/21 06:32 Anisocytosis Rare 06/09/21 06:32 Microcytosis Not Reportable 06/09/21 06:32 Macrocytosis Not Reportable 06/09/21 06:32 Spherocytes Not Reportable 06/09/21 06:32 Pappenheimer Bodies Not Reportable 06/09/21 06:32 Sickle Cells Not Reportable 06/09/21 06:32 Target Cells Not Reportable 06/09/21 06:32 Tear Drop Cells Not Reportable 06/09/21 06:32 Ovalocytes Not Reportable 06/09/21 06:32 Helmet Cells Not Reportable 06/09/21 06:32 Kay-Ribera Bodies Not Reportable 06/09/21 06:32 [place] Rings Not Reportable 06/09/21 06:32 Anand Cells Not Reportable 06/09/21 06:32 Bite Cells Not Reportable 06/09/21 06:32 Crenated Cell Not Reportable 06/09/21 06:32 Elliptocytes Not Reportable 06/09/21 06:32 Acanthocytes (Spur) Not Reportable 06/09/21 06:32 Rouleaux Not Reportable 06/09/21 06:32 Hemoglobin C Crystals Not Reportable 06/09/21 06:32 Schistocytes Not Reportable 06/09/21 06:32 Malaria parasites Not Reportable 06/09/21 06:32 Carrillo Bodies Not Reportable 06/09/21 06:32 Hem Pathologist Commnt No 06/09/21 06:32 Sodium 142 mmol/L (137-145) 06/11/21 04:51 Potassium 3.6 mmol/L (3.6-5.0) 06/11/21 04:51 Chloride 105.8 mmol/L (98-107) 06/11/21 04:51 Carbon Dioxide 21 mmol/L (22-30) L 06/11/21 04:51 Anion Gap 19 mmol/L 06/11/21 04:51 BUN 24 mg/dL (9-20) H 06/11/21 04:51 Creatinine 1.4 mg/dL (0.8-1.3) H 06/11/21 04:51 Estimated GFR 53 ml/min 06/11/21 04:51 BUN/Creatinine Ratio 17 % 06/11/21 04:51 Glucose 134 mg/dL (75-100) H 06/11/21 04:51 POC Glucose 139 mg/dL (70-105) H 06/11/21 06:17 Hemoglobin A1c 5.9 % (4-6) 06/07/21 23:34 Calcium 8.5 mg/dL (8.4-10.2) 06/11/21 04:51 Total Bilirubin 0.40 mg/dL (0.1-1.2) 06/09/21 06:32 Direct Bilirubin 0.3 mg/dL (0-0.2) H 06/07/21 23:34 Indirect Bilirubin 0.6 mg/dL 06/07/21 23:34 AST 35 units/L (5-40) 06/09/21 06:32 ALT 45 units/L (7-56) 06/09/21 06:32 Alkaline Phosphatase 105 units/L (35-129) 06/09/21 06:32 Total Protein 6.7 g/dL (6.3-8.2) 06/09/21 06:32 Albumin 3.7 g/dL (3.9-5) L 06/09/21 06:32 Albumin/Globulin Ratio 1.2 % 06/09/21 06:32 Lipase 32 units/L (13-60) 06/07/21 23:34 Microbiology: Microbiology 06/08/21 01:33 Peripheral/Venous Blood Culture - Preliminary NO GROWTH AFTER 72 HOURS 06/08/21 01:56 Peripheral/Venous Blood Culture - Preliminary NO GROWTH AFTER 72 HOURS Arzola/IV: Voiding Method Toilet Active Medications - Current Medications Current Medications: Generic Name Dose Route Start Last Admin Trade Name Freq PRN Reason Stop Dose Admin Acetaminophen 650 mg 06/08/21 02:20 Acetaminophen 650 Mg Rect Supp TX Q4H PRN Pain MILD(1-3)/Fever >100.5/SALINAS Amlodipine Besylate 5 mg 06/09/21 10:00 06/10/21 12:53 Amlodipine 5 Mg Tab PO 5 mg DAILY KATERINA Administration Dextrose 50 ml 06/08/21 02:20 Dextrose 50% In Water (25gm) 50 Ml Syringe IV Q30MIN PRN Hypoglycemia Protocol Famotidine 20 mg 06/09/21 22:00 06/10/21 21:34 Famotidine 20 Mg Tab PO Not Given BID KATERINA Fluoxetine HCl 20 mg 06/09/21 10:00 06/10/21 12:53 Fluoxetine 20 Mg Cap PO 20 mg QDAY KATERINA Administration Heparin Sodium (Porcine) 5,000 unit 06/09/21 10:00 06/10/21 21:32 Heparin 5,000 Unit/1 Ml Vial SUB-Q 5,000 unit Q12HR KATERINA Administration Hydralazine HCl 5 mg 06/10/21 02:00 Hydralazine 20 Mg/1 Ml Inj IV Q4H PRN Blood Pressure Hydromorphone HCl 0.5 mg 06/08/21 02:20 06/08/21 11:36 Hydromorphone 1 Mg/1 Ml Inj IV 0.5 mg Q3H PRN Administration Pain , Severe (7-10) Piperacillin Sod/Tazobactam Sod 4.5 gm in 100 mls @ 200 mls/hr 06/08/21 10:00 06/11/21 03:02 Zosyn/Ns 4.5gm/100ml IV 200 mls/hr Q8H KATERINA Administration Protocol Lactated Ringer's 1,000 mls @ 100 mls/hr 06/08/21 05:30 06/10/21 21:33 Lactated Ringers IV 100 mls/hr DIRECT KATERINA Administration Insulin Human Lispro 0 unit 06/08/21 06:00 06/11/21 07:14 Insulin Lispro 100 Unit/Ml SUB-Q Not Given Q6HR [facility] Protocol Ketorolac Tromethamine 30 mg 06/08/21 14:00 06/11/21 07:18 Ketorolac 30 Mg/1 Ml Inj IV 06/13/21 13:59 30 mg Q8HR KATERINA Administration Lorazepam 1 mg 06/10/21 20:53 06/10/21 21:33 Lorazepam 2 Mg/Ml Vial IV 1 mg Q6H PRN Administration Anxiety Metformin HCl 500 mg 06/09/21 08:30 06/11/21 08:10 Metformin 500 Mg Tab PO Not Given BIDDIAB [facility] Metoclopramide HCl 10 mg 06/10/21 10:00 06/10/21 17:55 Metoclopramide 10 Mg/2 Ml Inj IV 10 mg Q6H PRN Administration Nausea And Vomiting Morphine Sulfate 2 mg 06/08/21 02:20 Morphine 2 Mg/1 Ml Inj IV Q4H PRN Pain, Moderate (4-6) Naloxone HCl 0.1 mg 06/08/21 02:20 Naloxone 0.4 Mg/1 Ml Inj IV Q2MIN PRN Res Rate </= 8 or 02 SAT < 92% Ondansetron HCl 4 mg 06/08/21 02:20 06/10/21 21:33 Ondansetron 4 Mg/2 Ml Inj IV 4 mg Q6H PRN Administration Nausea And Vomiting Oxycodone/Acetaminophen 2 tab 06/08/21 13:26 06/08/21 19:20 Oxycodone /Acetaminophen 5-325mg Tab PO 2 tab Q6H PRN Administration Pain, Moderate (4-6) Scopolamine 1 each 06/10/21 14:19 06/10/21 17:55 Scopolamine Transdermal Patch 72 Hr TD 1 each Q3D KATERINA Administration Sodium Chloride 10 ml 06/08/21 10:00 06/10/21 21:34 Sodium Chloride 0.9% 10 Ml Flush Syringe IV 10 ml BID KATERINA Administration Sodium Chloride 10 ml 06/08/21 02:20 Sodium Chloride 0.9% 10 Ml Flush Syringe IV PRN PRN LINE FLUSH
[2021-06-11] MEDS: HEPARIN 5,000 UNIT/1 ML VIAL SUB-Q SCH ×2 (09:04→21:44)
[2021-06-11] MEDS: FAMOTIDINE 20 MG TAB PO SCH (09:04)
[2021-06-11] MEDS: amLODIPine 5 MG TAB PO SCH (09:04)
[2021-06-11] MEDS: FLUoxetine 20 MG CAP PO SCH (09:06)
--- NOTE | 2021-06-11 09:12 | XRay Report ---
ABDOMEN 1 VIEW INDICATION / CLINICAL INFORMATION: ileus. COMPARISON: Yesterday, 06/10/2021 FINDINGS: TUBES / LINES: Nasogastric tube tip and side-port project within the distal stomach. Drainage cathete r projects over the right lower quadrant. BOWEL GAS PATTERN: Increasing gas dilated small bowel throughout the abdomen. FREE AIR / EXTRALUMINAL GAS: None. ADDITIONAL FINDINGS: No significant additional findings. IMPRESSION: Increased gaseous dilation of the small bowel throughout the abdomen, likely representing worsening p ostoperative ileus Signer Name: Dwain Barcenas MD Signed: 06/11/2021 9:07 AM Workstation Name: [id number]
[2021-06-11] MEDS: ONDANSETRON 4 MG/2 ML INJ IV PRN (12:49)
--- NOTE | 2021-06-11 14:23 | Progress Note ---
Assessment and Plan 51 yo M with ileus POD#3 s/p lap appy for perforated appendicitis Plan: 1. KUB tomorrow 2. c/w IVF 3. NPO 4. OOB/ambulate 5. prn pain and nausea control. 6. await bowel function 7. NGT to LIWS - record output q shift 8. hold PO meds Thank you. Please call with any questions or concerns. Subjective Date of service: 06/11/21 Narrative: Patient seen and examined. NG tube was placed yesterday due to vomiting. Patient states he has not had any nausea or vomiting since. His abdominal pain is much improved but he still experiences some soreness near his incisions. No fevers or chills. Per nursing notes NG tube output was 4 L since insertion. It has been bilious. Patient denies flatus or BM. He was out of bed with physical therapy and walked in the hallways. Objective Vital Signs - 12hr 06/11/21 06/11/21 06:20 07:36 Temperature 97.7 F Pulse Rate 67 Respiratory 20 Rate Blood Pressure 144/91 O2 Sat by Pulse 93 94 Oximetry - General physical appearance Narrative Exam: Gen.: Awake, alert, oriented x3. No apparent distress ENT: NG tube in place with bilious output. Trachea midline. No lymphadenopathy. No scleral icterus or conjunctival pallor CV: S1, S2 present Respiratory: No audible wheezes Abdomen: Soft, obese, mildly distended, nontender. ABBEY drain is serous. No rebound, rigidity, guarding Extremities: No clubbing, cyanosis, edema - Labs 06/11/21 04:51 06/11/21 04:51 Diabetes panel 06/11/21 Range/Units 04:51 Sodium 142 (137-145) mmol/L Potassium 3.6 (3.6-5.0) mmol/L Chloride 105.8 (98-107) mmol/L Carbon Dioxide 21 L (22-30) mmol/L BUN 24 H (9-20) mg/dL Creatinine 1.4 H (0.8-1.3) mg/dL Glucose 134 H (75-100) mg/dL Calcium 8.5 (8.4-10.2) mg/dL Calcium panel 06/11/21 Range/Units 04:51 Calcium 8.5 (8.4-10.2) mg/dL Pituitary panel 06/11/21 Range/Units 04:51 Sodium 142 (137-145) mmol/L Potassium 3.6 (3.6-5.0) mmol/L Chloride 105.8 (98-107) mmol/L Carbon Dioxide 21 L (22-30) mmol/L BUN 24 H (9-20) mg/dL Creatinine 1.4 H (0.8-1.3) mg/dL Glucose 134 H (75-100) mg/dL Calcium 8.5 (8.4-10.2) mg/dL Adrenal panel 06/11/21 Range/Units 04:51 Sodium 142 (137-145) mmol/L Potassium 3.6 (3.6-5.0) mmol/L Chloride 105.8 (98-107) mmol/L Carbon Dioxide 21 L (22-30) mmol/L BUN 24 H (9-20) mg/dL Creatinine 1.4 H (0.8-1.3) mg/dL Glucose 134 H (75-100) mg/dL Calcium 8.5 (8.4-10.2) mg/dL
--- NOTE | 2021-06-11 15:44 | XRay Report ---
ABDOMEN 1 VIEW INDICATION / CLINICAL INFORMATION: ileus. COMPARISON: Earlier same day FINDINGS: TUBES / LINES: Enteric tube within the stomach BOWEL GAS PATTERN: Gaseous prominence of the small bowel throughout the abdomen with maximal dilatati on of the small bowel loops measuring approximately 6.8 cm. FREE AIR / EXTRALUMINAL GAS: None seen. ADDITIONAL FINDINGS: No significant additional findings. IMPRESSION: 1. No significant change in small bowel ileus compared to reference exam earlier same day. Signer Name: Chilo Grider MD Signed: 06/11/2021 3:40 PM Workstation Name: [id number]
[2021-06-11] MEDS: D5NS W/KCL 20 MEQ 20 MEQ/1,000 ML BAG IV SCH (17:14)
[2021-06-11] MEDS: CLOZAPINE 100 MG PO SCH (21:43)
[2021-06-11] MEDS: FAMOTIDINE 20 MG/2 ML INJ IV SCH (21:44)
[2021-06-12] MEDS: INSULIN LISPRO 100 UNIT/ML SUB-Q SCH ×4 (00:30→17:31)
[2021-06-12] MEDS: PIPERACIL/TAZOBACTA 4.5/NS 100 4.5 GM/100 ML VIAL IV SCH ×3 (02:30→19:44)
[2021-06-12] MEDS: KETOROLAC 30 MG/1 ML INJ IV SCH ×3 (05:56→21:10)
[2021-06-12] MEDS: D5NS W/KCL 20 MEQ 20 MEQ/1,000 ML BAG IV SCH (07:55)
--- NOTE | 2021-06-12 07:57 | Progress Note ---
Assessment and Plan Assessment and plan: 51-year-old male with a history of diabetes and hypertension schizophrenia admitted to the emergency room with a 3 to 4-day of abdominal pain. Pain localized to the right lower quadrant and supra pubic area. Patient had some fever with nausea but no vomiting. Patient had a CT scan that showed appendi citis with a small amount of focal free air suggestive of a contained perforation. The patient was admitted with diagnosis of sepsis, acute appendicitis, right kidney mass, diabetes mellitus type 2, bipolar disorder, schizophrenia, hypertension. The patient was seen by surgery and underwent laparoscopic appendectomy for a gangrenous perforated acute appendicitis. The patient also has urology consultation for the incidental findings suggestive of RCC. Gangrenous perforated acute appendicitis s/p laparoscopic appendectomy Sepsis. Patient meets criteria given the leukocytosis, tachycardia and diagnosis of appendicitis. Renal mass likely secondary to renal cell carcinoma Acute kidney injury. Etiology likely secondary to vasomotor nephropathy +/- sepsis/ATN Diabetes mellitus type 2 Bipolar disorder Schizophrenia Hypertension 06/09/2021. Continue IV antibiotics for now. Surgery following. Follow-up blood cultures. Continue SSRI, Glucophage and Accu-Cheks. Tight glycemic c ontrol. Advance diet as tolerated. Urology consultation pending. Norvasc for BP 06/10/2021. Patient with episode of nausea and vomiting this morning. Continue Zofran as needed and add Reglan 10 mg IV every 6 hours. Blood cultures with no growth to date x2 days. Consider discharge today if nausea and vomiting resolves. If vomiting does not improve, check KUB to rule out ileus. 06/11/2021. Patient is POD#3 s/p lap appy for perforated appendicitis. KUB is suggestive postoperative ileus. Continue NGT to low intermittent suction. Continue IV fluid hydration and n.p.o. status. Continue pain control and antiemetics for N/V. Continue mobility/ambulation protocols. 06/12/2021. Follow-up KUB this a.m. KUB from yesterday showed no change in postoperative ileus. Continue n.p.o. status and advance diet per surgery recommendations. NGT to low intermittent suction. Creatinine was slightly elevated yesterday 1.4. Continue IV fluid hydration. Recheck BMP today History Interval history: No new issues overnight. Hospitalist Physical - Constitutional Vitals: Temp Pulse Resp BP Pulse Ox 98.2 F 58 L 18 134/77 92 06/12/21 04:05 06/12/21 04:05 06/12/21 04:05 06/12/21 04:05 06/12/21 04:05 General appearance: Present: no acute distress, well-nourished - EENT Eyes: Present: PERRL, EOM intact ENT: hearing intact, clear oral mucosa, dentition normal - Neck Neck: Present: supple, normal ROM - Respiratory Respiratory effort: normal Respiratory: bilateral: CTA - Cardiovascular Rhythm: regular Heart Sounds: Present: S1 & S2. Absent: gallop, rub - Extremities Extremities: no ischemia, No edema, Full ROM - Abdominal General gastrointestinal: soft, non-tender, non-distended, normal bowel sounds - Integumentary Integumentary: Present: clear, warm, dry - Neurologic Neurologic: CNII-XII intact, moves all extremities Results - Labs CBC & Chem 7: 06/11/21 04:51 06/12/21 07:24 Labs: Laboratory Last Values WBC 4.5 K/mm3 (4.5-11.0) 06/11/21 04:51 RBC 4.95 M/mm3 (3.65-5.03) 06/11/21 04:51 Hgb 12.4 gm/dl (11.8-15.2) 06/11/21 04:51 Hct 37.1 % (35.5-45.6) 06/11/21 04:51 MCV 75 fl (84-94) L 06/11/21 04:51 MCH 25 pg (28-32) L 06/11/21 04:51 MCHC 34 % (32-34) 06/11/21 04:51 RDW 15.1 % (13.2-15.2) 06/11/21 04:51 Plt Count 253 K/mm3 (140-440) 06/11/21 04:51 Lymph % (Auto) 6.4 % (13.4-35.0) L 06/11/21 04:51 Beauregard % (Auto) 9.2 % (0.0-7.3) H 06/11/21 04:51 Eos % (Auto) 3.2 % (0.0-4.3) 06/11/21 04:51 Baso % (Auto) 0.7 % (0.0-1.8) 06/11/21 04:51 Lymph # (Auto) 0.3 K/mm3 (1.2-5.4) L 06/11/21 04:51 Beauregard # (Auto) 0.4 K/mm3 (0.0-0.8) 06/11/21 04:51 Eos # (Auto) 0.1 K/mm3 (0.0-0.4) 06/11/21 04:51 Baso # (Auto) 0.0 K/mm3 (0.0-0.1) 06/11/21 04:51 Add Manual Diff Complete 06/09/21 06:32 Total Counted 100 06/09/21 06:32 Seg Neutrophils % 80.5 % (40.0-70.0) H 06/11/21 04:51 Seg Neuts % (Manual) 81.0 % (40.0-70.0) H 06/09/21 06:32 Band Neutrophils % 14.0 % 06/09/21 06:32 Lymphocytes % (Manual) 3.0 % (13.4-35.0) L 06/09/21 06:32 Reactive Lymphs % (Man) 1.0 % 06/09/21 06:32 Monocytes % (Manual) 1.0 % (0.0-7.3) 06/09/21 06:32 Nucleated RBC % Not Reportable 06/09/21 06:32 Seg Neutrophils # 3.7 K/mm3 (1.8-7.7) 06/11/21 04:51 Seg Neutrophils # Man 8.5 K/mm3 (1.8-7.7) H 06/09/21 06:32 Band Neutrophils # 1.5 K/mm3 06/09/21 06:32 Lymphocytes # (Manual) 0.3 K/mm3 (1.2-5.4) L 06/09/21 06:32 Abs React Lymphs (Man) 0.1 K/mm3 06/09/21 06:32 Monocytes # (Manual) 0.1 K/mm3 (0.0-0.8) 06/09/21 06:32 Eosinophils # (Manual) 0.0 K/mm3 (0.0-0.4) 06/09/21 06:32 Basophils # (Manual) 0.0 K/mm3 (0.0-0.1) 06/09/21 06:32 Metamyelocytes # 0.0 K/mm3 06/09/21 06:32 Myelocytes # 0.0 K/mm3 06/09/21 06:32 Promyelocytes # 0.0 K/mm3 06/09/21 06:32 Blast Cells # 0.0 K/mm3 06/09/21 06:32 WBC Morphology Not Reportable 06/09/21 06:32 Hypersegmented Neuts Not Reportable 06/09/21 06:32 Hyposegmented Neuts Not Reportable 06/09/21 06:32 Hypogranular Neuts Not Reportable 06/09/21 06:32 Smudge Cells Not Reportable 06/09/21 06:32 Toxic Granulation Not Reportable 06/09/21 06:32 Toxic Vacuolation Not Reportable 06/09/21 06:32 Dohle Bodies Not Reportable 06/09/21 06:32 Pelger-Huet Anomaly Not Reportable 06/09/21 06:32 Mellissa Rods Not Reportable 06/09/21 06:32 Platelet Estimate Consistent w auto 06/09/21 06:32 Clumped Platelets Not Reportable 06/09/21 06:32 Plt Clumps, EDTA Not Reportable 06/09/21 06:32 Large Platelets Not Reportable 06/09/21 06:32 Giant Platelets Not Reportable 06/09/21 06:32 Platelet Satelliting Not Reportable 06/09/21 06:32 Plt Morphology Comment Not Reportable 06/09/21 06:32 RBC Morphology Not Reportable 06/09/21 06:32 Dimorphic RBCs Not Reportable 06/09/21 06:32 Polychromasia Not Reportable 06/09/21 06:32 Hypochromasia 1+ 06/09/21 06:32 Poikilocytosis Not Reportable 06/09/21 06:32 Anisocytosis Rare 06/09/21 06:32 Microcytosis Not Reportable 06/09/21 06:32 Macrocytosis Not Reportable 06/09/21 06:32 Spherocytes Not Reportable 06/09/21 06:32 Pappenheimer Bodies Not Reportable 06/09/21 06:32 Sickle Cells Not Reportable 06/09/21 06:32 Target Cells Not Reportable 06/09/21 06:32 Tear Drop Cells Not Reportable 06/09/21 06:32 Ovalocytes Not Reportable 06/09/21 06:32 Helmet Cells Not Reportable 06/09/21 06:32 Kay-Klahr Bodies Not Reportable 06/09/21 06:32 [place] Rings Not Reportable 06/09/21 06:32 Schneider Cells Not Reportable 06/09/21 06:32 Bite Cells Not Reportable 06/09/21 06:32 Crenated Cell Not Reportable 06/09/21 06:32 Elliptocytes Not Reportable 06/09/21 06:32 Acanthocytes (Spur) Not Reportable 06/09/21 06:32 Rouleaux Not Reportable 06/09/21 06:32 Hemoglobin C Crystals Not Reportable 06/09/21 06:32 Schistocytes Not Reportable 06/09/21 06:32 Malaria parasites Not Reportable 06/09/21 06:32 Carrillo Bodies Not Reportable 06/09/21 06:32 Hem Pathologist Commnt No 06/09/21 06:32 Sodium 142 mmol/L (137-145) 06/11/21 04:51 Potassium 3.6 mmol/L (3.6-5.0) 06/11/21 04:51 Chloride 105.8 mmol/L (98-107) 06/11/21 04:51 Carbon Dioxide 21 mmol/L (22-30) L 06/11/21 04:51 Anion Gap 19 mmol/L 06/11/21 04:51 BUN 24 mg/dL (9-20) H 06/11/21 04:51 Creatinine 1.4 mg/dL (0.8-1.3) H 06/11/21 04:51 Estimated GFR 53 ml/min 06/11/21 04:51 BUN/Creatinine Ratio 17 % 06/11/21 04:51 Glucose 134 mg/dL (75-100) H 06/11/21 04:51 POC Glucose 133 mg/dL (70-105) H 06/12/21 05:46 Hemoglobin A1c 5.9 % (4-6) 06/07/21 23:34 Calcium 8.5 mg/dL (8.4-10.2) 06/11/21 04:51 Total Bilirubin 0.40 mg/dL (0.1-1.2) 06/09/21 06:32 Direct Bilirubin 0.3 mg/dL (0-0.2) H 06/07/21 23:34 Indirect Bilirubin 0.6 mg/dL 06/07/21 23:34 AST 35 units/L (5-40) 06/09/21 06:32 ALT 45 units/L (7-56) 06/09/21 06:32 Alkaline Phosphatase 105 units/L (35-129) 06/09/21 06:32 Total Protein 6.7 g/dL (6.3-8.2) 06/09/21 06:32 Albumin 3.7 g/dL (3.9-5) L 06/09/21 06:32 Albumin/Globulin Ratio 1.2 % 06/09/21 06:32 Lipase 32 units/L (13-60) 06/07/21 23:34 Microbiology: Microbiology 06/08/21 01:33 Peripheral/Venous Blood Culture - Preliminary NO GROWTH AFTER 4 DAYS 06/08/21 01:56 Peripheral/Venous Blood Culture - Preliminary NO GROWTH AFTER 4 DAYS Arzola/IV: Voiding Method Toilet Active Medications - Current Medications Current Medications: Generic Name Dose Route Start Last Admin Trade Name Freq PRN Reason Stop Dose Admin Acetaminophen 650 mg 06/08/21 02:20 Acetaminophen 650 Mg Rect Supp PA Q4H PRN Pain MILD(1-3)/Fever >100.5/SALINAS Amlodipine Besylate 5 mg 06/09/21 10:00 06/11/21 09:04 Amlodipine 5 Mg Tab PO Not Given DAILY KATERINA Dextrose 50 ml 06/08/21 02:20 Dextrose 50% In Water (25gm) 50 Ml Syringe IV Q30MIN PRN Hypoglycemia Protocol Famotidine 20 mg 06/11/21 22:00 06/11/21 21:44 Famotidine 20 Mg/2 Ml Inj IV 20 mg BID KATERINA Administration Fluoxetine HCl 20 mg 06/09/21 10:00 06/11/21 09:06 Fluoxetine 20 Mg Cap PO Not Given QDAY KATERINA Heparin Sodium (Porcine) 5,000 unit 06/09/21 10:00 06/11/21 21:44 Heparin 5,000 Unit/1 Ml Vial SUB-Q Not Given Q12HR KATERINA Hydralazine HCl 5 mg 06/10/21 02:00 Hydralazine 20 Mg/1 Ml Inj IV Q4H PRN Blood Pressure Hydromorphone HCl 0.5 mg 06/08/21 02:20 06/08/21 11:36 Hydromorphone 1 Mg/1 Ml Inj IV 0.5 mg Q3H PRN Administration Pain , Severe (7-10) Piperacillin Sod/Tazobactam Sod 4.5 gm in 100 mls @ 200 mls/hr 06/08/21 10:00 06/12/21 02:30 Zosyn/Ns 4.5gm/100ml IV 06/13/21 23:59 200 mls/hr Q8H KATERINA Administration Protocol Potassium Chloride/Dextrose/Sod Cl 20 meq in 1,000 mls @ 100 mls/hr 06/11/21 14:00 06/12/21 07:55 D5w/Ns W/Kcl 20meq IV 100 mls/hr DIRECT KATERINA Administration Insulin Human Lispro 0 unit 06/08/21 06:00 06/12/21 05:55 Insulin Lispro 100 Unit/Ml SUB-Q Not Given Q6HR [facility] Protocol Ketorolac Tromethamine 30 mg 06/08/21 14:00 06/12/21 05:56 Ketorolac 30 Mg/1 Ml Inj IV 06/13/21 13:59 Not Given Q8HR [facility] Lorazepam 1 mg 06/10/21 20:53 06/10/21 21:33 Lorazepam 2 Mg/Ml Vial IV 1 mg Q6H PRN Administration Anxiety Metformin HCl 500 mg 06/09/21 08:30 06/11/21 16:55 Metformin 500 Mg Tab PO Not Given BIDDIAB [facility] Miscellaneous Medication 0 mg 06/12/21 10:00 Clozapine (Nf) PO QAM [facility] Miscellaneous Medication 0 mg 06/11/21 22:00 06/11/21 21:43 Clozapine PO Not Given QHS [facility] Morphine Sulfate 2 mg 06/08/21 02:20 Morphine 2 Mg/1 Ml Inj IV Q4H PRN Pain, Moderate (4-6) Naloxone HCl 0.1 mg 06/08/21 02:20 Naloxone 0.4 Mg/1 Ml Inj IV Q2MIN PRN Res Rate </= 8 or 02 SAT < 92% Ondansetron HCl 4 mg 06/08/21 02:20 06/11/21 12:49 Ondansetron 4 Mg/2 Ml Inj IV 4 mg Q6H PRN Administration Nausea And Vomiting Scopolamine 1 each 06/10/21 14:19 06/10/21 17:55 Scopolamine Transdermal Patch 72 Hr TD 1 each Q3D KATERINA Administration Sodium Chloride 10 ml 06/08/21 10:00 06/11/21 21:44 Sodium Chloride 0.9% 10 Ml Flush Syringe IV 10 ml BID KATERINA Administration Sodium Chloride 10 ml 06/08/21 02:20 Sodium Chloride 0.9% 10 Ml Flush Syringe IV PRN PRN LINE FLUSH
[2021-06-12 08:01] LABS: BUN/Creatinine Ratio 15; Blood Urea Nitrogen 15 mg/dL (9-20); Calcium 8.1 mg/dL (8.4-10.2); Hemolysis Index 2
[2021-06-12] MEDS: amLODIPine 5 MG TAB PO SCH (10:00)
[2021-06-12] MEDS ORDERED: CLOZAPINE 100 MG PO SCH (10:00)
[2021-06-12] MEDS: metFORMIN 500 MG TAB PO SCH ×2 (10:00→16:18)
[2021-06-12] MEDS: FLUoxetine 20 MG CAP PO SCH (10:01)
[2021-06-12] MEDS: HEPARIN 5,000 UNIT/1 ML VIAL SUB-Q SCH ×2 (10:04→21:10)
[2021-06-12] MEDS: FAMOTIDINE 20 MG/2 ML INJ IV SCH ×2 (10:04→21:10)
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
--- NOTE | 2021-06-12 13:41 | XRay Report ---
ABDOMEN 1 VIEW(S) INDICATION / CLINICAL INFORMATION: follow up ileus. COMPARISON: 06/11/2021 FINDINGS: TUBES / LINES: Nasogastric tube has been removed. There appears to be a surgical drain overlying the pelvis. BOWEL GAS PATTERN: Mild improvement in gaseous distention of small bowel loops is noted. There is nor mal gas in the colon. FREE AIR / EXTRALUMINAL GAS: None seen. ADDITIONAL FINDINGS: No significant additional findings. IMPRESSION: Mild improvement in gaseous distention of small bowel loops since yesterday's exam. Signer Name: Azam Perez Jr, MD Signed: 06/12/2021 1:37 PM Workstation Name: [id number]
[2021-06-12] MEDS: CLOZAPINE 100 MG PO SCH (21:08)
[2021-06-13] MEDS: D5NS W/KCL 20 MEQ 20 MEQ/1,000 ML BAG IV SCH ×3 (00:55→22:04)
[2021-06-13] MEDS: INSULIN LISPRO 100 UNIT/ML SUB-Q SCH ×4 (00:55→18:08)
[2021-06-13] MEDS: PIPERACIL/TAZOBACTA 4.5/NS 100 4.5 GM/100 ML VIAL IV SCH ×3 (01:44→18:13)
[2021-06-13] MEDS: KETOROLAC 30 MG/1 ML INJ IV SCH (05:51)
[2021-06-13 07:34] LABS: Hematocrit 35.1 % (35.5-45.6); Hemoglobin 11.4 gm/dl (11.8-15.2); Mean Corpuscular HGB Conc 33 % (32-34); Mean Corpuscular Volume 75 fl (84-94); Platelet Count 215 K/mm3 (140-440); Red Blood Count 4.69 M/mm3 (3.65-5.03); Red Cell Distribution Width 14.8 % (13.2-15.2)
[2021-06-13 07:45] LABS: BUN/Creatinine Ratio 14; Blood Urea Nitrogen 13 mg/dL (9-20); Calcium 8.3 mg/dL (8.4-10.2); Hemolysis Index 17
[2021-06-13 08:24] LABS: Anisocytosis 1+; Total Cells Counted 100
[2021-06-13 08:25] LABS: Hypochromasia Few; Platelet Estimate Consistent w Auto
[2021-06-13] MEDS: metFORMIN 500 MG TAB PO SCH ×2 (10:24→18:08)
[2021-06-13] MEDS: HEPARIN 5,000 UNIT/1 ML VIAL SUB-Q SCH ×2 (10:33→21:40)
[2021-06-13] MEDS: amLODIPine 5 MG TAB PO SCH (10:34)
[2021-06-13] MEDS: CLOZAPINE 100 MG PO SCH ×2 (10:34→21:41)
--- NOTE | 2021-06-13 10:34 | Progress Note ---
Assessment and Plan Assessment and plan: 51-year-old male with a history of diabetes and hypertension schizophrenia admitted to the emergency room with a 3 to 4-day of abdominal pain. Pain localized to the right lower quadrant and supra pubic area. Patient had some fever with nausea but no vomiting. Patient had a CT scan that showed appendic itis with a small amount of focal free air suggestive of a contained perforation. The patient was admitted with diagnosis of sepsis, acute appendicitis, right kidney mass, diabetes mellitus type 2, bipolar disorder, schizophrenia, hypertension. The patient was seen by surgery and underwent laparoscopic appendectomy for a gangrenous perforated acute appendicitis. The patient also has urology consultation for the incidental findings suggestive of RCC. Gangrenous perforated acute appendicitis s/p laparoscopic appendectomy Sepsis. Patient meets criteria given the leukocytosis, tachycardia and diagnosis of appendicitis. Renal mass likely secondary to renal cell carcinoma Acute kidney injury. Etiology likely secondary to vasomotor nephropathy +/- sepsis/ATN Diabetes mellitus type 2 Bipolar disorder Schizophrenia Hypertension 06/09/2021. Continue IV antibiotics for now. Surgery following. Follow-up blood cultures. Continue SSRI, Glucophage and Accu-Cheks. Tight glycemic co ntrol. Advance diet as tolerated. Urology consultation pending. Norvasc for BP 06/10/2021. Patient with episode of nausea and vomiting this morning. Continue Zofran as needed and add Reglan 10 mg IV every 6 hours. Blood cultures with no growth to date x2 days. Consider discharge today if nausea and vomiting resolves. If vomiting does not improve, check KUB to rule out ileus. 06/11/2021. Patient is POD#3 s/p lap appy for perforated appendicitis. KUB is suggestive postoperative ileus. Continue NGT to low intermittent suction. Continue IV fluid hydration and n.p.o. status. Continue pain control and antiemetics for N/V. Continue mobility/ambulation protocols. 06/12/2021. Follow-up KUB this a.m. KUB from yesterday showed no change in postoperative ileus. Continue n.p.o. status and advance diet per surgery recommendations. NGT to low intermittent suction. Creatinine was slightly elevated yesterday 1.4. Continue IV fluid hydration. Recheck BMP today 06/13: Patient remains clinically stable although a bit confused about bowel activity. KUB today shows mild improvement. ABBEY drain still in place and with output. Awaiting surgery evaluation there is documentation of BM yesterday. Leukocytosis is resolved. Discharge plan will be per surgeon. Requested outpatient to chair today. History Interval history: Patient seen and examined resting comfortably drain still in place with output. Patient reports mild flatus a bit confused about if he had a BM or not although there is documentation of 1 BM Hospitalist Physical - Physical exam Narrative exam: VITAL SIGNS: Reviewed. GENERAL: The patient appears normally developed, obese, lethargic vital signs as documented. HEAD: No signs of head trauma. EYES: Pupils are equal. Extraocular motions intact. EARS: Hearing grossly intact. MOUTH: Oropharynx is normal. NECK: No adenopathy, no JVD. CHEST: Chest with clear breath sounds bilaterally. No wheezes, rales, or rhonchi. CARDIAC: Regular rate and rhythm. S1 and S2, without murmurs, gallops, or rubs. VASCULAR: No Edema. Peripheral pulses normal and equal in all extremities. ABDOMEN: Soft, distended hypoactive bowel sounds ABBEY drain is in place. No rebound or guarding, and no masses palpated. MUSCULOSKELETAL: Good range of motion of all major joints. Extremities without clubbing, cyanosis or edema. NEUROLOGIC EXAM: Alert and oriented x 3 No focal sensory or strength deficits. Speech normal. Follows commands. PSYCHIATRIC: Mood normal. SKIN: detail exam as documented in skin assessment - Constitutional Vitals: Temp Pulse Resp BP Pulse Ox 98.0 F 64 16 161/83 95 06/13/21 04:53 06/13/21 04:53 06/13/21 04:53 06/13/21 04:53 06/13/21 07:20 General appearance: Present: no acute distress, well-nourished Results - Labs CBC & Chem 7: 06/13/21 06:34 06/13/21 06:34 Labs: Laboratory Last Values WBC 6.5 K/mm3 (4.5-11.0) 06/13/21 06:34 RBC 4.69 M/mm3 (3.65-5.03) 06/13/21 06:34 Hgb 11.4 gm/dl (11.8-15.2) L 06/13/21 06:34 Hct 35.1 % (35.5-45.6) L 06/13/21 06:34 MCV 75 fl (84-94) L 06/13/21 06:34 MCH 24 pg (28-32) L 06/13/21 06:34 MCHC 33 % (32-34) 06/13/21 06:34 RDW 14.8 % (13.2-15.2) 06/13/21 06:34 Plt Count 215 K/mm3 (140-440) 06/13/21 06:34 Lymph % (Auto) 6.4 % (13.4-35.0) L 06/11/21 04:51 Collin % (Auto) 9.2 % (0.0-7.3) H 06/11/21 04:51 Eos % (Auto) 3.2 % (0.0-4.3) 06/11/21 04:51 Baso % (Auto) 0.7 % (0.0-1.8) 06/11/21 04:51 Lymph # (Auto) 0.3 K/mm3 (1.2-5.4) L 06/11/21 04:51 Collin # (Auto) 0.4 K/mm3 (0.0-0.8) 06/11/21 04:51 Eos # (Auto) 0.1 K/mm3 (0.0-0.4) 06/11/21 04:51 Baso # (Auto) 0.0 K/mm3 (0.0-0.1) 06/11/21 04:51 Add Manual Diff Complete 06/13/21 06:34 Total Counted 100 06/13/21 06:34 Seg Neutrophils % 80.5 % (40.0-70.0) H 06/11/21 04:51 Seg Neuts % (Manual) 69.0 % (40.0-70.0) 06/13/21 06:34 Band Neutrophils % 14.0 % 06/09/21 06:32 Lymphocytes % (Manual) 16.0 % (13.4-35.0) 06/13/21 06:34 Reactive Lymphs % (Man) 1.0 % 06/09/21 06:32 Monocytes % (Manual) 10.0 % (0.0-7.3) H 06/13/21 06:34 Eosinophils % (Manual) 1.0 % (0.0-4.3) 06/13/21 06:34 Basophils % (Manual) 1.0 % (0.0-1.8) 06/13/21 06:34 Metamyelocytes % 3.0 % 06/13/21 06:34 Nucleated RBC % Not Reportable 06/13/21 06:34 Seg Neutrophils # 3.7 K/mm3 (1.8-7.7) 06/11/21 04:51 Seg Neutrophils # Man 4.5 K/mm3 (1.8-7.7) 06/13/21 06:34 Band Neutrophils # 0.0 K/mm3 06/13/21 06:34 Lymphocytes # (Manual) 1.0 K/mm3 (1.2-5.4) L 06/13/21 06:34 Abs React Lymphs (Man) 0.0 K/mm3 06/13/21 06:34 Monocytes # (Manual) 0.7 K/mm3 (0.0-0.8) 06/13/21 06:34 Eosinophils # (Manual) 0.1 K/mm3 (0.0-0.4) 06/13/21 06:34 Basophils # (Manual) 0.1 K/mm3 (0.0-0.1) 06/13/21 06:34 Metamyelocytes # 0.2 K/mm3 06/13/21 06:34 Myelocytes # 0.0 K/mm3 06/13/21 06:34 Promyelocytes # 0.0 K/mm3 06/13/21 06:34 Blast Cells # 0.0 K/mm3 06/13/21 06:34 WBC Morphology Not Reportable 06/13/21 06:34 Hypersegmented Neuts Not Reportable 06/13/21 06:34 Hyposegmented Neuts Not Reportable 06/13/21 06:34 Hypogranular Neuts Not Reportable 06/13/21 06:34 Smudge Cells Not Reportable 06/13/21 06:34 Toxic Granulation Not Reportable 06/13/21 06:34 Toxic Vacuolation Not Reportable 06/13/21 06:34 Dohle Bodies Not Reportable 06/13/21 06:34 Pelger-Huet Anomaly Not Reportable 06/13/21 06:34 Mellissa Rods Not Reportable 06/13/21 06:34 Platelet Estimate Consistent w auto 06/13/21 06:34 Clumped Platelets Not Reportable 06/13/21 06:34 Plt Clumps, EDTA Not Reportable 06/13/21 06:34 Large Platelets Not Reportable 06/13/21 06:34 Giant Platelets Not Reportable 06/13/21 06:34 Platelet Satelliting Not Reportable 06/13/21 06:34 Plt Morphology Comment Not Reportable 06/13/21 06:34 RBC Morphology Not Reportable 06/13/21 06:34 Dimorphic RBCs Not Reportable 06/13/21 06:34 Polychromasia Not Reportable 06/13/21 06:34 Hypochromasia Few 06/13/21 06:34 Poikilocytosis Not Reportable 06/13/21 06:34 Anisocytosis 1+ 06/13/21 06:34 Microcytosis Not Reportable 06/13/21 06:34 Macrocytosis Not Reportable 06/13/21 06:34 Spherocytes Not Reportable 06/13/21 06:34 Pappenheimer Bodies Not Reportable 06/13/21 06:34 Sickle Cells Not Reportable 06/13/21 06:34 Target Cells Not Reportable 06/13/21 06:34 Tear Drop Cells Not Reportable 06/13/21 06:34 Ovalocytes Not Reportable 06/13/21 06:34 Helmet Cells Not Reportable 06/13/21 06:34 [place] Bodies Not Reportable 06/13/21 06:34 Sunspot Rings Not Reportable 06/13/21 06:34 [place] Cells Not Reportable 06/13/21 06:34 Bite Cells Not Reportable 06/13/21 06:34 Crenated Cell Not Reportable 06/13/21 06:34 Elliptocytes Not Reportable 06/13/21 06:34 Acanthocytes (Spur) Not Reportable 06/13/21 06:34 Rouleaux Not Reportable 06/13/21 06:34 Hemoglobin C Crystals Not Reportable 06/13/21 06:34 Schistocytes Not Reportable 06/13/21 06:34 Malaria parasites Not Reportable 06/13/21 06:34 Carrillo Bodies Not Reportable 06/13/21 06:34 Hem Pathologist Commnt No 06/13/21 06:34 Sodium 146 mmol/L (137-145) H 06/13/21 06:34 Potassium 3.5 mmol/L (3.6-5.0) L 06/13/21 06:34 Chloride 112.4 mmol/L (98-107) H 06/13/21 06:34 Carbon Dioxide 20 mmol/L (22-30) L 06/13/21 06:34 Anion Gap 17 mmol/L 06/13/21 06:34 BUN 13 mg/dL (9-20) 06/13/21 06:34 Creatinine 0.9 mg/dL (0.8-1.3) 06/13/21 06:34 Estimated GFR > 60 ml/min 06/13/21 06:34 BUN/Creatinine Ratio 14 % 06/13/21 06:34 Glucose 92 mg/dL (75-100) 06/13/21 06:34 POC Glucose 96 mg/dL (70-105) 06/13/21 07:37 Hemoglobin A1c 5.9 % (4-6) 06/07/21 23:34 Calcium 8.3 mg/dL (8.4-10.2) L 06/13/21 06:34 Phosphorus 2.20 mg/dL (2.5-4.5) L 06/12/21 07:24 Magnesium 2.60 mg/dL (1.7-2.3) H 06/12/21 07:24 Total Bilirubin 0.40 mg/dL (0.1-1.2) 06/09/21 06:32 Direct Bilirubin 0.3 mg/dL (0-0.2) H 06/07/21 23:34 Indirect Bilirubin 0.6 mg/dL 06/07/21 23:34 AST 35 units/L (5-40) 06/09/21 06:32 ALT 45 units/L (7-56) 06/09/21 06:32 Alkaline Phosphatase 105 units/L (35-129) 06/09/21 06:32 Total Protein 6.7 g/dL (6.3-8.2) 06/09/21 06:32 Albumin 3.7 g/dL (3.9-5) L 06/09/21 06:32 Albumin/Globulin Ratio 1.2 % 06/09/21 06:32 Lipase 32 units/L (13-60) 06/07/21 23:34 Microbiology: Microbiology 06/08/21 01:33 Peripheral/Venous Blood Culture - Final NO GROWTH AFTER 5 DAYS 06/08/21 01:56 Peripheral/Venous Blood Culture - Final NO GROWTH AFTER 5 DAYS Arzola/IV: Voiding Method Urinal Active Medications - Current Medications Current Medications: Generic Name Dose Route Start Last Admin Trade Name Freq PRN Reason Stop Dose Admin Acetaminophen 650 mg 06/08/21 02:20 Acetaminophen 650 Mg Rect Supp [place] Q4H PRN Pain MILD(1-3)/Fever >100.5/SALINAS Amlodipine Besylate 5 mg 06/09/21 10:00 06/12/21 10:00 Amlodipine 5 Mg Tab PO Not Given DAILY KATERINA Dextrose 50 ml 06/08/21 02:20 Dextrose 50% In Water (25gm) 50 Ml Syringe IV Q30MIN PRN Hypoglycemia Protocol Famotidine 20 mg 06/11/21 22:00 06/12/21 21:10 Famotidine 20 Mg/2 Ml Inj IV 20 mg BID KATERINA Administration Fluoxetine HCl 20 mg 06/09/21 10:00 06/12/21 10:01 Fluoxetine 20 Mg Cap PO Not Given QDAY KATERINA Heparin Sodium (Porcine) 5,000 unit 06/09/21 10:00 06/12/21 21:10 Heparin 5,000 Unit/1 Ml Vial SUB-Q 5,000 unit Q12HR KATERINA Administration Hydralazine HCl 5 mg 06/10/21 02:00 Hydralazine 20 Mg/1 Ml Inj IV Q4H PRN Blood Pressure Hydromorphone HCl 0.5 mg 06/08/21 02:20 06/08/21 11:36 Hydromorphone 1 Mg/1 Ml Inj IV 0.5 mg Q3H PRN Administration Pain , Severe (7-10) Piperacillin Sod/Tazobactam Sod 4.5 gm in 100 mls @ 200 mls/hr 06/08/21 10:00 06/13/21 01:44 Zosyn/Ns 4.5gm/100ml IV 06/14/21 23:59 200 mls/hr Q8H KATERINA Administration Protocol Potassium Chloride/Dextrose/Sod Cl 20 meq in 1,000 mls @ 100 mls/hr 06/11/21 14:00 06/13/21 00:55 D5w/Ns W/Kcl 20meq IV 100 mls/hr DIRECT KATERINA Administration Insulin Human Lispro 0 unit 06/08/21 06:00 06/13/21 05:53 Insulin Lispro 100 Unit/Ml SUB-Q Not Given Q6HR [facility] Protocol Ketorolac Tromethamine 30 mg 06/08/21 14:00 06/13/21 05:51 Ketorolac 30 Mg/1 Ml Inj IV 06/13/21 13:59 30 mg Q8HR KATERINA Administration Lorazepam 1 mg 06/10/21 20:53 06/10/21 21:33 Lorazepam 2 Mg/Ml Vial IV 1 mg Q6H PRN Administration Anxiety Metformin HCl 500 mg 06/09/21 08:30 06/13/21 10:24 Metformin 500 Mg Tab PO Not Given BIDDIAB [facility] Miscellaneous Medication 200 mg 06/13/21 10:00 Clozapine (Nf) PO QAM [facility] Miscellaneous Medication 400 mg 06/13/21 22:00 Clozapine PO QHS [facility] Morphine Sulfate 2 mg 06/08/21 02:20 Morphine 2 Mg/1 Ml Inj IV Q4H PRN Pain, Moderate (4-6) Naloxone HCl 0.1 mg 06/08/21 02:20 Naloxone 0.4 Mg/1 Ml Inj IV Q2MIN PRN Res Rate </= 8 or 02 SAT < 92% Ondansetron HCl 4 mg 06/08/21 02:20 06/11/21 12:49 Ondansetron 4 Mg/2 Ml Inj IV 4 mg Q6H PRN Administration Nausea And Vomiting Scopolamine 1 each 06/10/21 14:19 06/10/21 17:55 Scopolamine Transdermal Patch 72 Hr TD 1 each Q3D KATERINA Administration Sodium Chloride 10 ml 06/08/21 10:00 06/12/21 21:11 Sodium Chloride 0.9% 10 Ml Flush Syringe IV 10 ml BID KATERINA Administration Sodium Chloride 10 ml 06/08/21 02:20 Sodium Chloride 0.9% 10 Ml Flush Syringe IV PRN PRN LINE FLUSH
[2021-06-13] MEDS: FAMOTIDINE 20 MG/2 ML INJ IV SCH ×2 (10:35→21:40)
[2021-06-13] MEDS: SCOPOLAMINE TRANSDERMAL PATCH 72 HR TD SCH (10:35)
[2021-06-13] MEDS: FLUoxetine 20 MG CAP PO SCH (10:35)
--- NOTE | 2021-06-13 12:47 | XRay Report ---
Abdomen single view INDICATION: Abdominal pain IMPRESSION: Multiple moderate to severely dilated loops of small bowel have not significantly changed in severity since 06/12/2021. No new findings. Signer Name: Tello Cabrera MD Signed: 06/13/2021 12:42 PM Workstation Name: [id number]
--- NOTE | 2021-06-13 15:45 | Progress Note ---
Assessment and Plan POD#5 status post laparoscopic appendectomy for gangrenous perforated appendicitis. Afebrile and stable. Patient has postop ileus that is clinically improving. Abdominal x-ray from today shows no improvement in bowel dilitation. Will do sips of clears. Encouraged regular ambulation. Subjective Date of service: 06/13/21 Narrative: No acute events overnight. Patient denies any abdominal pain nausea or vomiting. Patient says that he is ambulating a little bit. Patient also said he is been passing some flatus. Objective Vital Signs - 12hr 06/13/21 06/13/21 06/13/21 04:53 07:20 10:34 Temperature 98.0 F Pulse Rate 64 60 Respiratory 16 Rate Blood Pressure 161/83 156/90 O2 Sat by Pulse 97 95 Oximetry 06/13/21 12:17 Temperature 98.4 F Pulse Rate 68 Respiratory 18 Rate Blood Pressure 147/83 O2 Sat by Pulse 96 Oximetry - General physical appearance well developed, no distress, no pain, obese - ENT no hearing loss - Respiratory normal expansion, normal respiratory effort - Abdomen soft, distended, other (incisions c/d/i, ABBEY drain serous, appropriatley tender to palpation) - Labs 06/13/21 06:34 06/13/21 06:34 Diabetes panel 06/13/21 Range/Units 06:34 Sodium 146 H (137-145) mmol/L Potassium 3.5 L (3.6-5.0) mmol/L Chloride 112.4 H (98-107) mmol/L Carbon Dioxide 20 L (22-30) mmol/L BUN 13 (9-20) mg/dL Creatinine 0.9 (0.8-1.3) mg/dL Glucose 92 (75-100) mg/dL Calcium 8.3 L (8.4-10.2) mg/dL Calcium panel 06/13/21 Range/Units 06:34 Calcium 8.3 L (8.4-10.2) mg/dL Pituitary panel 06/13/21 Range/Units 06:34 Sodium 146 H (137-145) mmol/L Potassium 3.5 L (3.6-5.0) mmol/L Chloride 112.4 H (98-107) mmol/L Carbon Dioxide 20 L (22-30) mmol/L BUN 13 (9-20) mg/dL Creatinine 0.9 (0.8-1.3) mg/dL Glucose 92 (75-100) mg/dL Calcium 8.3 L (8.4-10.2) mg/dL Adrenal panel 06/13/21 Range/Units 06:34 Sodium 146 H (137-145) mmol/L Potassium 3.5 L (3.6-5.0) mmol/L Chloride 112.4 H (98-107) mmol/L Carbon Dioxide 20 L (22-30) mmol/L BUN 13 (9-20) mg/dL Creatinine 0.9 (0.8-1.3) mg/dL Glucose 92 (75-100) mg/dL Calcium 8.3 L (8.4-10.2) mg/dL
[2021-06-14] MEDS: INSULIN LISPRO 100 UNIT/ML SUB-Q SCH ×4 (01:36→18:07)
[2021-06-14] MEDS: PIPERACIL/TAZOBACTA 4.5/NS 100 4.5 GM/100 ML VIAL IV SCH ×3 (01:42→17:26)
[2021-06-14] MEDS: FAMOTIDINE 20 MG/2 ML INJ IV SCH (09:36)
[2021-06-14] MEDS: metFORMIN 500 MG TAB PO SCH ×2 (09:36→17:25)
[2021-06-14] MEDS: amLODIPine 5 MG TAB PO SCH (09:36)
[2021-06-14] MEDS: HEPARIN 5,000 UNIT/1 ML VIAL SUB-Q SCH ×2 (09:36→21:40)
[2021-06-14] MEDS: CLOZAPINE 100 MG PO SCH ×3 (09:43→21:41)
[2021-06-14] MEDS: FLUoxetine 20 MG CAP PO SCH ×2 (09:43→12:10)
[2021-06-14] MEDS: HYDROmorphone 1 MG/1 ML INJ IV PRN (12:11)
--- NOTE | 2021-06-14 14:53 | Progress Note ---
Assessment and Plan Assessment and plan: 51-year-old male with a history of diabetes and hypertension schizophrenia admitted to the emergency room with a 3 to 4-day of abdominal pain. Pain localized to the right lower quadrant and supra pubic area. Patient had some fever with nausea but no vomiting. Patient had a CT scan that showed appendic itis with a small amount of focal free air suggestive of a contained perforation. The patient was admitted with diagnosis of sepsis, acute appendicitis, right kidney mass, diabetes mellitus type 2, bipolar disorder, schizophrenia, hypertension. The patient was seen by surgery and underwent laparoscopic appendectomy for a gangrenous perforated acute appendicitis. The patient also has urology consultation for the incidental findings suggestive of RCC. Gangrenous perforated acute appendicitis s/p laparoscopic appendectomy Sepsis. Patient meets criteria given the leukocytosis, tachycardia and diagnosis of appendicitis. Renal mass likely secondary to renal cell carcinoma Acute kidney injury. Etiology likely secondary to vasomotor nephropathy +/- sepsis/ATN Diabetes mellitus type 2 Bipolar disorder Schizophrenia Ileus is suspected following surgery Hypertension 06/09/2021. Continue IV antibiotics for now. Surgery following. Follow-up blood cultures. Continue SSRI, Glucophage and Accu-Cheks. Tight glycemic control. Advance diet as tolerated. Urology consultation pending. Norvas for BP 06/10/2021. Patient with episode of nausea and vomiting this morning. Continue Zofran as needed and add Reglan 10 mg IV every 6 hours. Blood cultures with no growth to date x2 days. Consider discharge today if nausea and vomiting resolves. If vomiting does not improve, check KUB to rule out ileus. 06/11/2021. Patient is POD#3 s/p lap appy for perforated appendicitis. KUB is suggestive postoperative ileus. Continue NGT to low intermittent suction. Continue IV fluid hydration and n.p.o. status. Continue pain control and antiemetics for N/V. Continue mobility/ambulation protocols. 06/12/2021. Follow-up KUB this a.m. KUB from yesterday showed no change in postoperative ileus. Continue n.p.o. status and advance diet per surgery recommendations. NGT to low intermittent suction. Creatinine was slightly elevated yesterday 1.4. Continue IV fluid hydration. Recheck BMP today 06/13: Patient remains clinically stable although a bit confused about bowel activity. KUB today shows mild improvement. ABBEY drain still in place and with output. Awaiting surgery evaluation there is documentation of BM yesterday. Leukocytosis is resolved. Discharge plan will be per surgeon. Requested outpatient to chair today. 06/14: Continue supportive care. Patient still with mild postoperative ileus encourage ambulation today. Anticipate discharge in a.m.. KUB reviewed in detail. History Interval history: Patient seen and examined resting comfortably drain still in place with output. Hospitalist Physical - Physical exam Narrative exam: VITAL SIGNS: Reviewed. GENERAL: The patient appears normally developed, obese, lethargic vital signs as documented. HEAD: No signs of head trauma. EYES: Pupils are equal. Extraocular motions intact. EARS: Hearing grossly intact. MOUTH: Oropharynx is normal. NECK: No adenopathy, no JVD. CHEST: Chest with clear breath sounds bilaterally. No wheezes, rales, or rhonchi. CARDIAC: Regular rate and rhythm. S1 and S2, without murmurs, gallops, or rubs. VASCULAR: No Edema. Peripheral pulses normal and equal in all extremities. ABDOMEN: Soft, distended hypoactive bowel sounds ABBEY drain is in place. No rebound or guarding, and no masses palpated. MUSCULOSKELETAL: Good range of motion of all major joints. Extremities without clubbing, cyanosis or edema. NEUROLOGIC EXAM: Alert and oriented x 3 No focal sensory or strength deficits. Speech normal. Follows commands. PSYCHIATRIC: Mood normal. SKIN: detail exam as documented in skin assessment - Constitutional Vitals: Temp Pulse Resp BP Pulse Ox 98.0 F 80 18 148/96 95 06/14/21 12:20 06/14/21 12:20 06/14/21 12:20 06/14/21 12:20 06/14/21 12:20 General appearance: Present: no acute distress, well-nourished Results - Labs CBC & Chem 7: 06/13/21 06:34 06/13/21 06:34 Labs: Laboratory Last Values WBC 6.5 K/mm3 (4.5-11.0) 06/13/21 06:34 RBC 4.69 M/mm3 (3.65-5.03) 06/13/21 06:34 Hgb 11.4 gm/dl (11.8-15.2) L 06/13/21 06:34 Hct 35.1 % (35.5-45.6) L 06/13/21 06:34 MCV 75 fl (84-94) L 06/13/21 06:34 MCH 24 pg (28-32) L 06/13/21 06:34 MCHC 33 % (32-34) 06/13/21 06:34 RDW 14.8 % (13.2-15.2) 06/13/21 06:34 Plt Count 215 K/mm3 (140-440) 06/13/21 06:34 Lymph % (Auto) 6.4 % (13.4-35.0) L 06/11/21 04:51 [place] % (Auto) 9.2 % (0.0-7.3) H 06/11/21 04:51 Eos % (Auto) 3.2 % (0.0-4.3) 06/11/21 04:51 Baso % (Auto) 0.7 % (0.0-1.8) 06/11/21 04:51 Lymph # (Auto) 0.3 K/mm3 (1.2-5.4) L 06/11/21 04:51 [place] # (Auto) 0.4 K/mm3 (0.0-0.8) 06/11/21 04:51 Eos # (Auto) 0.1 K/mm3 (0.0-0.4) 06/11/21 04:51 Baso # (Auto) 0.0 K/mm3 (0.0-0.1) 06/11/21 04:51 Add Manual Diff Complete 06/13/21 06:34 Total Counted 100 06/13/21 06:34 Seg Neutrophils % 80.5 % (40.0-70.0) H 06/11/21 04:51 Seg Neuts % (Manual) 69.0 % (40.0-70.0) 06/13/21 06:34 Band Neutrophils % 14.0 % 06/09/21 06:32 Lymphocytes % (Manual) 16.0 % (13.4-35.0) 06/13/21 06:34 Reactive Lymphs % (Man) 1.0 % 06/09/21 06:32 Monocytes % (Manual) 10.0 % (0.0-7.3) H 06/13/21 06:34 Eosinophils % (Manual) 1.0 % (0.0-4.3) 06/13/21 06:34 Basophils % (Manual) 1.0 % (0.0-1.8) 06/13/21 06:34 Metamyelocytes % 3.0 % 06/13/21 06:34 Nucleated RBC % Not Reportable 06/13/21 06:34 Seg Neutrophils # 3.7 K/mm3 (1.8-7.7) 06/11/21 04:51 Seg Neutrophils # Man 4.5 K/mm3 (1.8-7.7) 06/13/21 06:34 Band Neutrophils # 0.0 K/mm3 06/13/21 06:34 Lymphocytes # (Manual) 1.0 K/mm3 (1.2-5.4) L 06/13/21 06:34 Abs React Lymphs (Man) 0.0 K/mm3 06/13/21 06:34 Monocytes # (Manual) 0.7 K/mm3 (0.0-0.8) 06/13/21 06:34 Eosinophils # (Manual) 0.1 K/mm3 (0.0-0.4) 06/13/21 06:34 Basophils # (Manual) 0.1 K/mm3 (0.0-0.1) 06/13/21 06:34 Metamyelocytes # 0.2 K/mm3 06/13/21 06:34 Myelocytes # 0.0 K/mm3 06/13/21 06:34 Promyelocytes # 0.0 K/mm3 06/13/21 06:34 Blast Cells # 0.0 K/mm3 06/13/21 06:34 WBC Morphology Not Reportable 06/13/21 06:34 Hypersegmented Neuts Not Reportable 06/13/21 06:34 Hyposegmented Neuts Not Reportable 06/13/21 06:34 Hypogranular Neuts Not Reportable 06/13/21 06:34 Smudge Cells Not Reportable 06/13/21 06:34 Toxic Granulation Not Reportable 06/13/21 06:34 Toxic Vacuolation Not Reportable 06/13/21 06:34 Dohle Bodies Not Reportable 06/13/21 06:34 Pelger-Huet Anomaly Not Reportable 06/13/21 06:34 Mellissa Rods Not Reportable 06/13/21 06:34 Platelet Estimate Consistent w auto 06/13/21 06:34 Clumped Platelets Not Reportable 06/13/21 06:34 Plt Clumps, EDTA Not Reportable 06/13/21 06:34 Large Platelets Not Reportable 06/13/21 06:34 Giant Platelets Not Reportable 06/13/21 06:34 Platelet Satelliting Not Reportable 06/13/21 06:34 Plt Morphology Comment Not Reportable 06/13/21 06:34 RBC Morphology Not Reportable 06/13/21 06:34 Dimorphic RBCs Not Reportable 06/13/21 06:34 Polychromasia Not Reportable 06/13/21 06:34 Hypochromasia Few 06/13/21 06:34 Poikilocytosis Not Reportable 06/13/21 06:34 Anisocytosis 1+ 06/13/21 06:34 Microcytosis Not Reportable 06/13/21 06:34 Macrocytosis Not Reportable 06/13/21 06:34 Spherocytes Not Reportable 06/13/21 06:34 Pappenheimer Bodies Not Reportable 06/13/21 06:34 Sickle Cells Not Reportable 06/13/21 06:34 Target Cells Not Reportable 06/13/21 06:34 Tear Drop Cells Not Reportable 06/13/21 06:34 Ovalocytes Not Reportable 06/13/21 06:34 Helmet Cells Not Reportable 06/13/21 06:34 [place] Bodies Not Reportable 06/13/21 06:34 Royal Rings Not Reportable 06/13/21 06:34 Nash Cells Not Reportable 06/13/21 06:34 Bite Cells Not Reportable 06/13/21 06:34 Crenated Cell Not Reportable 06/13/21 06:34 Elliptocytes Not Reportable 06/13/21 06:34 Acanthocytes (Spur) Not Reportable 06/13/21 06:34 Rouleaux Not Reportable 06/13/21 06:34 Hemoglobin C Crystals Not Reportable 06/13/21 06:34 Schistocytes Not Reportable 06/13/21 06:34 Malaria parasites Not Reportable 06/13/21 06:34 Carrillo Bodies Not Reportable 06/13/21 06:34 Hem Pathologist Commnt No 06/13/21 06:34 Sodium 146 mmol/L (137-145) H 06/13/21 06:34 Potassium 3.5 mmol/L (3.6-5.0) L 06/13/21 06:34 Chloride 112.4 mmol/L (98-107) H 06/13/21 06:34 Carbon Dioxide 20 mmol/L (22-30) L 06/13/21 06:34 Anion Gap 17 mmol/L 06/13/21 06:34 BUN 13 mg/dL (9-20) 06/13/21 06:34 Creatinine 0.9 mg/dL (0.8-1.3) 06/13/21 06:34 Estimated GFR > 60 ml/min 06/13/21 06:34 BUN/Creatinine Ratio 14 % 06/13/21 06:34 Glucose 92 mg/dL (75-100) 06/13/21 06:34 POC Glucose 140 mg/dL (70-105) H 06/14/21 11:27 Hemoglobin A1c 5.9 % (4-6) 06/07/21 23:34 Calcium 8.3 mg/dL (8.4-10.2) L 06/13/21 06:34 Phosphorus 2.20 mg/dL (2.5-4.5) L 06/12/21 07:24 Magnesium 2.60 mg/dL (1.7-2.3) H 06/12/21 07:24 Total Bilirubin 0.40 mg/dL (0.1-1.2) 06/09/21 06:32 Direct Bilirubin 0.3 mg/dL (0-0.2) H 06/07/21 23:34 Indirect Bilirubin 0.6 mg/dL 06/07/21 23:34 AST 35 units/L (5-40) 06/09/21 06:32 ALT 45 units/L (7-56) 06/09/21 06:32 Alkaline Phosphatase 105 units/L (35-129) 06/09/21 06:32 Total Protein 6.7 g/dL (6.3-8.2) 06/09/21 06:32 Albumin 3.7 g/dL (3.9-5) L 06/09/21 06:32 Albumin/Globulin Ratio 1.2 % 06/09/21 06:32 Lipase 32 units/L (13-60) 06/07/21 23:34 Arzola/IV: Voiding Method Toilet Active Medications - Current Medications Current Medications: Generic Name Dose Route Start Last Admin Trade Name Freq PRN Reason Stop Dose Admin Acetaminophen 650 mg 06/08/21 02:20 Acetaminophen 650 Mg Rect Supp [place] Q4H PRN Pain MILD(1-3)/Fever >100.5/SALINAS Amlodipine Besylate 5 mg 06/09/21 10:00 06/14/21 09:36 Amlodipine 5 Mg Tab PO 5 mg DAILY KATERINA Administration Bisacodyl 10 mg 06/13/21 14:00 06/14/21 09:43 Bisacodyl 10 Mg Rect Supp IL Not Given QDAY KATERINA Dextrose 50 ml 06/08/21 02:20 Dextrose 50% In Water (25gm) 50 Ml Syringe IV Q30MIN PRN Hypoglycemia Protocol Famotidine 20 mg 06/14/21 22:00 Famotidine 20 Mg Tab PO BID KATERINA Fluoxetine HCl 20 mg 06/09/21 10:00 06/14/21 12:10 Fluoxetine 20 Mg Cap PO 20 mg QDAY KATERINA Administration Heparin Sodium (Porcine) 5,000 unit 06/09/21 10:00 06/14/21 09:36 Heparin 5,000 Unit/1 Ml Vial SUB-Q 5,000 unit Q12HR KATERINA Administration Hydralazine HCl 5 mg 06/10/21 02:00 Hydralazine 20 Mg/1 Ml Inj IV Q4H PRN Blood Pressure Hydromorphone HCl 0.5 mg 06/08/21 02:20 06/14/21 12:11 Hydromorphone 1 Mg/1 Ml Inj IV 0.5 mg Q3H PRN Administration Pain , Severe (7-10) Potassium Chloride/Dextrose/Sod Cl 20 meq in 1,000 mls @ 100 mls/hr 06/11/21 14:00 06/13/21 22:04 D5w/Ns W/Kcl 20meq IV 100 mls/hr DIRECT KATERINA Administration Piperacillin Sod/Tazobactam Sod 4.5 gm in 100 mls @ 200 mls/hr 06/14/21 10:00 06/14/21 09:36 Zosyn/Ns 4.5gm/100ml IV 06/14/21 23:59 200 mls/hr Q8H KATERINA Administration Insulin Human Lispro 0 unit 06/08/21 06:00 06/14/21 12:48 Insulin Lispro 100 Unit/Ml SUB-Q Not Given Q6HR [facility] Protocol Lorazepam 1 mg 06/10/21 20:53 06/10/21 21:33 Lorazepam 2 Mg/Ml Vial IV 1 mg Q6H PRN Administration Anxiety Metformin HCl 500 mg 06/09/21 08:30 06/14/21 09:36 Metformin 500 Mg Tab PO 500 mg BIDDIAB KATERINA Administration Miscellaneous Medication 200 mg 06/13/21 10:00 06/14/21 12:12 Clozapine (Nf) PO 200 mg QAM KATERINA Administration Miscellaneous Medication 400 mg 06/13/21 22:00 06/13/21 21:41 Clozapine PO 400 mg QHS KATERINA Administration Morphine Sulfate 2 mg 06/08/21 02:20 Morphine 2 Mg/1 Ml Inj IV Q4H PRN Pain, Moderate (4-6) Naloxone HCl 0.1 mg 06/08/21 02:20 Naloxone 0.4 Mg/1 Ml Inj IV Q2MIN PRN Res Rate </= 8 or 02 SAT < 92% Ondansetron HCl 4 mg 06/08/21 02:20 06/11/21 12:49 Ondansetron 4 Mg/2 Ml Inj IV 4 mg Q6H PRN Administration Nausea And Vomiting Scopolamine 1 each 06/10/21 14:19 06/13/21 10:35 Scopolamine Transdermal Patch 72 Hr TD 1 each Q3D KATERINA Administration Sodium Chloride 10 ml 06/08/21 10:00 06/14/21 09:37 Sodium Chloride 0.9% 10 Ml Flush Syringe IV 10 ml BID KATERINA Administration Sodium Chloride 10 ml 06/08/21 02:20 Sodium Chloride 0.9% 10 Ml Flush Syringe IV PRN PRN LINE FLUSH
--- NOTE | 2021-06-14 17:21 | Progress Note ---
Assessment and Plan POD#6 status post laparoscopic appendectomy for gangrenous perforated appendicitis. Afebrile and stable. Patient has postop ileus that is clinically improving. will get abdominal x-ray in am. if improved and continues to tolerate diet possible to discharge tomorrow. Subjective Date of service: 06/14/21 Narrative: no acute events overnight. Pt started on full liquids and tolerating well with no nausea or vomiting. Pt is passing gas and having bowel movements. Objective Vital Signs - 12hr 06/14/21 06/14/21 06/14/21 08:18 12:20 12:41 Temperature 98.0 F Pulse Rate 80 Respiratory 18 18 Rate Blood Pressure 148/96 O2 Sat by Pulse 98 95 Oximetry - General physical appearance well developed, no distress, no pain, obese - Respiratory normal expansion, normal respiratory effort - Abdomen soft, not tender, distended, other (incisions c/d/i) - Labs 06/13/21 06:34 06/13/21 06:34
[2021-06-14] MEDS: FAMOTIDINE 20 MG TAB PO SCH (21:40)
[2021-06-15] MEDS: INSULIN LISPRO 100 UNIT/ML SUB-Q SCH ×4 (00:44→18:25)
[2021-06-15] MEDS: LORazepam 2 MG/ML VIAL IV PRN (06:43)
--- NOTE | 2021-06-15 07:37 | Discharge Summary ---
Providers - Providers Date of Admission: 06/08/21 01:48 Attending physician: MARIAH BOLANOS MD 06/08/21 04:04 Consult to Physician [CONS] Stat Comment: Consulting Provider: PEPE MCCOY Physician Instructions: Reason For Exam: Acute appendicitis 06/10/21 14:19 Physical Therapy Evaluation and Treat [CONS] Routine Comment: Reason For Exam: post op, deconditioning, weakeness Primary care physician: LEGAL COUNSEL Hospitalization Condition: Stable Hospital course: 51-year-old male with a history of diabetes and hypertension schizophrenia admitted to the emergency room with a 3 to 4-day of abdominal pain. Pain localized to the right lower quadrant and supra pubic area. Patient had some fever with nausea but no vomiting. Patient had a CT scan that showed appendicitis with a small amount of focal free air suggestive of a contained perforation. The patient was admitted with diagnosis of sepsis, acute appendicitis, right kidney mass, diabetes mellitus type 2, bipolar disorder, schizophrenia, hypertension. The patient was seen by surgery and underwent laparoscopic appendectomy for a gangrenous perforated acute appendicitis. The patient also has urology consultation for the incidental findings suggestive of RCC. Gangrenous perforated acute appendicitis s/p laparoscopic appendectomy Sepsis. Patient meets criteria given the leukocytosis, tachycardia and diagnosis of appendicitis. Renal mass likely secondary to renal cell carcinoma Acute kidney injury. Etiology likely secondary to vasomotor nephropathy +/- sepsis/ATN Diabetes mellitus type 2 Bipolar disorder Schizophrenia Ileus is suspected following surgery Hypertension 06/09/2021. Continue IV antibiotics for now. Surgery following. Follow-up blood cultures. Continue SSRI, Glucophage and Accu-Cheks. Tight glycemic control. Advance diet as tolerated. Urology consultation pending. Norvas for BP 06/10/2021. Patient with episode of nausea and vomiting this morning. Continue Zofran as needed and add Reglan 10 mg IV every 6 hours. Blood cultures with no growth to date x2 days. Consider discharge today if nausea and vomiting resolves. If vomiting does not improve, check KUB to rule out ileus. 06/11/2021. Patient is POD#3 s/p lap appy for perforated appendicitis. KUB is suggestive postoperative ileus. Continue NGT to low intermittent suction. Continue IV fluid hydration and n.p.o. status. Continue pain control and antiemetics for N/V. Continue mobility/ambulation protocols. 06/12/2021. Follow-up KUB this a.m. KUB from yesterday showed no change in postoperative ileus. Continue n.p.o. status and advance diet per surgery recommendations. NGT to low intermittent suction. Creatinine was slightly elevated yesterday 1.4. Continue IV fluid hydration. Recheck BMP today 06/13: Patient remains clinically stable although a bit confused about bowel activity. KUB today shows mild improvement. ABBEY drain still in place and with output. Awaiting surgery evaluation there is documentation of BM yesterday. Leukocytosis is resolved. Discharge plan will be per surgeon. Requested outpatient to chair today. 06/14: Continue supportive care. Patient still with mild postoperative ileus encourage ambulation today. Anticipate discharge in a.m.. KUB reviewed in detail. Disposition: HOME / SELF CARE / HOMELESS Core Measure Documentation - Palliative Care Palliative Care/ Comfort Measures: Not Applicable Exam - Constitutional Vitals: Temp Pulse Resp BP Pulse Ox 98.0 F 116 H 18 149/93 96 06/15/21 04:33 06/15/21 04:33 06/15/21 04:33 06/15/21 04:33 06/15/21 04:33 Plan Activity: advance as tolerated, fall precautions Diet: low fat (GI SOFT) Special Instructions: record daily weights, record daily BP diary, physical therapy Care Plan Goals: ALSO FOLLOW WITH PSYCH Follow up with: PEPE MCCOY MD [Staff Physician] - 7 Days JG PARKS MD [Staff Physician] - 7 Days PRIMARY CARE, [Primary Care Provider] - 3-5 Days Prescriptions: amLODIPine 5 mg PO DAILY #30 Amoxicillin/Potassium Clav [Augmentin 875-125 Tablet] 1 each PO BID #10 tablet bisacodyL [Dulcolax suppos] 10 mg MT QDAY #14 supp.rect metFORMIN [Glucophage] 500 mg PO BID #60 Famotidine [Pepcid] 20 mg PO BID #60 tablet FLUoxetine [PROzac] 20 mg PO QDAY #14 capsule Other Discharge Orders: Physicial Therapy (Amb) Location: None Selected
--- NOTE | 2021-06-15 08:55 | XRay Report ---
ABDOMEN 1 VIEW 06/15/2021 7:34 AM INDICATION / CLINICAL INFORMATION: f/u ileus. Abdomen 3 views INDICATION: Follow-up ileus COMPARISON: 06/13/2021 findings: Dilated bowel loops are seen throughout the mid abdomen. Some of the se dilated small bowel loops may be slightly increased measuring up to 7 cm. There is some gas within the colon which is better seen on today's examination. Signer Name: Maverick Michaud MD Signed: 06/15/2021 8:51 AM Workstation Name: [id number]
[2021-06-15] MEDS: metFORMIN 500 MG TAB PO SCH ×2 (09:07→18:25)
[2021-06-15 10:01] LABS: Hematocrit 37.9 % (35.5-45.6); Hemoglobin 12.3 gm/dl (11.8-15.2); Mean Corpuscular HGB Conc 32 % (32-34); Mean Corpuscular Volume 75 fl (84-94); Platelet Count 236 K/mm3 (140-440); Red Blood Count 5.08 M/mm3 (3.65-5.03); Red Cell Distribution Width 14.8 % (13.2-15.2)
[2021-06-15] MEDS: amLODIPine 5 MG TAB PO SCH (10:50)
[2021-06-15] MEDS: FAMOTIDINE 20 MG TAB PO SCH ×2 (10:51→21:55)
[2021-06-15] MEDS: FLUoxetine 20 MG CAP PO SCH (10:51)
[2021-06-15] MEDS: HEPARIN 5,000 UNIT/1 ML VIAL SUB-Q SCH ×2 (10:51→21:55)
[2021-06-15] MEDS: CLOZAPINE 100 MG PO SCH ×2 (10:51→21:57)
--- NOTE | 2021-06-15 10:51 | XRay Report ---
CHEST 1 VIEW 06/15/2021 10:14 AM INDICATION / CLINICAL INFORMATION: shortness of breath. COMPARISON: None available. FINDINGS: SUPPORT DEVICES: None. HEART / MEDIASTINUM: No significant abnormality. LUNGS / PLEURA: No significant pulmonary or pleural abnormality. No pneumothorax. ADDITIONAL FINDINGS: No significant additional findings. IMPRESSION: 1. No acute findings. Signer Name: Maverick Michaud MD Signed: 06/15/2021 10:46 AM Workstation Name: [id number]
--- NOTE | 2021-06-15 11:03 | Discharge Summary ---
Providers - Providers Date of Admission: 06/08/21 01:48 Attending physician: MARIAH BOLANOS MD 06/08/21 04:04 Consult to Physician [CONS] Stat Comment: Consulting Provider: PEPE MCCOY Physician Instructions: Reason For Exam: Acute appendicitis 06/10/21 14:19 Physical Therapy Evaluation and Treat [CONS] Routine Comment: Reason For Exam: post op, deconditioning, weakeness Primary care physician: [facility] [facility] Hospitalization Reason for admission: Sepsis Condition: Stable Hospital course: 51-year-old male with a history of diabetes and hypertension schizophrenia admitted to the emergency room with a 3 to 4-day of abdominal pain. Pain localized to the right lower quadrant and supra pubic area. Patient had some fever with nausea but no vomiting. Patient had a CT scan that showed appendicitis with a small amount of focal free air suggestive of a contained perforation. The patient was admitted with diagnosis of sepsis, acute appendicitis, right kidney mass, diabetes mellitus type 2, bipolar disorder, schizophrenia, hypertension. The patient was seen by surgery and underwent laparoscopic appendectomy for a gangrenous perforated acute appendicitis. The patient also has urology consultation for the incidental findings suggestive of RCC. Gangrenous perforated acute appendicitis s/p laparoscopic appendectomy Sepsis. Patient meets criteria given the leukocytosis, tachycardia and diagnosis of appendicitis. Renal mass likely secondary to renal cell carcinoma Acute kidney injury. Etiology likely secondary to vasomotor nephropathy +/- sepsis/ATN Diabetes mellitus type 2 Bipolar disorder Schizophrenia Ileus is suspected following surgery Hypertension 06/09/2021. Continue IV antibiotics for now. Surgery following. Follow-up blood cultures. Continue SSRI, Glucophage and Accu-Cheks. Tight glycemic control. Advance diet as tolerated. [facility] Patient with episode of nausea and vomiting this morning. Continue Zofran as needed and add Reglan 10 mg IV every 6 hours. Blood cultures with no growth to date x2 days. Consider discharge today if nausea and vomiting resolves. If vomiting does not improve, check KUB to rule out ileus. 06/11/2021. Patient is POD#3 s/p lap appy for perforated appendicitis. KUB is suggestive postoperative ileus. Continue NGT to low intermittent suction. Continue IV fluid hydration and n.p.o. status. Continue pain control and antiemetics for N/V. Continue mobility/ambulation protocols. 06/12/2021. Follow-up KUB this a.m. KUB from yesterday showed no change in postoperative ileus. Continue n.p.o. status and advance diet per surgery recommendations. NGT to low intermittent suction. Creatinine was slightly elevated yesterday 1.4. Continue IV fluid hydration. Recheck BMP today 06/13: Patient remains clinically stable although a bit confused about bowel activity. KUB today shows mild improvement. ABBEY drain still in place and with output. Awaiting surgery evaluation there is documentation of BM yesterday. Leukocytosis is resolved. Discharge plan will be per surgeon. Requested outpatient to chair today. 06/14: Continue supportive care. Patient still with mild postoperative ileus encourage ambulation today. Anticipate discharge in a.m.. KUB reviewed in detail. 06/15: Patient seen and clinically stable no acute distress this morning was a bit drowsy but not improved. We will keep him on full liquid diet at least a week and then adjust to GI soft for another week until he sees the surgeon this has been explained to the patient. He is to continue to follow with his psychiatry physician. Disposition: HOME / SELF CARE / HOMELESS Final Discharge Diagnosis (Prints w/discharge instructions): Sepsis secondary to gangrenous perforated acute appendicitis Time spent for discharge: 35 minutes Core Measure Documentation - Palliative Care Palliative Care/ Comfort Measures: Not Applicable - Core Measures Any of the following diagnoses?: none Exam - Physical Exam Narrative exam: VITAL SIGNS: Reviewed. GENERAL: The patient appears normally developed, obese, lethargic vital signs as documented. HEAD: No signs of head trauma. EYES: Pupils are equal. Extraocular motions intact. EARS: Hearing grossly intact. MOUTH: Oropharynx is normal. NECK: No adenopathy, no JVD. CHEST: Chest with clear breath sounds bilaterally. No wheezes, rales, or rhonchi. CARDIAC: Regular rate and rhythm. S1 and S2, without murmurs, gallops, or rubs. VASCULAR: No Edema. Peripheral pulses normal and equal in all extremities. ABDOMEN: Soft, distended hypoactive bowel sounds ABBEY drain is in place. No rebound or guarding, and no masses palpated. MUSCULOSKELETAL: Good range of motion of all major joints. Extremities without clubbing, cyanosis or edema. NEUROLOGIC EXAM: Alert and oriented x 3 No focal sensory or strength deficits. Speech normal. Follows commands. PSYCHIATRIC: Mood normal. SKIN: detail exam as documented in skin assessment - Constitutional Vitals: Temp Pulse Resp BP Pulse Ox 98.0 F 100 H 18 145/93 96 06/15/21 04:33 06/15/21 10:50 06/15/21 04:33 06/15/21 10:50 06/15/21 04:33 Plan Activity: advance as tolerated, fall precautions Diet: other (full liquid diet x 1 week then GI soft diet x 1 week until seen by surgeon) Special Instructions: record daily weights, record daily BP diary Care Plan Goals: ALSO FOLLOW WITH PSYCH Follow up with: PEPE MCCOY MD [Staff Physician] - 7 Days JG PARKS MD [Staff Physician] - 7 Days PRIMARY CARE, [Primary Care Provider] - 3-5 Days Prescriptions: amLODIPine 5 mg PO DAILY #30 Amoxicillin/Potassium Clav [Augmentin 875-125 Tablet] 1 each PO BID #10 tablet bisacodyL [Dulcolax suppos] 10 mg GA QDAY #14 supp.rect metFORMIN [Glucophage] 500 mg PO BID #60 Famotidine [Pepcid] 20 mg PO BID #60 tablet FLUoxetine [PROzac] 20 mg PO QDAY #14 capsule Other Discharge Orders: Physicial Therapy (Amb) Location: None Selected
--- NOTE | 2021-06-15 11:04 | Progress Note ---
Assessment and Plan POD#7 status post laparoscopic appendectomy for gangrenous perforated appendicitis. Afebrile and stable. Patient has postop ileus that is clinically improving. Okay to discharge patient today, encourage patient to remain on full liquids/soft diet for least another week since his x-ray this morning still showed dilated small bowel diffusely. However he did have more air in his colon. Patient to see me in the office in 2 weeks for follow-up. Subjective Date of service: 06/15/21 Narrative: No acute events overnight. Patient says that he has been having bowel movements and passing gas. He been tolerating full liquids and soft diet without any nausea or vomiting. Patient says that he felt little short of breath last night but is currently feeling better and walking with physical therapy. Objective Vital Signs - 12hr 06/15/21 06/15/21 04:33 10:50 Temperature 98.0 F Pulse Rate 116 H 100 H Respiratory 18 Rate Blood Pressure 149/93 145/93 O2 Sat by Pulse 96 Oximetry - General physical appearance well developed, no distress, no pain, obese - Eyes PERRL - ENT no hearing loss - Respiratory normal expansion, normal respiratory effort - Abdomen soft, not tender, distended - Labs 06/15/21 09:48 06/13/21 06:34
[2021-06-15 11:39] LABS: Band Neutrophils # (Manual) 0.1 K/mm3; Myelocytes # (Manual) 0.1 K/mm3; Total Cells Counted 100
[2021-06-15 11:55] LABS: Hypochromasia 1+; Platelet Estimate Consistent w Auto
[2021-06-15] MEDS: D5NS W/KCL 20 MEQ 20 MEQ/1,000 ML BAG IV SCH (22:09)
[2021-06-16] MEDS: INSULIN LISPRO 100 UNIT/ML SUB-Q SCH ×3 (00:27→12:00)
[2021-06-16] MEDS: LORazepam 2 MG/ML VIAL IV PRN (01:39)
--- NOTE | 2021-06-16 08:53 | Discharge Summary ---
Providers - Providers Date of Admission: 06/08/21 01:48 Attending physician: MARIAH BOLANOS MD 06/08/21 04:04 Consult to Physician [CONS] Stat Comment: Consulting Provider: PEPE MCCOY Physician Instructions: Reason For Exam: Acute appendicitis 06/10/21 14:19 Physical Therapy Evaluation and Treat [CONS] Routine Comment: Reason For Exam: post op, deconditioning, weakeness Primary care physician: [facility] Hospitalization Reason for admission: abdominal pain Condition: Stable Hospital course: 51-year-old male with a history of diabetes and hypertension schizophrenia admitted to the emergency room with a 3 to 4-day of abdominal pain. Pain localized to the right lower quadrant and supra pubic area. Patient had some fever with nausea but no vomiting. Patient had a CT scan that showed appendicitis with a small amount of focal free air suggestive of a contained perforation. The patient was admitted with diagnosis of sepsis, acute appendicitis, right kidney mass, diabetes mellitus type 2, bipolar disorder, schizophrenia, hypertension. The patient was seen by surgery and underwent laparoscopic appendectomy for a gangrenous perforated acute appendicitis. The patient also has urology consultation for the incidental findings suggestive of RCC. Gangrenous perforated acute appendicitis s/p laparoscopic appendectomy Sepsis. Patient meets criteria given the leukocytosis, tachycardia and diagnosis of appendicitis. Renal mass likely secondary to renal cell carcinoma Acute kidney injury. Etiology likely secondary to vasomotor nephropathy +/- sepsis/ATN Diabetes mellitus type 2 Bipolar disorder Schizophrenia Ileus is suspected following surgery Hypertension 06/09/2021. Continue IV antibiotics for now. Surgery following. Follow-up blood cultures. Continue SSRI, Glucophage and Accu-Cheks. Tight glycemic control. Advance diet as tolerated. Urology consultation pending. [facility] for BP 06/10/2021. Patient with episode of nausea and vomiting this morning. Continue Zofran as needed and add Reglan 10 mg IV every 6 hours. Blood cultures with no growth to date x2 days. Consider discharge today if nausea and vomiting resolves. If vomiting does not improve, check KUB to rule out ileus. 06/11/2021. Patient is POD#3 s/p lap appy for perforated appendicitis. KUB is suggestive postoperative ileus. Continue NGT to low intermittent suction. Continue IV fluid hydration and n.p.o. status. Continue pain control and antiemetics for N/V. Continue mobility/ambulation protocols. 06/12/2021. Follow-up KUB this a.m. KUB from yesterday showed no change in postoperative ileus. Continue n.p.o. status and advance diet per surgery recommendations. NGT to low intermittent suction. Creatinine was slightly elevated yesterday 1.4. Continue IV fluid hydration. Recheck BMP today 06/13: Patient remains clinically stable although a bit confused about bowel activity. KUB today shows mild improvement. ABBEY drain still in place and with output. Awaiting surgery evaluation there is documentation of BM yesterday. Leukocytosis is resolved. Discharge plan will be per surgeon. Requested outpatient to chair today. 06/14: Continue supportive care. Patient still with mild postoperative ileus encourage ambulation today. Anticipate discharge in a.m.. KUB reviewed in detail. 06/15: Patient seen and clinically stable no acute distress this morning was a bit drowsy but now improved. We will keep him on full liquid diet at least a week and then adjust to GI soft for another week until he sees the surgeon this has been explained to the patient. He is to continue to follow with his psychiatry physician. 06/16: Patient continues to be clinically stable ambulating no further drowsiness or dizziness. Clinically stable for discharge. Continue current management Disposition: 01 HOME / SELF CARE / HOMELESS Final Discharge Diagnosis (Prints w/discharge instructions): Sepsis secondary to gangrenous perforated acute appendicitis Time spent for discharge: 35 mins Core Measure Documentation - Palliative Care Palliative Care/ Comfort Measures: Not Applicable - Core Measures Any of the following diagnoses?: none Exam - Physical Exam Narrative exam: VITAL SIGNS: Reviewed. GENERAL: The patient appears normally developed, obese, lethargic vital signs as documented. HEAD: No signs of head trauma. EYES: Pupils are equal. Extraocular motions intact. EARS: Hearing grossly intact. MOUTH: Oropharynx is normal. NECK: No adenopathy, no JVD. CHEST: Chest with clear breath sounds bilaterally. No wheezes, rales, or rhonchi. CARDIAC: Regular rate and rhythm. S1 and S2, without murmurs, gallops, or rubs. VASCULAR: No Edema. Peripheral pulses normal and equal in all extremities. ABDOMEN: Soft, distended hypoactive bowel sounds ABBEY drain is in place. No rebound or guarding, and no masses palpated. MUSCULOSKELETAL: Good range of motion of all major joints. Extremities without clubbing, cyanosis or edema. NEUROLOGIC EXAM: Alert and oriented x 3 No focal sensory or strength deficits. Speech normal. Follows commands. PSYCHIATRIC: Mood normal. SKIN: detail exam as documented in skin assessment - Constitutional Vitals: Temp Pulse Resp BP Pulse Ox 98.2 F 95 H 20 122/81 97 06/16/21 05:17 06/16/21 05:17 06/16/21 05:17 06/16/21 05:17 06/16/21 05:17 Plan Activity: advance as tolerated, fall precautions Diet: low fat Special Instructions: record daily weights, record daily BP diary Care Plan Goals: ALSO FOLLOW WITH PSYCH Follow up with: PEPE MCCOY MD [Staff Physician] - 7 Days JG PARKS MD [Staff Physician] - 7 Days PRIMARY CARE, [Primary Care Provider] - 3-5 Days Prescriptions: amLODIPine 5 mg PO DAILY #30 Amoxicillin/Potassium Clav [Augmentin 875-125 Tablet] 1 each PO BID #10 tablet bisacodyL [Dulcolax suppos] 10 mg MO QDAY #14 supp.rect metFORMIN [Glucophage] 500 mg PO BID #60 Famotidine [Pepcid] 20 mg PO BID #60 tablet FLUoxetine [PROzac] 20 mg PO QDAY #14 capsule Other Discharge Orders: Physicial Therapy (Amb) Location: None Selected
--- NOTE | 2021-06-16 09:05 | Electrocardiograph Report ---
[facility] Test Date: 2021-06-16 Test Time: 07:21:25 Pat Name: JEMIMA ARCE Department: Room: A369 1 Gender: M [employer]: ANI : [id number] Requested By: MARIAH BOLANOS Order Number: [id number] Reading MD: Victorino Segovia Measurements Intervals [place] Rate: 93 P: 62 NC: 164 QRS: 69 QRSD: 100 T: 80 QT: 378 QTc: 470 Interpretive Statements Sinus rhythm Compared to ECG 06/07/2021 23:12:53 Sinus tachycardia no longer present Electronically Signed On 06-16-2021 9:04:34 EST by Victorino Segovia
[2021-06-16] MEDS: metFORMIN 500 MG TAB PO SCH (09:18)
[2021-06-16] MEDS: amLODIPine 5 MG TAB PO SCH (09:18)
[2021-06-16] MEDS: FAMOTIDINE 20 MG TAB PO SCH (09:18)
[2021-06-16] MEDS: HEPARIN 5,000 UNIT/1 ML VIAL SUB-Q SCH (09:19)
[2021-06-16] MEDS: SCOPOLAMINE TRANSDERMAL PATCH 72 HR TD SCH (09:20)
[2021-06-16] MEDS: FLUoxetine 20 MG CAP PO SCH (09:22)
[2021-06-16] MEDS: CLOZAPINE 100 MG PO SCH (09:24)
[2021-06-16 11:28] VITALS: BP 146/96
== END 2021-06-16 13:57 | disposition home health service (06) | DRG 853 ==
LOC: ED 22:44 → 3A 06-08 01:48 → 4A 06-08 09:18 → 3A 06-08 12:26
PROVIDERS: ADMIT Internal Medicine Geriatric Medicine; ATTEND Internal Medicine
PROC: 0DTJ4ZZ Resection of Appendix, Percutaneous Endoscopic Approach (ICD-10-PCS; principal; 2021-06-08)
DX: A41.9 Sepsis, unspecified organism (principal); K35.32 Acute appendicitis with perforation, localized peritonitis, and gangrene, without abscess; N17.0 Acute kidney failure with tubular necrosis; C64.9 Malignant neoplasm of unspecified kidney, except renal pelvis; K56.7 Ileus, unspecified; F20.9 Schizophrenia, unspecified; F31.9 Bipolar disorder, unspecified; Z79.84 Long term (current) use of oral hypoglycemic drugs; E11.9 Type 2 diabetes mellitus without complications; Z82.49 Family history of ischemic heart disease and other diseases of the circulatory system; J45.909 Unspecified asthma, uncomplicated
CPT/HCPCS: 36415; 71045; 74018; 74177; 80048; 80053; 80076; 82962; 83036; 83690; 83735; 84100; 85007; 85025; 87040; 88304; 90686; 90732; 93005; G0378; J3480; J3490; Q9967; J0360; J1100; J1170; J1644; J1815; J1885; J2060; J2250; J2270; J2370; J2405; J2543; J2704; J2710; J2765; J3010; J7030; J7120